=== PATIENT | female | born 1950 | race Hispanic/Latino ===

== ENCOUNTER 2020-01-27 11:12 | Inpatient (IN) | payer MEDICARE ==
[2020-01-27] MEDS ORDERED: MORPHINE 4 MG/1 ML INJ IV ONE ×2 (11:29→15:08)
[2020-01-27] MEDS ORDERED: ONDANSETRON 4 MG/2 ML INJ IV ONE ×2 (11:29→15:09)
[2020-01-27] MEDS ORDERED: FAMOTIDINE 20 MG/2 ML INJ IV ONE (11:30)
--- NOTE | 2020-01-27 11:32 | Emergency Department Report ---
ED N/V/D HPI - General Chief complaint: Abdominal Pain Stated complaint: ABDOMINAL PAIN Time Seen by Provider: 01/27/20 11:24 Source: EMS Mode of arrival: Ambulatory Limitations: No Limitations - History of Present Illness Initial comments: 70-year-old female with past medical history of hypertension and previous partial colectomy possibly secondary to perforated diverticulum (based on what patient describes ) presents to the hospital complaints of nausea, vomiting, abdominal pain for the last 2 days. Unable to tolerate p.o. Patient had a constant hard generalized pain worse in the mid and lower abdomen. Worse with palpation. No alleviating factors. She denies fever. Last bowel movement was approximately 1 week ago. She denies hematemesis but states the vomitus in color. Patient had her abdominal surgery performed by Dr. Powell 2 to 3 years ago at [facility]. Patient states she has been evaluated by Dr. Fuchs GI physician in the past - Related Data Allergies Allergy/AdvReac Type Severity Reaction Status Date / Time No Known Allergies Allergy Unverified 01/27/20 11:26 ED Review of Systems ROS: Stated complaint: ABDOMINAL PAIN Other details as noted in HPI Comment: All other systems reviewed and negative ED Past Medical Hx - Past Medical History Previous Medical History?: Yes Hx Hypertension: Yes - Surgical History Past Surgical History?: Yes Additional Surgical History: colon resection - Social History Smoking Status: Never Smoker Substance Use Type: None ED Physical Exam - General Limitations: No Limitations - Other Other exam information: General: Mild distress secondary to pain and vomiting Head: Atraumatic Eyes: normal appearance ENT: Moist mucous membranes Neck: Normal appearance, no midline tenderness Chest: Clear to auscultation bilaterally CV: Regular rate and rhythm Abdomen: Soft, diminished bowel sounds, previous surgical scars noted. Generalized pain greatest in the mid abdomen. No rebound or guarding. Active vomiting Back: Normal inspection Extremity: Normal inspection, full range of motion Neuro: Alert O x 3, no facial asymmetry, speech clear, no gross motor sensory deficit Psych: Appropriate behavior Skin: No rash ED Course Vital Signs 01/27/20 01/27/20 01/27/20 11:19 11:26 12:21 Temperature 97.9 F Pulse Rate 82 Respiratory 18 18 18 Rate Blood Pressure 145/55 Blood Pressure 145/55 [Right] O2 Sat by Pulse 100 100 Oximetry 01/27/20 15:12 Temperature Pulse Rate Respiratory 18 Rate Blood Pressure Blood Pressure [Right] O2 Sat by Pulse Oximetry - Consultations Consultation #1: 01/27/20 15:39 Case discussed with general surgeon Dr. Francois who is at the bedside evaluating patient. NG tube recommended if patient continues to vomit despite antiemetic. Recommend GI consultation Case also discussed with Dr. Kenny GI physician. Patient received GI consult during admission ED Medical Decision Making - Lab Data Result diagrams: 01/27/20 11:40 01/27/20 11:40 Lab Results 01/27/20 01/27/20 01/27/20 Range/Units 11:40 11:40 11:40 WBC 7.0 (4.5-11.0) K/mm3 RBC 4.88 (3.65-5.03) M/mm3 Hgb 13.2 (10.1-14.3) gm/dl Hct 39.1 (30.3-42.9) % MCV 80 (79-97) fl MCH 27 L (28-32) pg MCHC 34 (30-34) % RDW 18.3 H (13.2-15.2) % Plt Count 410 (140-440) K/mm3 Lymph % (Auto) 10.4 L (13.4-35.0) % [place] % (Auto) 6.9 (0.0-7.3) % Eos % (Auto) 0.0 (0.0-4.3) % Baso % (Auto) 0.1 (0.0-1.8) % Lymph # (Auto) 0.7 L (1.2-5.4) K/mm3 [place] # (Auto) 0.5 (0.0-0.8) K/mm3 Eos # (Auto) 0.0 (0.0-0.4) K/mm3 Baso # (Auto) 0.0 (0.0-0.1) K/mm3 Seg Neutrophils % 82.6 H (40.0-70.0) % Seg Neutrophils # 5.8 (1.8-7.7) K/mm3 Sodium 139 (137-145) mmol/L Potassium 2.9 L* (3.6-5.0) mmol/L Chloride 96.8 L (98-107) mmol/L Carbon Dioxide 31 H (22-30) mmol/L Anion Gap 14 mmol/L BUN 14 (7-17) mg/dL Creatinine 0.5 L (0.6-1.2) mg/dL Estimated GFR > 60 ml/min BUN/Creatinine Ratio 28 % Glucose 133 H (65-100) mg/dL Calcium 8.4 (8.4-10.2) mg/dL Magnesium (1.7-2.3) mg/dL Total Bilirubin 0.40 (0.1-1.2) mg/dL AST 12 (5-40) units/L ALT 7 (7-56) units/L Alkaline Phosphatase 120 (35-129) units/L Total Protein 7.2 (6.3-8.2) g/dL Albumin 3.5 L (3.9-5) g/dL Albumin/Globulin Ratio 0.9 % Lipase 11 L (13-60) units/L 01/27/20 Range/Units 11:40 WBC (4.5-11.0) K/mm3 RBC (3.65-5.03) M/mm3 Hgb (10.1-14.3) gm/dl Hct (30.3-42.9) % MCV (79-97) fl MCH (28-32) pg MCHC (30-34) % RDW (13.2-15.2) % Plt Count (140-440) K/mm3 Lymph % (Auto) (13.4-35.0) % [place] % (Auto) (0.0-7.3) % Eos % (Auto) (0.0-4.3) % Baso % (Auto) (0.0-1.8) % Lymph # (Auto) (1.2-5.4) K/mm3 [place] # (Auto) (0.0-0.8) K/mm3 Eos # (Auto) (0.0-0.4) K/mm3 Baso # (Auto) (0.0-0.1) K/mm3 Seg Neutrophils % (40.0-70.0) % Seg Neutrophils # (1.8-7.7) K/mm3 Sodium (137-145) mmol/L Potassium (3.6-5.0) mmol/L Chloride (98-107) mmol/L Carbon Dioxide (22-30) mmol/L Anion Gap mmol/L BUN (7-17) mg/dL Creatinine (0.6-1.2) mg/dL Estimated GFR ml/min BUN/Creatinine Ratio % Glucose (65-100) mg/dL Calcium (8.4-10.2) mg/dL Magnesium 2.00 (1.7-2.3) mg/dL Total Bilirubin (0.1-1.2) mg/dL AST (5-40) units/L ALT (7-56) units/L Alkaline Phosphatase (35-129) units/L Total Protein (6.3-8.2) g/dL Albumin (3.9-5) g/dL Albumin/Globulin Ratio % Lipase (13-60) units/L - Radiology Data Radiology results: report reviewed CT abdomen pelvis w con INDICATION: n,v hx of obstruction and parital colon resection. TECHNIQUE: All CT scans at this location are performed using CT dose reduction for ALARA by means of automated exposure control. COMPARISON: None available. FINDINGS: Lung bases are clear of acute disease. Slight atelectasis in the left base laterally. Diffuse hepatic steatosis, with no focal liver lesions. Gallbladder, spleen, pancreas, kidneys and adrenals are negative. Abdominal aorta is atherosclerotic but normal in size. No significant adenopathy. Pelvis The right colon and proximal transverse colon are fluid-filled and quite distended. Splenic flexure and more distal colon are normally distended, with postop change near the rectosigmoid junction, probably due to sigmoid resection. There are 3 ventral hernias. The superior midline hernia contains only fat, more inferior midline hernia appears to contain some mesentery but no bowel. However, the left mid abdominal hernia contains a loop of small bowel, but there does not appear to be obstruction at this level. There does appear to be obstruction at the level of the mid transverse colon. A discrete mass is difficult to identify, but there is abrupt transition between markedly distended proximal transverse colon and normal sized distal transverse colon, with dense soft tissue at the level of the transition, quite possibly mass. Urinary bladder is thick walled but unremarkable. Distal ureters are negative. Uterus is absent. Old right-sided pelvic fractures. Extensive bilateral sacral insufficiency fractures. No destructive lesions. IMPRESSION: 1. Obstruction at the level of mid transverse colon, quite possibly due to obstructing mass. 2. Postop change at the rectosigmoid junction, probably due to previous sigmoid resection, but there is no evidence of obstruction or abnormal mass at this level. 3. 3 separate ventral hernias, with the left-sided hernia containing a loop of small bowel. However, there is no evidence of obstruction at this level. 4. Hepatic steatosis. - Medical Decision Making Patient presents to the hospital nausea and vomiting. CT suggestive of large bowel structure secondary to colonic mass. Patient n.p.o. and received IV potassium for hypokalemia Critical Care Time: No Critical care attestation.: If time is entered above; I have spent that time in minutes in the direct care of this critically ill patient, excluding procedure time. ED Disposition Clinical Impression: Large bowel obstruction, History of partial surgical removal of colon, Hypokalemia, Colonic mass Ventral hernia Qualifiers: Obstruction and gangrene presence: without obstruction or gangrene Qualified Code(s): K43.9 - Ventral hernia without obstruction or gangrene Disposition: OP ADMIT IP TO THIS HOSP Is pt being admited?: Yes Condition: Stable Instructions: Abdominal Pain (ED) Referrals: PRIMARY CARE, [Primary Care Provider] - 3-5 Days Time of Disposition: 15:39 (Dr Tello/hosp)
[2020-01-27] MEDS ORDERED: SODIUM CHLORIDE 0.9% 1000 ML 1,000 ML IV ONE (11:40)
[2020-01-27 12:40] LABS: Basophils % (Auto) 0.1 % (0.0-1.8); Hematocrit 39.1 % (30.3-42.9); Hemoglobin 13.2 gm/dl (10.1-14.3); Lymphocytes # (Auto) 0.7 K/mm3 (1.2-5.4); Lymphocytes % (Auto) 10.4 % (13.4-35.0); Mean Corpuscular HGB Conc 34 % (30-34); Mean Corpuscular Volume 80 fl (79-97); Monocytes # (Auto) 0.5 K/mm3 (0.0-0.8); Monocytes % (Auto) 6.9 % (0.0-7.3); Platelet Count 410 K/mm3 (140-440); Red Blood Count 4.88 M/mm3 (3.65-5.03); Red Cell Distribution Width 18.3 % (13.2-15.2)
[2020-01-27 12:49] LABS: Alanine Aminotransferase 7 units/L (7-56); Albumin 3.5 g/dL (3.9-5); Blood Urea Nitrogen 14 mg/dL (7-17); Calcium 8.4 mg/dL (8.4-10.2); Hemolysis Index 18
[2020-01-27 12:52] LABS: BUN/Creatinine Ratio 28
[2020-01-27] MEDS: POTASSIUM CHLORIDE 10 MEQ 10 MEQ/100 ML BAG IV SCH ×4 (14:06→17:47)
--- NOTE | 2020-01-27 14:32 | Cat Scan Report ---
CT abdomen pelvis w con INDICATION: n,v hx of obstruction and parital colon resection. TECHNIQUE: All CT scans at this location are performed using CT dose reduction for ALARA by means of automated e xposure control. COMPARISON: None available. FINDINGS: Lung bases are clear of acute disease. Slight atelectasis in the left base laterally. Diffuse hepatic steatosis, with no focal liver lesions. Gallbladder, spleen, pancreas, kidneys and ad renals are negative. Abdominal aorta is atherosclerotic but normal in size. No significant adenopathy . Pelvis The right colon and proximal transverse colon are fluid-filled and quite distended. Splenic flexure a nd more distal colon are normally distended, with postop change near the rectosigmoid junction, proba james due to sigmoid resection. There are 3 ventral hernias. The superior midline hernia contains only fat, more inferior midline hernia appears to contain some mesentery but no bowel. However, the left m id abdominal hernia contains a loop of small bowel, but there does not appear to be obstruction at th is level. There does appear to be obstruction at the level of the mid transverse colon. A discrete mass is diff icult to identify, but there is abrupt transition between markedly distended proximal transverse colo n and normal sized distal transverse colon, with dense soft tissue at the level of the transition, qu ite possibly mass. Urinary bladder is thick walled but unremarkable. Distal ureters are negative. Uterus is absent. Old right-sided pelvic fractures. Extensive bilateral sacral insufficiency fractures. No destructive lesions. IMPRESSION: 1. Obstruction at the level of mid transverse colon, quite possibly due to obstructing mass. 2. Postop change at the rectosigmoid junction, probably due to previous sigmoid resection, but there is no evidence of obstruction or abnormal mass at this level. 3. 3 separate ventral hernias, with the left-sided hernia containing a loop of small bowel. However, there is no evidence of obstruction at this level. 4. Hepatic steatosis. Signer Name: Sotero Solomon MD Signed: 01/27/2020 2:27 PM Workstation Name: [id number]
[2020-01-27] MEDS ORDERED: SODIUM CHLORIDE 0.9% 1000 ML 1,000 ML ONE ×3 (14:45→17:34)
[2020-01-27] MEDS ORDERED: MORPHINE 4 MG/1 ML INJ ONE (15:01)
[2020-01-27] MEDS ORDERED: ONDANSETRON 4 MG/2 ML INJ ONE (15:01)
--- NOTE | 2020-01-27 15:40 | History and Physical Report ---
History of Present Illness Chief complaint: I cannot hold anything down History of present illness: 70 YO Female with HTN, GERD, Cervical Cancer, Chronic Hypokalemia S/P Bowel Resection, Nicotine Dependence presents to ED for evaluation. Patient states that she has experienced abdominal discomfort over the past several months with acutely worsening symptoms over the past 2 days. Patient acknowledges early satiety, nausea, feeling bloated, burping, hiccups, as well as multiple episodes of vomiting over the past 2 days. EMS was notified and upon arrival the patient was found to be in distress and subsequently transported to [facility] for further care and evaluation of the aforementioned symptoms. Patient seen and evaluated in the emergency department. All lab and imaging studies reviewed. Patient underwent CT scan of the abdomen and pelvis which revealed a large bowel obstruction. Patient admitted to surgical floor due to increased risk of worsening symptoms. Patient initiated on IV fluid resuscitation therapy. NG tube for gastric decompression with offered in the emergency department however the patient declined at the time of my evaluation. Patient denies fever, chills, chest pain, palpitations, productive cough, skin rash, recent ill contacts, or known exposure to COVID-19. All medication listed at time of admission has been reconciled. Advanced care planning conducted in the emergency department. Past History Past Medical History: cancer, GERD, hypertension Past Surgical History: hysterectomy, bowel surgery, Other (ISOs of [id number] metabolic versus) Social history: , smoking. denies: alcohol abuse, prescription drug abuse Family history: hypertension Medications and Allergies Allergies Allergy/AdvReac Type Severity Reaction Status Date / Time No Known Allergies Allergy Unverified 01/27/20 11:26 Active Meds: Active Medications Potassium Chloride (Kcl 10meq/100ml) 10 meq in 100 mls @ 100 mls/hr IV Q1H JAYY Stop: 01/27/20 16:59 Last Admin: 01/27/20 15:07 Dose: 100 mls/hr Documented by: Review of Systems Constitutional: no weight loss, no weight gain, no fever, no chills Ears, nose, mouth and throat: no ear pain, no ear discharge, no tinnitis, no decreased hearing, no nose pain Breasts: no change in shape, no swelling, no mass Cardiovascular: no chest pain, no orthopnea, no palpitations, no rapid/irregular heart beat, no edema Respiratory: no cough, no cough with sputum, no excessive sputum, no hemoptysis, no shortness of breath Gastrointestinal: abdominal pain, nausea, vomiting, constipation, early satiety, no hematemesis, no coffee ground emesis, no BRBPR, no melena, no hematochezia Genitourinary Female: no pelvic pain, no flank pain, no dysuria, no urinary frequency, no urgency Rectal: no pain, no incontinence, no bleeding Musculoskeletal: no neck stiffness, no neck pain, no shooting arm pain, no arm numbness/tingling, no low back pain, no leg numbness/tingling Integumentary: no rash, no pruritis, no redness, no sores, no wounds Neurological: no transient paralysis, no paralysis, no weakness, no parathesias, no numbness, no tingling, no seizures Psychiatric: no anxiety, no memory loss, no change in sleep habits, no sleep disturbances, no insomnia, no hypersomnia, no change in appetite Endocrine: no cold intolerance, no heat intolerance, no polyphagia, no excessive thirst, no polydipsia, no polyuria Hematologic/Lymphatic: no easy bruising, no easy bleeding, no lymphadenopathy, no lymphedema Allergic/Immunologic: no urticaria, no allergic rhinitis, no anaphylaxis, no angioedema Exam - Constitutional Vitals: Temp Pulse Resp BP Pulse Ox 97.9 F 87 18 145/55 100 01/27/20 11:19 01/27/20 11:19 01/27/20 15:12 01/27/20 11:19 01/27/20 11:26 General appearance: Present: no acute distress, mild distress, well-nourished - EENT Eyes: Present: PERRL ENT: hearing intact, clear oral mucosa - Neck Neck: Present: supple, normal ROM - Respiratory Respiratory effort: normal Respiratory: bilateral: CTA - Cardiovascular Heart Sounds: Present: S1 & S2. Absent: rub, click - Extremities Extremities: pulses symmetrical, No edema Peripheral Pulses: within normal limits - Abdominal General gastrointestinal: Present: soft, non-tender, non-distended, normal bowel sounds Localized gastrointestinal: tender: epigastric periumbilical Female genitourinary: Present: normal - Integumentary Integumentary: Present: clear, warm, dry - Musculoskeletal Musculoskeletal: gait normal, strength equal bilaterally - Psychiatric Psychiatric: appropriate mood/affect, intact judgment & insight - Neurologic Neurologic: CNII-XII intact, moves all extremities Results - Labs CBC & Chem 7: 01/27/20 11:40 01/27/20 11:40 Labs: Abnormal lab results 01/27/20 01/27/20 01/27/20 Range/Units 11:40 11:40 11:40 MCH 27 L (28-32) pg RDW 18.3 H (13.2-15.2) % Lymph % (Auto) 10.4 L (13.4-35.0) % Lymph # (Auto) 0.7 L (1.2-5.4) K/mm3 Seg Neutrophils % 82.6 H (40.0-70.0) % Potassium 2.9 L* (3.6-5.0) mmol/L Chloride 96.8 L (98-107) mmol/L Carbon Dioxide 31 H (22-30) mmol/L Creatinine 0.5 L (0.6-1.2) mg/dL Glucose 133 H (65-100) mg/dL Albumin 3.5 L (3.9-5) g/dL Lipase 11 L (13-60) units/L Assessment and Plan - Patient Problems (1) Large bowel obstruction Current Visit: Yes Status: Acute Plan to address problem: CT scan abdomen and pelvis, surgical team consulted, GI team consulted, serial physical exam, n.p.o., further care and evaluation as per surgical team. Nasogastric decompression attempted. Patient declined NG tube at the time of my evaluation. (2) Hypokalemia Current Visit: Yes Status: Acute Plan to address problem: Repleted in ED, repeat BMP in a.m. (3) Hypertension Current Visit: Yes Status: Acute Qualifiers: Hypertension type: essential hypertension Qualified Code(s): I10 - Es sential (primary) hypertension Plan to address problem: Monitor blood pressure every shift, continue medical management (4) GERD (gastroesophageal reflux disease) Current Visit: Yes Status: Acute Qualifiers: Esophagitis presence: without esophagitis Qualified Code(s): K21.9 - Gastro-esophageal reflux disease without esophagitis Plan to address problem: PPI therapy, supportive care. (5) DVT prophylaxis Current Visit: Yes Status: Acute Plan to address problem: SCD to bilateral lower extremities while in bed (6) Advance care planning Current Visit: Yes Status: Acute Plan to address problem: Disease education conducted, patient is full code, care plan discussed, prognosis discussed, patient knowledges understanding and agreement with care plan, +30 minutes. (7) Nicotine dependence unspecified, with withdrawal Current Visit: Yes Status: Acute Qualifiers: Nicotine product type: cigarettes Qualified Code(s): F17.213 - Nicotine dependence, cigarettes, with withdrawal Plan to address problem: Supportive care, behavior change counseling, +15 minutes.
[2020-01-27] MEDS ORDERED: LIDOCAINE VISCOUS 2% 15 ML ORAL LIQD PO ONE (16:01)
--- NOTE | 2020-01-27 16:18 | Consultation ---
History of Present Illness Consult date: 01/27/20 Reason for consult: abdominal pain Chief complaint: abdominal pain - History of present illness History of present illness: 70-year-old female with past medical history of hypertension, perforated diverti culitis status post ex lap Padilla's procedure with subsequent reversal by Dr. Powell at [facility]. The patient states that she has been having intermittent left upper quadrant abdominal pain for the past several months. This is been associated with early satiety, nausea, bloating, burping/hiccups. In the last 2 days this has become more significant and has been associated with nausea and vomiting. The pain is sharp and does not radiate. She feels more bloated than usual. She has a history of chronic constipation and usually will have a bowel movement once every week, sometimes less frequently. This is normal for her. She states that her last bowel movement was 1 week ago and did not contain blood and was not dark. She states that prior to her diverticulitis surgery, she was sometimes only having bowel movements once a month. She is on Amitiza. She states that her last colonoscopy was 2 or so years ago, after her Padilla's procedure but before her reversal. She also had an EGD at this time. She was not informed of any abnormal findings. Her pain has been controlled with morphine given to her in the emergency room. No fevers or chills, chest pain, shortness of breath. Past History Past Medical History: GERD, hypertension, other (Cervical cancer, chronic hypokalemia) Past Surgical History: hysterectomy, bowel surgery (Exploratory laparotomy, Padilla's procedure. Reversal of colostomy.) Social history: smoking (2 packs every 3 days). denies: alcohol abuse, presc ription drug abuse Family history: no significant family history Medications and Allergies Allergies Allergy/AdvReac Type Severity Reaction Status Date / Time No Known Allergies Allergy Unverified 01/27/20 11:26 Active Meds: Active Medications Potassium Chloride (Kcl 10meq/100ml) 10 meq in 100 mls @ 100 mls/hr IV Q1H JAYY Stop: 01/27/20 16:59 Last Admin: 01/27/20 16:03 Dose: 100 mls/hr Documented by: Review of Systems All systems: negative (10 point ROS performed and negative except for that listed in HPI) Exam Vital Signs Temp Pulse Resp BP Pulse Ox 97.7 F 87 18 145/55 100 01/27/20 11:19 01/27/20 11:19 01/27/20 11:19 01/27/20 11:19 01/27/20 11:19 Narrative exam: Gen.: Awake, alert, oriented 3. No apparent distress ENT: Dry mucous membranes. Trachea midline. No lymphadenopathy. No scleral icterus or conjunctival pallor CV: S1, S2 present Respiratory: No audible wheezes Abdomen: Soft, mildly distended, mild discomfort on palpation of the left upper quadrant and right upper quadrant. No rebound, rigidity, guarding Extremities: No clubbing, cyanosis, edema Results - Labs 01/27/20 11:40 01/27/20 11:40 Abnormal lab results 01/27/20 01/27/20 01/27/20 Range/Units 11:40 11:40 11:40 MCH 27 L (28-32) pg RDW 18.3 H (13.2-15.2) % Lymph % (Auto) 10.4 L (13.4-35.0) % Lymph # (Auto) 0.7 L (1.2-5.4) K/mm3 Seg Neutrophils % 82.6 H (40.0-70.0) % Potassium 2.9 L* (3.6-5.0) mmol/L Chloride 96.8 L (98-107) mmol/L Carbon Dioxide 31 H (22-30) mmol/L Creatinine 0.5 L (0.6-1.2) mg/dL Glucose 133 H (65-100) mg/dL Albumin 3.5 L (3.9-5) g/dL Lipase 11 L (13-60) units/L Diabetes panel 01/27/20 Range/Units 11:40 Sodium 139 (137-145) mmol/L Potassium 2.9 L* (3.6-5.0) mmol/L Chloride 96.8 L (98-107) mmol/L Carbon Dioxide 31 H (22-30) mmol/L BUN 14 (7-17) mg/dL Creatinine 0.5 L (0.6-1.2) mg/dL Glucose 133 H (65-100) mg/dL Calcium 8.4 (8.4-10.2) mg/dL AST 12 (5-40) units/L ALT 7 (7-56) units/L Alkaline Phosphatase 120 (35-129) units/L Total Protein 7.2 (6.3-8.2) g/dL Albumin 3.5 L (3.9-5) g/dL Calcium panel 01/27/20 Range/Units 11:40 Calcium 8.4 (8.4-10.2) mg/dL Albumin 3.5 L (3.9-5) g/dL Pituitary panel 01/27/20 Range/Units 11:40 Sodium 139 (137-145) mmol/L Potassium 2.9 L* (3.6-5.0) mmol/L Chloride 96.8 L (98-107) mmol/L Carbon Dioxide 31 H (22-30) mmol/L BUN 14 (7-17) mg/dL Creatinine 0.5 L (0.6-1.2) mg/dL Glucose 133 H (65-100) mg/dL Calcium 8.4 (8.4-10.2) mg/dL Adrenal panel 01/27/20 Range/Units 11:40 Sodium 139 (137-145) mmol/L Potassium 2.9 L* (3.6-5.0) mmol/L Chloride 96.8 L (98-107) mmol/L Carbon Dioxide 31 H (22-30) mmol/L BUN 14 (7-17) mg/dL Creatinine 0.5 L (0.6-1.2) mg/dL Glucose 133 H (65-100) mg/dL Calcium 8.4 (8.4-10.2) mg/dL Total Bilirubin 0.40 (0.1-1.2) mg/dL AST 12 (5-40) units/L ALT 7 (7-56) units/L Alkaline Phosphatase 120 (35-129) units/L Total Protein 7.2 (6.3-8.2) g/dL Albumin 3.5 L (3.9-5) g/dL - Imaging CT scan - abdomen: report reviewed, image reviewed CT scan - pelvis: report reviewed, image reviewed Assessment and Plan 70-year-old female with 1. Near complete obstruction at mid transverse colon 2. Multiple nonobstructing ventral hernias 3. Tobacco dependence CT scan abdomen and pelvis -multiple nonobstructing ventral hernias. There is an obstructing lesion at the mid transverse colon with fluid-filled colon proximal to this. There is also mildly distended fluid-filled loops of distal small bowel. There appears to be some stool in the distal transverse and descending colon. Postsurgical changes consistent with sigmoidectomy. Plan: 1. NPO 2. IVF 3. prn nausea and pain control 4. recommend NGT placement - keep to LIWS 5. DVT ppx 6. obs series in am 7. GI consult - for eval for cscope. D/W Dr. Kenny 8. smoking cessation discussed with patient 9. Will likely need a partial colon resection this admission. She is currently stable and as proximal colon appears to be decompressing into the small bowel, not a surgical emergency. 10. Covid testing ordered 11. replace K and obtain daily BMP Plan discussed with patient. All questions answered. Will follow closely. Thank you for this consultation. Please call with any questions or concerns. Evaluation and treatment of this patient was during the time of the national and state emergency arising from COVID19 coronavirus pandemic. Treatment and procedures performed meet the current and available best practice and guidelines for patient during the COVID pandemic.
[2020-01-27] MEDS ORDERED: ONDANSETRON 4 MG/2 ML INJ IV PRN (16:26)
[2020-01-27] MEDS ORDERED: NACL 0.9%/KCL 40 MEQ 40 MEQ/1,000 ML BAG IV SCH (17:00)
[2020-01-27] MEDS ORDERED: ALBUTEROL 2.5 MG/3 ML NEBU IH PRN (17:00)
[2020-01-27] MEDS ORDERED: POTASSIUM CHLORIDE 10 MEQ 10 MEQ/100 ML BAG IV ONE (17:32)
[2020-01-27] MEDS: SODIUM CHLORIDE 0.9% 1000 ML 1,000 ML IV SCH (22:13)
[2020-01-27] MEDS: ONDANSETRON 4 MG/2 ML INJ IV PRN (22:39)
[2020-01-27] MEDS: MORPHINE 2 MG/1 ML INJ IV PRN (22:40)
[2020-01-28 05:34] LABS: Basophils % (Auto) 0.4 % (0.0-1.8); Eosinophils % (Auto) 0.5 % (0.0-4.3); Hematocrit 34.2 % (30.3-42.9); Hemoglobin 11.2 gm/dl (10.1-14.3); Lymphocytes # (Auto) 0.9 K/mm3 (1.2-5.4); Lymphocytes % (Auto) 18.5 % (13.4-35.0); Mean Corpuscular HGB Conc 33 % (30-34); Mean Corpuscular Volume 81 fl (79-97); Monocytes # (Auto) 0.7 K/mm3 (0.0-0.8); Monocytes % (Auto) 14.1 % (0.0-7.3); Platelet Count 330 K/mm3 (140-440); Red Blood Count 4.22 M/mm3 (3.65-5.03); Red Cell Distribution Width 18.7 % (13.2-15.2)
[2020-01-28 06:05] LABS: Alanine Aminotransferase 6 units/L (7-56); Albumin 3.2 g/dL (3.9-5); Blood Urea Nitrogen 9 mg/dL (7-17); Calcium 7.1 mg/dL (8.4-10.2); Hemolysis Index 3
[2020-01-28 06:08] LABS: BUN/Creatinine Ratio 23
[2020-01-28] MEDS: MORPHINE 2 MG/1 ML INJ IV PRN ×3 (06:54→22:45)
[2020-01-28] MEDS: ONDANSETRON 4 MG/2 ML INJ IV PRN ×3 (06:58→22:45)
--- NOTE | 2020-01-28 09:16 | XRay Report ---
CHEST / ABDOMEN 2 VIEW INDICATION / CLINICAL INFORMATION: n/v. COMPARISON: CT abdomen pelvis 01/27/2020; CT chest 10/25/2011 FINDINGS: SUPPORT DEVICES: None. HEART / MEDIASTINUM: No significant abnormality. LUNGS / PLEURA: Blunting of the left costophrenic angle suggests small pleural effusion. Likely assoc iated passive atelectasis. Right lung base demonstrates some linear scarring versus atelectasis. No p neumothorax. TUBES / LINES: None. BOWEL GAS PATTERN: No significant abnormality. FREE AIR / EXTRALUMINAL GAS: None seen. ADDITIONAL FINDINGS: No significant additional findings. IMPRESSION: 1. Mild left pleural-parenchymal disease. No convincing evidence of bowel obstruction or pneumoperito neum. Signer Name: Paul Garcia MD Signed: 01/28/2020 9:11 AM Workstation Name: [id number]
[2020-01-28 12:06] LABS: Bacteria,Urine 2+ /HPF (Negative); Bilirubin,Urine NEG (Negative); Blood,Urine NEG (Negative); Color,Urine Yellow (Yellow); Mucus,Urine FEW /HPF; Protein,Urine <15 mg/dL mg/dL (Negative); Urobilinogen,Urine < 2.0 mg/dL (<2.0)
--- NOTE | 2020-01-28 12:29 | Gastroenterology Consultation ---
History of Present Illness - Reason for Consult Consult date: 01/28/[address] Colon Requesting physician: PRITESH POLLARD - History of Present Illness The patient is a 70 yo female with a hx of multiple surgeries after perf diverticulitis in 2018 (colostomy, infected wound, parastomal hernia, incarceration, colostomy takedown). She had a negative colonoscopy in 2019 (poor prep) via the ostomy, before re-anastamosis. She was admitted with abdominal pain, and a CT shows a stenotic lesion in the mid-transverse (not near the anastamosis). There is no weight loss, vomiting, or blood in the stools. She is a heavy smoker. She has no family hx of colon cancer. Since admit, her abdominal pain is improved, and she is passing flatus. Past History Past Medical History: cancer, GERD, hypertension Past Surgical History: hysterectomy, bowel surgery (colostomy/re-anastamosis (tics), parastomal hernia repair, wound infection debridement) Social history: , smoking. denies: alcohol abuse, prescription drug abuse Family history: hypertension Medications and Allergies Allergies Allergy/AdvReac Type Severity Reaction Status Date / Time No Known Allergies Allergy Unverified 01/27/20 11:26 Active Meds: Active Medications Acetaminophen (Tylenol) 650 mg PO Q4H PRN PRN Reason: Pain MILD(1-3)/Fever >100.5/CHAPA Albuterol (Proventil) 2.5 mg IH Q4HRT PRN PRN Reason: Shortness Of Breath Sodium Chloride (Nacl 0.9% 1000 Ml) 1,000 mls @ 42 mls/hr IV DIRECT [facility] Last Admin: 01/27/20 22:13 Dose: 42 mls/hr Documented by: Morphine Sulfate (Morphine) 2 mg IV Q4H PRN PRN Reason: Pain , Severe (7-10) Last Admin: 01/28/20 10:55 Dose: 2 mg Documented by: Ondansetron HCl (Zofran) 4 mg IV Q8H PRN PRN Reason: Nausea And Vomiting Last Admin: 01/28/20 06:58 Dose: 4 mg Documented by: Sodium Chloride (Sodium Chloride Flush Syringe 10 Ml) 10 ml IV BID [facility] Last Admin: 01/27/20 22:38 Dose: 10 ml Documented by: Sodium Chloride (Sodium Chloride Flush Syringe 10 Ml) 10 ml IV PRN PRN PRN Reason: LINE FLUSH REVIEWED AND RECONCILED Review of Systems - Review of Systems All systems: negative (as noted in the HPI) Exam - Constitutional Vital Signs: Temp Pulse Resp BP Pulse Ox 98.1 F 88 18 145/57 97 01/28/20 06:47 01/28/20 06:47 01/28/20 06:47 01/28/20 06:47 01/28/20 08:42 General appearance: no acute distress - EENT Eyes: PERRL, EOM intact ENT: hearing intact, poor dentition - Neck Neck: supple, normal ROM - Respiratory Respiratory effort: normal Respiratory: bilateral: wheezing - Cardiovascular Rhythm: regular Heart Sounds: Present: S1 & S2 Extremities: no ischemia, No edema - Gastrointestinal General gastrointestinal: Present: soft, non-tender, non-distended, other (Multiple scars and hernias) - Integumentary Integumentary: Present: clear, warm, dry - Neurologic Neurological: alert and oriented x3 - Labs CBC & Chem 7: 01/28/20 05:20 01/28/20 05:20 Lab Results: Laboratory Results - last 24 hr 01/27/20 01/27/20 01/27/20 11:40 11:40 11:40 WBC 7.0 RBC 4.88 Hgb 13.2 Hct 39.1 MCV 80 MCH 27 L MCHC 34 RDW 18.3 H Plt Count 410 Lymph % (Auto) 10.4 L [place] % (Auto) 6.9 Eos % (Auto) 0.0 Baso % (Auto) 0.1 Lymph # (Auto) 0.7 L [place] # (Auto) 0.5 Eos # (Auto) 0.0 Baso # (Auto) 0.0 Seg Neutrophils % 82.6 H Seg Neutrophils # 5.8 Sodium 139 Potassium 2.9 L* Chloride 96.8 L Carbon Dioxide 31 H Anion Gap 14 BUN 14 Creatinine 0.5 L Estimated GFR > 60 BUN/Creatinine Ratio 28 Glucose 133 H Lactic Acid Calcium 8.4 Magnesium Total Bilirubin 0.40 AST 12 ALT 7 Alkaline Phosphatase 120 Total Protein 7.2 Albumin 3.5 L Albumin/Globulin Ratio 0.9 Lipase 11 L Urine Color Urine Turbidity Urine pH Ur Specific [place] Urine Protein Urine Glucose (UA) Urine Ketones Urine Blood Urine Nitrite Urine Bilirubin Urine Urobilinogen Ur Leukocyte Esterase Urine WBC (Auto) Urine RBC (Auto) U Epithel Cells (Auto) Urine Bacteria (Auto) Urine Mucus 01/27/20 01/28/20 01/28/20 11:40 05:20 05:20 WBC 5.0 RBC 4.22 Hgb 11.2 Hct 34.2 MCV 81 MCH 27 L MCHC 33 RDW 18.7 H Plt Count 330 Lymph % (Auto) 18.5 [place] % (Auto) 14.1 H Eos % (Auto) 0.5 Baso % (Auto) 0.4 Lymph # (Auto) 0.9 L [place] # (Auto) 0.7 Eos # (Auto) 0.0 Baso # (Auto) 0.0 Seg Neutrophils % 66.5 Seg Neutrophils # 3.3 Sodium 138 Potassium 3.3 L Chloride 102.6 Carbon Dioxide 25 Anion Gap 14 BUN 9 Creatinine 0.4 L Estimated GFR > 60 BUN/Creatinine Ratio 23 Glucose 101 H Lactic Acid Calcium 7.1 L D Magnesium 2.00 Total Bilirubin 0.20 AST 11 ALT 6 L Alkaline Phosphatase 96 Total Protein 6.2 L Albumin 3.2 L Albumin/Globulin Ratio 1.1 Lipase Urine Color Urine Turbidity Urine pH Ur Specific [place] Urine Protein Urine Glucose (UA) Urine Ketones Urine Blood Urine Nitrite Urine Bilirubin Urine Urobilinogen Ur Leukocyte Esterase Urine WBC (Auto) Urine RBC (Auto) U Epithel Cells (Auto) Urine Bacteria (Auto) Urine Mucus 01/28/20 01/28/20 06:24 11:35 WBC RBC Hgb Hct MCV MCH MCHC RDW Plt Count Lymph % (Auto) [place] % (Auto) Eos % (Auto) Baso % (Auto) Lymph # (Auto) [place] # (Auto) Eos # (Auto) Baso # (Auto) Seg Neutrophils % Seg Neutrophils # Sodium Potassium Chloride Carbon Dioxide Anion Gap BUN Creatinine Estimated GFR BUN/Creatinine Ratio Glucose Lactic Acid 1.30 Calcium Magnesium Total Bilirubin AST ALT Alkaline Phosphatase Total Protein Albumin Albumin/Globulin Ratio Lipase Urine Color Yellow Urine Turbidity Slightly-cloudy Urine pH 6.0 Ur Specific [place] 1.013 Urine Protein <15 mg/dl Urine Glucose (UA) Neg Urine Ketones 20 Urine Blood Neg Urine Nitrite Pos Urine Bilirubin Neg Urine Urobilinogen < 2.0 Ur Leukocyte Esterase Neg Urine WBC (Auto) 1.0 Urine RBC (Auto) 1.0 U Epithel Cells (Auto) 1.0 Urine Bacteria (Auto) 2+ Urine Mucus Few Assessment and Plan - Patient Problems (1) Large bowel obstruction Current Visit: Yes Status: Acute Plan to address problem: - Unclear if intrinsic (mass or ischemic stenosis) or extrinsic (adhesions, distorted anatomy) - Will attempt gently prep given mild clinical improvement, and attempt colonoscopy to diagnose cause of obstruction prior to surgery.
[2020-01-28] MEDS ORDERED: MAGNESIUM CITRATE 300 ML ORAL LIQD PO NR (15:04)
--- NOTE | 2020-01-28 15:12 | Progress Note ---
Assessment and Plan 70-year-old female with 1. Near complete obstruction at mid transverse colon 2. Multiple nonobstructing ventral hernias 3. Tobacco dependence Obstruction series 01/28/2020 -nonobstructive bowel pattern. There is stool throughout the colon Covid test negative Plan: 1. NPO, may have ice chips 2. IVF 3. prn nausea and pain control -will add Compazine 4. NG tube insertion unsuccessful 5. DVT ppx 6. PPI twice daily 7. GI recs noted and appreciateddiscussed with Dr. Kenny. We will give the patient 1 dose of mag citrate p.o. and 1 Fleet enema today in preparation for colonoscopy later this week. 8. Daily BMP, replace electrolytes as needed Patient with complex abdominal surgical history. Will await results of colonoscopy to determine cause of narrowing at transverse colon. Plan discussed with patient. Plan discussed with the patient's son at bedside, [id number] Marilynn over the telephone at her request. The patient designates Amrilynn as the point of contact as needed. Thank you for this consultation. Please call with any questions or concerns. Evaluation and treatment of this patient was during the time of the national and state emergency arising from COVID19 coronavirus pandemic. Treatment and procedures performed meet the current and available best practice and guidelines for patient during the COVID pandemic. Subjective Date of service: 01/28/20 Narrative: Patient seen and examined. She complains of intermittent nausea which is controlled with antiemetics. She had 2 episodes of emesis this morning which were small in volume. She had 2 bowel movements which were soft and brown without melena or hematochezia. She states she is not passing flatus. Minimal abdominal pain which moves from the left quadrant to the right quadrant. No fevers or chills. No chest pain. Complains of burning in the epigastric region which he states is the reason for nausea. NG tube unable to be inserted. Additional history obtained from Dr. Kenny from patient's [facility] records. The patient had emergency surgery for perforated diverticulitis for which she underwent an exploratory laparotomy with Padilla's procedure. The patient had a complicated postoperative course including wound infection, postoperative seroma. She also developed a parastomal hernia with obstruction which was repaired with another surgery. She also underwent open Padilla's reversal. Objective Vital Signs - 12hr 01/28/20 01/28/20 01/28/20 06:47 08:42 11:17 Temperature 98.1 F 99.2 F Pulse Rate 88 81 Respiratory 18 18 Rate Blood Pressure 145/57 121/44 O2 Sat by Pulse 97 97 93 Oximetry - General physical appearance Narrative Exam: Gen.: Awake, alert, oriented 3. No apparent distress ENT: Trachea midline. No lymphadenopathy. No scleral icterus or conjunctival pallor CV: S1, S2 present Respiratory: No audible wheezes Abdomen: Soft, nondistended, nontender. No rebound, rigidity, guarding Extremities: No clubbing, cyanosis, edema - Labs 01/28/20 05:20 01/28/20 05:20 Diabetes panel 01/28/20 Range/Units 05:20 Sodium 138 (137-145) mmol/L Potassium 3.3 L (3.6-5.0) mmol/L Chloride 102.6 (98-107) mmol/L Carbon Dioxide 25 (22-30) mmol/L BUN 9 (7-17) mg/dL Creatinine 0.4 L (0.6-1.2) mg/dL Glucose 101 H (65-100) mg/dL Calcium 7.1 L D (8.4-10.2) mg/dL AST 11 (5-40) units/L ALT 6 L (7-56) units/L Alkaline Phosphatase 96 (35-129) units/L Total Protein 6.2 L (6.3-8.2) g/dL Albumin 3.2 L (3.9-5) g/dL Calcium panel 01/28/20 Range/Units 05:20 Calcium 7.1 L D (8.4-10.2) mg/dL Albumin 3.2 L (3.9-5) g/dL Pituitary panel 01/28/20 Range/Units 05:20 Sodium 138 (137-145) mmol/L Potassium 3.3 L (3.6-5.0) mmol/L Chloride 102.6 (98-107) mmol/L Carbon Dioxide 25 (22-30) mmol/L BUN 9 (7-17) mg/dL Creatinine 0.4 L (0.6-1.2) mg/dL Glucose 101 H (65-100) mg/dL Calcium 7.1 L D (8.4-10.2) mg/dL Adrenal panel 01/28/20 Range/Units 05:20 Sodium 138 (137-145) mmol/L Potassium 3.3 L (3.6-5.0) mmol/L Chloride 102.6 (98-107) mmol/L Carbon Dioxide 25 (22-30) mmol/L BUN 9 (7-17) mg/dL Creatinine 0.4 L (0.6-1.2) mg/dL Glucose 101 H (65-100) mg/dL Calcium 7.1 L D (8.4-10.2) mg/dL Total Bilirubin 0.20 (0.1-1.2) mg/dL AST 11 (5-40) units/L ALT 6 L (7-56) units/L Alkaline Phosphatase 96 (35-129) units/L Total Protein 6.2 L (6.3-8.2) g/dL Albumin 3.2 L (3.9-5) g/dL
--- NOTE | 2020-01-28 16:44 | Progress Note ---
Assessment and Plan Assessment and plan: --Near complete obstruction of transverse colon . Current Visit: Yes Status: Acute Plan to address problem: N.p.o. status, IV fluids NGT intermittent suction as needed Supportive care Surgery following GI consulted --Hypokalemia Current Visit: Yes Status: Acute Plan to address problem: Replenish per protocol Monitor electrolytes, check magnesium --Hypertension Current Visit: Yes Status: Acute Plan to address problem: Monitor blood pressure Adjust medications as needed -- GERD (gastroesophageal reflux disease) Current Visit: Yes Status: Acute Plan to address problem: PPI therapy, supportive care. -- DVT prophylaxis Current Visit: Yes Status: Acute Plan to address problem: SCD to bilateral lower extremities while in bed --Advance care planning Current Visit: Yes Status: Acute Plan to address problem: Full code es. --Ongoing tobacco use; Current Visit: Yes Status: Acute Plan to address problem: Smoking cessation Advised nicotine patch as needed Glucose monitor the patient and adjust the management as needed Consultants evaluation and recommendations noted and appreciated Plan of care reviewed with the patient and her nurse History Interval history: I have seen and examined the patient at the bedside Patient's chart and medications reviewed Patient is admitted bowel obstruction Surgery evaluated the patient, n.p.o. status Patient complains of some mild discomfort in the abdomen No nausea vomiting Vital signs reviewed Hospitalist Physical - Constitutional Vitals: Temp Pulse Resp BP Pulse Ox 99.2 F 81 18 121/44 93 01/28/20 11:17 01/28/20 11:17 01/28/20 11:17 01/28/20 11:17 01/28/20 11:17 General appearance: Present: no acute distress, mild distress, well-nourished - EENT Eyes: Present: PERRL, EOM intact - Neck Neck: Present: supple, normal ROM - Respiratory Respiratory effort: normal Respiratory: bilateral: diminished, negative: rales, rhonchi, wheezing - Cardiovascular Rhythm: regular Heart Sounds: Present: S1 & S2 - Extremities Extremities: no ischemia, No edema - Abdominal General gastrointestinal: soft, non-tender, non-distended - Integumentary Integumentary: Present: clear, warm - Psychiatric Psychiatric: appropriate mood/affect, cooperative - Neurologic Neurologic: moves all extremities Results - Labs CBC & Chem 7: 01/28/20 05:20 01/29/20 07:31 Labs: Laboratory Last Values WBC 5.0 K/mm3 (4.5-11.0) 01/28/20 05:20 RBC 4.22 M/mm3 (3.65-5.03) 01/28/20 05:20 Hgb 11.2 gm/dl (10.1-14.3) 01/28/20 05:20 Hct 34.2 % (30.3-42.9) 01/28/20 05:20 MCV 81 fl (79-97) 01/28/20 05:20 MCH 27 pg (28-32) L 01/28/20 05:20 MCHC 33 % (30-34) 01/28/20 05:20 RDW 18.7 % (13.2-15.2) H 01/28/20 05:20 Plt Count 330 K/mm3 (140-440) 01/28/20 05:20 Lymph % (Auto) 18.5 % (13.4-35.0) 01/28/20 05:20 [place] % (Auto) 14.1 % (0.0-7.3) H 01/28/20 05:20 Eos % (Auto) 0.5 % (0.0-4.3) 01/28/20 05:20 Baso % (Auto) 0.4 % (0.0-1.8) 01/28/20 05:20 Lymph # (Auto) 0.9 K/mm3 (1.2-5.4) L 01/28/20 05:20 [place] # (Auto) 0.7 K/mm3 (0.0-0.8) 01/28/20 05:20 Eos # (Auto) 0.0 K/mm3 (0.0-0.4) 01/28/20 05:20 Baso # (Auto) 0.0 K/mm3 (0.0-0.1) 01/28/20 05:20 Seg Neutrophils % 66.5 % (40.0-70.0) 01/28/20 05:20 Seg Neutrophils # 3.3 K/mm3 (1.8-7.7) 01/28/20 05:20 Sodium 138 mmol/L (137-145) 01/28/20 05:20 Potassium 3.3 mmol/L (3.6-5.0) L 01/28/20 05:20 Chloride 102.6 mmol/L (98-107) 01/28/20 05:20 Carbon Dioxide 25 mmol/L (22-30) 01/28/20 05:20 Anion Gap 14 mmol/L 01/28/20 05:20 BUN 9 mg/dL (7-17) 01/28/20 05:20 Creatinine 0.4 mg/dL (0.6-1.2) L 01/28/20 05:20 Estimated GFR > 60 ml/min 01/28/20 05:20 BUN/Creatinine Ratio 23 % 01/28/20 05:20 Glucose 101 mg/dL (65-100) H 01/28/20 05:20 Lactic Acid 1.30 mmol/L (0.7-2.0) 01/28/20 06:24 Calcium 7.1 mg/dL (8.4-10.2) L D 01/28/20 05:20 Magnesium 2.00 mg/dL (1.7-2.3) 01/27/20 11:40 Total Bilirubin 0.20 mg/dL (0.1-1.2) 01/28/20 05:20 AST 11 units/L (5-40) 01/28/20 05:20 ALT 6 units/L (7-56) L 01/28/20 05:20 Alkaline Phosphatase 96 units/L (35-129) 01/28/20 05:20 Total Protein 6.2 g/dL (6.3-8.2) L 01/28/20 05:20 Albumin 3.2 g/dL (3.9-5) L 01/28/20 05:20 Albumin/Globulin Ratio 1.1 % 01/28/20 05:20 Lipase 11 units/L (13-60) L 01/27/20 11:40 Urine Color Yellow (Yellow) 01/28/20 11:35 Urine Turbidity Slightly-cloudy (Clear) 01/28/20 11:35 Urine pH 6.0 (5.0-7.0) 01/28/20 11:35 Ur Specific [place] 1.013 (1.003-1.030) 01/28/20 11:35 Urine Protein <15 mg/dl mg/dL (Negative) 01/28/20 11:35 Urine Glucose (UA) Neg mg/dL (Negative) 01/28/20 11:35 Urine Ketones 20 mg/dL (Negative) 01/28/20 11:35 Urine Blood Neg (Negative) 01/28/20 11:35 Urine Nitrite Pos (Negative) 01/28/20 11:35 Urine Bilirubin Neg (Negative) 01/28/20 11:35 Urine Urobilinogen < 2.0 mg/dL (<2.0) 01/28/20 11:35 Ur Leukocyte Esterase Neg (Negative) 01/28/20 11:35 Urine WBC (Auto) 1.0 /HPF (0.0-6.0) 01/28/20 11:35 Urine RBC (Auto) 1.0 /HPF (0.0-6.0) 01/28/20 11:35 U Epithel Cells (Auto) 1.0 /HPF (0-13.0) 01/28/20 11:35 Urine Bacteria (Auto) 2+ /HPF (Negative) 01/28/20 11:35 Urine Mucus Few /HPF 01/28/20 11:35 Coronavirus (PCR) Negative (Negative) 01/28/20 09:51 [place]/IV: Voiding Method Toilet IV Catheter Type [Right INT / Saline Lock Forearm] Active Medications - Current Medications Current Medications: Generic Name Dose Route Start Last Admin Trade Name Freq PRN Reason Stop Dose Admin Acetaminophen 650 mg 01/27/20 17:00 Tylenol PO Q4H PRN Pain MILD(1-3)/Fever >100.5/CHAPA Albuterol 2.5 mg 01/27/20 17:00 Proventil IH Q4HRT PRN Shortness Of Breath Sodium Chloride 1,000 mls @ 42 mls/hr 01/27/20 17:00 01/27/20 22:13 Nacl 0.9% 1000 Ml IV 42 mls/hr DIRECT JAYY Administration Magnesium Citrate 300 ml 01/28/20 15:04 Citrate Of Magnesia PO 01/28/20 18:00 ONCE NR Morphine Sulfate 2 mg 01/27/20 17:00 01/28/20 10:55 Morphine IV 2 mg Q4H PRN Administration Pain , Severe (7-10) Ondansetron HCl 4 mg 01/28/20 16:00 Zofran IV Q6H PRN Nausea And Vomiting Pantoprazole Sodium 40 mg 01/28/20 16:00 Protonix IV BID JAYY Prochlorperazine Edisylate 5 mg 01/28/20 16:00 Compazine IV Q6H PRN Nausea And Vomiting Sodium Chloride 10 ml 01/27/20 22:00 01/28/20 12:51 Sodium Chloride Flush Syringe 10 Ml IV Not Given BID JAYY Sodium Chloride 10 ml 01/27/20 17:00 Sodium Chloride Flush Syringe 10 Ml IV PRN PRN LINE FLUSH
[2020-01-28] MEDS: PANTOPRAZOLE 40 MG INJ IV SCH ×2 (18:00→21:48)
[2020-01-28] MEDS: SODIUM CHLORIDE 0.9% 1000 ML 1,000 ML IV SCH (18:09)
[2020-01-28] MEDS: POTASSIUM CHLORIDE 10 MEQ 10 MEQ/100 ML BAG IV SCH ×2 (21:49→22:19)
[2020-01-29] MEDS: PROCHLORPERAZINE EDISYLATE 10 MG/2 ML VIAL IV PRN ×3 (05:37→23:26)
[2020-01-29 08:24] LABS: Blood Urea Nitrogen 10 mg/dL (7-17); Hemolysis Index 5
[2020-01-29 08:27] LABS: BUN/Creatinine Ratio 20
[2020-01-29] MEDS ORDERED: MAGNESIUM CITRATE 300 ML ORAL LIQD PO SCH (10:00)
[2020-01-29] MEDS: POTASSIUM CHLORIDE 10 MEQ 10 MEQ/100 ML BAG IV SCH ×4 (10:00→18:00)
[2020-01-29] MEDS: PANTOPRAZOLE 40 MG INJ IV SCH ×2 (10:22→22:00)
[2020-01-29] MEDS: ONDANSETRON 4 MG/2 ML INJ IV PRN ×2 (10:23→19:57)
--- NOTE | 2020-01-29 10:31 | Progress Note ---
Assessment and Plan Assessment and plan: --COVID-19 test negative --Severe hypokalemia; K; 2.9 Current Visit: Yes Status: Acute Plan to address problem: Replenished with IV KCl Check magnesium levels, closely monitor electrolytes --Near complete obstruction of transverse colon Current Visit: Yes Status: Acute Plan to address problem: Symptoms slightly improved, IV fluids GI evaluation noted and appreciated, started clear liquids Possible endoscopy tomorrow per GI N.p.o. from midnight -- Hypertension/moderate control Current Visit: Yes Status: Acute Plan to address problem: Monitor blood pressure every shift, continue medical management --GERD (gastroesophageal reflux disease) Current Visit: Yes Status: Acute Plan to address problem: PPI therapy, supportive care. -- DVT prophylaxis Current Visit: Yes Status: Acute Plan to address problem: SCD to bilateral lower extremities while in bed -- Advance care planning Current Visit: Yes Status: Acute Plan to address problem: Full code --Ongoing tobacco use Current Visit: Yes Status: Acute Smoking cessation, nicotine patch as needed To closely and adjust management as needed [employer] recommendations noted and appreciated Possible endoscopy tomorrow Plan of care reviewed with the patient and her nurse History Interval history: I have seen and examined the patient at the bedside Patient feels better tolerating clear liquids Had flatus and bowel movement No new complaints vital signs stable GI evaluated possible endoscopy tomorrow Hospitalist Physical - Constitutional Vitals: Temp Pulse Resp BP Pulse Ox 98.0 F 88 16 112/64 95 01/29/20 07:12 01/29/20 07:12 01/29/20 07:12 01/29/20 07:12 01/29/20 09:10 General appearance: Present: no acute distress, mild distress, well-nourished - EENT Eyes: Present: PERRL, EOM intact - Neck Neck: Present: supple, normal ROM - Respiratory Respiratory effort: normal Respiratory: bilateral: diminished, negative: rales, rhonchi, wheezing - Cardiovascular Rhythm: regular Heart Sounds: Present: S1 & S2 - Extremities Extremities: no ischemia, No edema - Abdominal General gastrointestinal: soft, non-tender, non-distended, normal bowel sounds - Integumentary Integumentary: Present: clear, warm - Psychiatric Psychiatric: appropriate mood/affect, cooperative - Neurologic Neurologic: CNII-XII intact, moves all extremities Results - Labs CBC & Chem 7: 01/28/20 05:20 01/29/20 07:31 Labs: Laboratory Last Values WBC 5.0 K/mm3 (4.5-11.0) 01/28/20 05:20 RBC 4.22 M/mm3 (3.65-5.03) 01/28/20 05:20 Hgb 11.2 gm/dl (10.1-14.3) 01/28/20 05:20 Hct 34.2 % (30.3-42.9) 01/28/20 05:20 MCV 81 fl (79-97) 01/28/20 05:20 MCH 27 pg (28-32) L 01/28/20 05:20 MCHC 33 % (30-34) 01/28/20 05:20 RDW 18.7 % (13.2-15.2) H 01/28/20 05:20 Plt Count 330 K/mm3 (140-440) 01/28/20 05:20 Lymph % (Auto) 18.5 % (13.4-35.0) 01/28/20 05:20 [place] % (Auto) 14.1 % (0.0-7.3) H 01/28/20 05:20 Eos % (Auto) 0.5 % (0.0-4.3) 01/28/20 05:20 Baso % (Auto) 0.4 % (0.0-1.8) 01/28/20 05:20 Lymph # (Auto) 0.9 K/mm3 (1.2-5.4) L 01/28/20 05:20 [place] # (Auto) 0.7 K/mm3 (0.0-0.8) 01/28/20 05:20 Eos # (Auto) 0.0 K/mm3 (0.0-0.4) 01/28/20 05:20 Baso # (Auto) 0.0 K/mm3 (0.0-0.1) 01/28/20 05:20 Seg Neutrophils % 66.5 % (40.0-70.0) 01/28/20 05:20 Seg Neutrophils # 3.3 K/mm3 (1.8-7.7) 01/28/20 05:20 Sodium 143 mmol/L (137-145) 01/29/20 07:31 Potassium 2.9 mmol/L (3.6-5.0) L* 01/29/20 07:31 Chloride 104.0 mmol/L (98-107) 01/29/20 07:31 Carbon Dioxide 27 mmol/L (22-30) 01/29/20 07:31 Anion Gap 15 mmol/L 01/29/20 07:31 BUN 10 mg/dL (7-17) 01/29/20 07:31 Creatinine 0.5 mg/dL (0.6-1.2) L 01/29/20 07:31 Estimated GFR > 60 ml/min 01/29/20 07:31 BUN/Creatinine Ratio 20 % 01/29/20 07:31 Glucose 83 mg/dL (65-100) 01/29/20 07:31 Lactic Acid 1.30 mmol/L (0.7-2.0) 01/28/20 06:24 Calcium 7.0 mg/dL (8.4-10.2) L 01/29/20 07:31 Magnesium 2.00 mg/dL (1.7-2.3) 01/27/20 11:40 Total Bilirubin 0.20 mg/dL (0.1-1.2) 01/28/20 05:20 AST 11 units/L (5-40) 01/28/20 05:20 ALT 6 units/L (7-56) L 01/28/20 05:20 Alkaline Phosphatase 96 units/L (35-129) 01/28/20 05:20 Total Protein 6.2 g/dL (6.3-8.2) L 01/28/20 05:20 Albumin 3.2 g/dL (3.9-5) L 01/28/20 05:20 Albumin/Globulin Ratio 1.1 % 01/28/20 05:20 Lipase 11 units/L (13-60) L 01/27/20 11:40 Urine Color Yellow (Yellow) 01/28/20 11:35 Urine Turbidity Slightly-cloudy (Clear) 01/28/20 11:35 Urine pH 6.0 (5.0-7.0) 01/28/20 11:35 Ur Specific [place] 1.013 (1.003-1.030) 01/28/20 11:35 Urine Protein <15 mg/dl mg/dL (Negative) 01/28/20 11:35 Urine Glucose (UA) Neg mg/dL (Negative) 01/28/20 11:35 Urine Ketones 20 mg/dL (Negative) 01/28/20 11:35 Urine Blood Neg (Negative) 01/28/20 11:35 Urine Nitrite Pos (Negative) 01/28/20 11:35 Urine Bilirubin Neg (Negative) 01/28/20 11:35 Urine Urobilinogen < 2.0 mg/dL (<2.0) 01/28/20 11:35 Ur Leukocyte Esterase Neg (Negative) 01/28/20 11:35 Urine WBC (Auto) 1.0 /HPF (0.0-6.0) 01/28/20 11:35 Urine RBC (Auto) 1.0 /HPF (0.0-6.0) 01/28/20 11:35 U Epithel Cells (Auto) 1.0 /HPF (0-13.0) 01/28/20 11:35 Urine Bacteria (Auto) 2+ /HPF (Negative) 01/28/20 11:35 Urine Mucus Few /HPF 01/28/20 11:35 Coronavirus (PCR) Negative (Negative) 01/28/20 09:51 [place]/IV: Voiding Method Toilet IV Catheter Type [Right INT / Saline Lock Forearm] Active Medications - Current Medications Current Medications: Generic Name Dose Route Start Last Admin Trade Name Freq PRN Reason Stop Dose Admin Acetaminophen 650 mg 01/27/20 17:00 Tylenol PO Q4H PRN Pain MILD(1-3)/Fever >100.5/CHAPA Albuterol 2.5 mg 01/27/20 17:00 Proventil IH Q4HRT PRN Shortness Of Breath Sodium Chloride 1,000 mls @ 42 mls/hr 01/27/20 17:00 01/28/20 18:09 Nacl 0.9% 1000 Ml IV 42 mls/hr DIRECT JAYY Administration Potassium Chloride 10 meq in 100 mls @ 100 mls/hr 01/29/20 09:30 01/29/20 10:00 Kcl 10meq/100ml IV 01/29/20 13:29 100 mls/hr Q1H JAYY Administration Magnesium Citrate 300 ml 01/29/20 10:00 01/29/20 10:29 Citrate Of Magnesia PO 01/29/20 14:00 300 ml ONCE JAYY Administration Morphine Sulfate 2 mg 01/27/20 17:00 01/28/20 22:45 Morphine IV 2 mg Q4H PRN Administration Pain , Severe (7-10) Ondansetron HCl 4 mg 01/28/20 16:00 01/29/20 10:23 Zofran IV 4 mg Q6H PRN Administration Nausea And Vomiting Pantoprazole Sodium 40 mg 01/28/20 16:00 01/29/20 10:22 Protonix IV 40 mg BID JAYY Administration Prochlorperazine Edisylate 5 mg 01/28/20 16:00 01/29/20 05:37 Compazine IV 5 mg Q6H PRN Administration Nausea And Vomiting Sodium Chloride 10 ml 01/27/20 22:00 01/28/20 21:49 Sodium Chloride Flush Syringe 10 Ml IV 10 ml BID JAYY Administration Sodium Chloride 10 ml 01/27/20 17:00 Sodium Chloride Flush Syringe 10 Ml IV PRN PRN LINE FLUSH
--- NOTE | 2020-01-29 10:40 | Gastroenterology Progress Note ---
Assessment and Plan - Patient Problems (1) Large bowel obstruction Current Visit: Yes Status: Acute Plan to address problem: - Unclear if intrinsic (mass or ischemic stenosis) or extrinsic (adhesions, distorted anatomy) - Symptoms of obstruction much improved, and will attempt bowel prep and colonoscopy tomorrow. Subjective Date of service: 01/29/20 Principal diagnosis: Abnormal CT Colon Interval history: The patient had 2 formed BMs overnight, and no N/V for 24 hours (and is tolerating water/ice chips and Mg Citrate). There was no blood in the stool, and her abdominal pain is much better. Objective - Constitutional Vitals: Temp Pulse Resp BP Pulse Ox 98.0 F 88 16 112/64 95 01/29/20 07:12 01/29/20 07:12 01/29/20 07:12 01/29/20 07:12 01/29/20 09:10 General appearance: no acute distress - Respiratory Respiratory effort: normal Respiratory: bilateral: wheezing - Cardiovascular Rhythm: regular Heart Sounds: Present: S1 & S2 - Gastrointestinal General gastrointestinal: Present: soft, non-tender, non-distended - Labs CBC & Chem 7: 01/28/20 05:20 01/29/20 07:31 Labs: Laboratory Results - last 24 hr 01/28/20 01/28/20 01/29/20 09:51 11:35 07:31 Sodium 143 Potassium 2.9 L* Chloride 104.0 Carbon Dioxide 27 Anion Gap 15 BUN 10 Creatinine 0.5 L Estimated GFR > 60 BUN/Creatinine Ratio 20 Glucose 83 Calcium 7.0 L Urine Color Yellow Urine Turbidity Slightly-cloudy Urine pH 6.0 Ur Specific [place] 1.013 Urine Protein <15 mg/dl Urine Glucose (UA) Neg Urine Ketones 20 Urine Blood Neg Urine Nitrite Pos Urine Bilirubin Neg Urine Urobilinogen < 2.0 Ur Leukocyte Esterase Neg Urine WBC (Auto) 1.0 Urine RBC (Auto) 1.0 U Epithel Cells (Auto) 1.0 Urine Bacteria (Auto) 2+ Urine Mucus Few Coronavirus (PCR) Negative
[2020-01-29] MEDS ORDERED: POLYETHYLENE GLYCOL/ELECT SOLN 4000 ML PO SCH (16:00)
[2020-01-29] MEDS ORDERED: SODIUM CHLORIDE 0.9% 1000 ML 1,000 ML with POTASSIUM CHLORIDE 20 MEQ IV SCH (16:35)
--- NOTE | 2020-01-29 17:30 | Progress Note ---
Assessment and Plan 70-year-old female with 1. Near complete obstruction at mid transverse colon 2. Multiple nonobstructing ventral hernias 3. Tobacco dependence Obstruction series 01/28/2020 -nonobstructive bowel pattern. There is stool throughout the colon Covid test negative Plan: 1. clear liquid diet, NPO p MN 2. IVF 3. prn nausea and pain control 4. DVT ppx 5. PPI twice daily 6. GI recs noted and appreciateddiscussed with Dr. Kenny. Pt for cscope tomorrow 8. Daily BMP, replace electrolytes as needed Patient with complex abdominal surgical history. Will await results of colonoscopy to determine cause of narrowing at transverse colon. Thank you for this consultation. Please call with any questions or concerns. Evaluation and treatment of this patient was during the time of the national and state emergency arising from COVID19 coronavirus pandemic. Treatment and procedures performed meet the current and available best practice and guidelines for patient during the COVID pandemic. Subjective Date of service: 01/29/20 Narrative: Pt seen and examined. +Nausea but not vomiting. +BM. +Flatus. Tolerating clears. No abdominal pain. Objective Vital Signs - 12hr 01/29/20 01/29/20 01/29/20 07:12 09:10 11:07 Temperature 98.0 F 98.7 F Pulse Rate 88 89 Respiratory 16 20 Rate Blood Pressure 112/64 141/60 O2 Sat by Pulse 92 95 96 Oximetry - General physical appearance Narrative Exam: Gen.: Awake, alert, oriented 3. No apparent distress ENT: Trachea midline. No lymphadenopathy. No scleral icterus or conjunctival pallor CV: S1, S2 present Respiratory: No audible wheezes Abdomen: Soft, nondistended, nontender. No rebound, rigidity, guarding Extremities: No clubbing, cyanosis, edema - Labs 01/28/20 05:20 01/29/20 07:31 Diabetes panel 01/29/20 Range/Units 07:31 Sodium 143 (137-145) mmol/L Potassium 2.9 L* (3.6-5.0) mmol/L Chloride 104.0 (98-107) mmol/L Carbon Dioxide 27 (22-30) mmol/L BUN 10 (7-17) mg/dL Creatinine 0.5 L (0.6-1.2) mg/dL Glucose 83 (65-100) mg/dL Calcium 7.0 L (8.4-10.2) mg/dL Calcium panel 01/29/20 Range/Units 07:31 Calcium 7.0 L (8.4-10.2) mg/dL Pituitary panel 01/29/20 Range/Units 07:31 Sodium 143 (137-145) mmol/L Potassium 2.9 L* (3.6-5.0) mmol/L Chloride 104.0 (98-107) mmol/L Carbon Dioxide 27 (22-30) mmol/L BUN 10 (7-17) mg/dL Creatinine 0.5 L (0.6-1.2) mg/dL Glucose 83 (65-100) mg/dL Calcium 7.0 L (8.4-10.2) mg/dL Adrenal panel 01/29/20 Range/Units 07:31 Sodium 143 (137-145) mmol/L Potassium 2.9 L* (3.6-5.0) mmol/L Chloride 104.0 (98-107) mmol/L Carbon Dioxide 27 (22-30) mmol/L BUN 10 (7-17) mg/dL Creatinine 0.5 L (0.6-1.2) mg/dL Glucose 83 (65-100) mg/dL Calcium 7.0 L (8.4-10.2) mg/dL
[2020-01-29] MEDS: MORPHINE 2 MG/1 ML INJ IV PRN (19:56)
[2020-01-29] MEDS: NACL 0.9%/KCL 20 MEQ 20 MEQ/1,000 ML BAG IV SCH (23:34)
[2020-01-30] MEDS: MORPHINE 2 MG/1 ML INJ IV PRN ×2 (00:49→06:35)
[2020-01-30] MEDS: ONDANSETRON 4 MG/2 ML INJ IV PRN ×4 (00:49→21:32)
[2020-01-30 06:44] LABS: Blood Urea Nitrogen 7 mg/dL (7-17); Calcium 7.2 mg/dL (8.4-10.2); Hemolysis Index 4
[2020-01-30 06:55] LABS: BUN/Creatinine Ratio 14
[2020-01-30] MEDS ORDERED: SODIUM CHLORIDE 0.9% 1000 ML 1,000 ML IV SCH (08:30)
[2020-01-30] MEDS ORDERED: SODIUM CHLORIDE 0.9% 1000 ML 1,000 ML ONE (09:12)
--- NOTE | 2020-01-30 09:18 | Anesthesia Consultation ---
Anesthesia Consult and Med Hx Date of service: 01/30/20 - Airway Anesthetic Teeth Evaluation: Edentulous ROM Head & Neck: Adequate Mental/Hyoid Distance: Adequate Mallampati Class: Class II - Pre-Operative Health Status ASA Pre-Surgery Classification: ASA3 Proposed Anesthetic Plan: MAC - Pulmonary Hx Smoking: Yes (1/2 PPD) Hx Asthma: No Hx Respiratory Symptoms: No SOB: No COPD: No Home Oxygen Therapy: No Hx Pneumonia: No Hx Sleep Apnea: No - Cardiovascular System Hx Hypertension: Yes Hx Coronary Artery Disease: No Hx Heart Attack/AMI: No Hx Angina: No Hx Percutaneous Transluminal Coronary Angioplasty (PTCA): No Hx Cardia Arrhythmia: No Hx Pacemaker: No Hx Internal Defibrillator: No Hx Valvular Heart Disease: No Hx Heart Murmur: No Hx Peripheral Vascular Disease: Yes - Central Nervous System Hx Neuromuscular Disorder: No (Fx pelvic bone/T11) Hx Seizures: No CVA: No Hx Back Pain: No Hx Psychiatric Problems: No - Gastrointestinal Hx Ulcer: No Hx Gastroesophageal Reflux Disease: Yes - Endocrine Hx Renal Disease: No (incontinence ) Hx End Stage Renal Disease: No Hx Cirrhosis: No Hx Liver Disease: No Hx Insulin Dependent Diabetes: No Hx Non-Insulin Dependent Diabetes: No Hx Thyroid Disease: No Hx Hypothyroidism: No Hx Hyperthyroidism: No - Hematic Hx Anemia: No Hx Sickle Cell Disease: No - Other Systems Hx Alcohol Use: No Hx Substance Use: No Hx Cancer: Yes (cervical cancer) Hx Obesity: No
--- NOTE | 2020-01-30 09:22 | Anesthesia Day of Surgery ---
Anesthesia Day of Surgery - Day of Surgery Patient Examined: Yes Patient H&P Reviewed: Yes Patient is NPO: Yes
[2020-01-30] MEDS ORDERED: LIDOCAINE MPF (2%) 20 MG/1 ML VIAL 5 ML ONE (10:24)
[2020-01-30] MEDS ORDERED: propofoL 200 MG/20 ML VIAL IV ONE ×2 (10:24→10:41)
--- NOTE | 2020-01-30 10:59 | Post Operative Note ---
Pre-op diagnosis: Colon lesion Post-op diagnosis: other (Colon stricture, poor prep, Colon lesion) Findings: 1. Benign colon stricture at approx 15cm from the anus (site of prior colorectal anastamosis) - Adult colonoscope would not pass - Dilated to 13.5mm with a TTS ballon - Upper endoscope advanced through narrowing with ease 2. Poor prep of left colon (solid and liquid stool throughout) 3. Endoscope advance to severe stenotic lesion in transverse colon and could not pass; no significant lumen seen - Concern would be for applecore colon cancer, ischemic colitis (focal), or unknown prior anastamosis - Biopsied lesion - Area marked with 5ml of thalia ink Procedure: Incomplete colonoscopy (due to obstruction/stricture in transverse colon) with cold biopsy, balloon dilation, and thalia ink tattoo Anesthesia: MAC Surgeon: BROCK SINGH Estimated blood loss: minimal Pathology: list (1. Transverse colon stricture) Specimen disposition: to lab Condition: stable Disposition: floor (Recs: 1. Clear liquid diet (since Xrays improved, and patient appears to be passing some liquid). 2. Miralax TID therapy. 3. Repeat dilation of the rectosigmoid stenosis can be performed. 4. I suspect transverse colon stricture (given severity) will need surgical resection. 5. Patient must absolutely d/c all tobacco. 6. KUB in AM. 7. Consider TPN or PPN if needed. 8. Discussed with surgery; given multiple strictures, could consider subtotal colectomy.)
--- NOTE | 2020-01-30 11:29 | Post Anesthesia Evaluation ---
- Post Anesthesia Evaluation Patient Participated: Yes Airway Patent: Yes Stable Respiratory Function: Yes Nausea/Vomiting: No Temp > 96.8F: Yes Pain Manageable: Yes Adequeate Hydration: Yes Anesthesia Complications: No Block Receding Appropriately: Not Applicable Patient on Ventilator: No
--- NOTE | 2020-01-30 11:49 | Operative Report ---
ENDOSCOPY DOCUMENT PROCEDURE PERFORMED: Incomplete colonoscopy to the transverse colon (incomplete due to stenosis). PREOPERATIVE DIAGNOSIS: Abnormal CT scan of the colon with a transverse colon stricture. POSTOPERATIVE DIAGNOSES: Rectosigmoid stricture, transverse colon stricture, poor preparation. ENDOSCOPIST: Alex Kenny MD INSTRUMENT: Olympus video endoscope. MEDICATIONS: MAC anesthesia by [facility]hesia [facility]. COMPLICATIONS: No apparent complications. ESTIMATED BLOOD LOSS: Minimal. SPECIMENS: Transverse colon stricture. IMPLANTS: None. ASSISTANTS: None. CONDITION AT COMPLETION: Stable. TECHNIQUE: The patient was informed of the risks and benefits of the procedure. She signed the informed consent to proceed. She was placed in the left lateral decubitus position. The above sedative medications were given. Her vital signs remained stable throughout the procedure. The adult colonoscope was advanced from the rectum to approximately 15 cm from the anus; at that point, a significant, but benign appearing, surgical anastomotic stricture was encountered. We dilated to 13.5 mm, but the adult colonoscope could still not pass. We exchanged for the upper endoscope and this passed through the anastomotic stricture with ease. The endoscope was then advanced to the stricture in the transverse colon and no lumen for further passage of the scope could be seen; we performed biopsies, tattoo the area with Mehnaz ink and then withdrew the scope. The quality of preparation was poor. FINDINGS: 1. Benign appearing colon stricture at approximately 15 cm from the anus, the site of a prior colorectal anastomosis. A. The adult colonoscope would not pass. B. The stricture was dilated to 13.5 mm with a colonic balloon. C. The upper endoscope advanced easily through the narrowing after dilation. 2. Extremely poor preparation with solid and liquid stool throughout the left colon, presumably due to the rectosigmoid stricture. 3. The upper endoscope was advanced to a severe stenotic lesions seen in the transverse colon and could not pass; there was no obvious lumen seen, but there was air passing through the middle of the stricture and I do not suspect a 100% occlusion. A. The concern would be for an apple core colon cancer, focal ischemic colitis or unknown prior surgical anastomosis. B. The stricture was biopsied around the margin. C. The area was tattooed with 5 mL of submucosal Mehnaz ink. RECOMMENDATIONS: 1. Clear liquid diet, since the patient's x-rays are improved and she is passing some stool and liquid through the bowels. 2. MiraLax 3 times daily therapy. 3. Repeat dilation of the rectosigmoid stenosis can be performed. 4. I suspect the transverse colon stricture, given the severity, will need surgical resection. 5. I discussed this with General Surgery and given the multiple colon stricture, we could also consider a subtotal colectomy by colorectal surgery. 6. The patient must absolutely discontinue all tobacco. 7. Check KUB in the morning. 8. Consider intravenous nutrition if unable to tolerate clear liquids. JOB# [id number] CHARLY/NTS
[2020-01-30] MEDS: ACETAMINOPHEN 325 MG TAB PO PRN (12:23)
[2020-01-30] MEDS: POTASSIUM CHLORIDE 10 MEQ 10 MEQ/100 ML BAG IV SCH (12:23)
--- NOTE | 2020-01-30 13:00 | Progress Note ---
Assessment and Plan Assessment and plan: --COVID-19 test negative --Near complete obstruction of transverse colon Current Visit: Yes Status: Acute Plan to address problem: Symptoms slightly improved, IV fluids GI evaluation noted and appreciated, started clear liquids. Status post colonoscopy 1. Benign colon stricture at approx 15cm from the anus (site of prior colorectal anastamosis) - Adult colonoscope would not pass - Dilated to 13.5mm with a TTS ballon - Upper endoscope advanced through narrowing with ease 2. Poor prep of left colon (solid and liquid stool throughout) 3. Endoscope advance to severe stenotic lesion in transverse colon and could not pass; no significant lumen seen - Concern would be for applecore colon cancer, ischemic colitis (focal), or unknown prior anastamosis - Biopsied lesion - Area marked with 5ml of thalia ink --Severe hypokalemia; K; 2.9-3.0 today Current Visit: Yes Status: Acute Plan to address problem: Replenished with IV KCl Check magnesium levels, closely monitor electrolytes -- Hypertension/moderate control Current Visit: Yes Status: Acute Plan to address problem: Monitor blood pressure every shift, continue medical management --GERD (gastroesophageal reflux disease) Current Visit: Yes Status: Acute Plan to address problem: PPI therapy, supportive care. -- DVT prophylaxis Current Visit: Yes Status: Acute Plan to address problem: SCD to bilateral lower extremities while in bed -- Advance care planning Current Visit: Yes Status: Acute Plan to address problem: Full code --Ongoing tobacco use Current Visit: Yes Status: Acute Smoking cessation, nicotine patch as needed GI and surgery recommendations noted and appreciated We will closely monitor the patient and adjust the management as needed Plan of care reviewed with the patient and her nurse History Interval history: I have seen and examined the patient at the bedside this afternoon Patient underwent colonoscopy, findings reviewed with the GI Dr. Kenny Patient feels slightly better Vital signs noted Hospitalist Physical - Constitutional Vitals: Temp Pulse Resp BP Pulse Ox 98.6 F 89 18 140/60 97 01/30/20 11:58 01/30/20 11:58 01/30/20 11:58 01/30/20 11:58 01/30/20 11:58 General appearance: Present: no acute distress, well-nourished - EENT Eyes: Present: PERRL, EOM intact - Neck Neck: Present: supple, normal ROM - Respiratory Respiratory effort: normal Respiratory: bilateral: diminished, rales, negative: rhonchi, wheezing - Cardiovascular Rhythm: regular Heart Sounds: Present: S1 & S2 - Extremities Extremities: no ischemia, No edema - Abdominal General gastrointestinal: soft, non-tender, non-distended, normal bowel sounds - Integumentary Integumentary: Present: clear, warm - Psychiatric Psychiatric: appropriate mood/affect, cooperative - Neurologic Neurologic: moves all extremities Results - Labs CBC & Chem 7: 01/28/20 05:20 01/30/20 05:56 Labs: Laboratory Last Values WBC 5.0 K/mm3 (4.5-11.0) 01/28/20 05:20 RBC 4.22 M/mm3 (3.65-5.03) 01/28/20 05:20 Hgb 11.2 gm/dl (10.1-14.3) 01/28/20 05:20 Hct 34.2 % (30.3-42.9) 01/28/20 05:20 MCV 81 fl (79-97) 01/28/20 05:20 MCH 27 pg (28-32) L 01/28/20 05:20 MCHC 33 % (30-34) 01/28/20 05:20 RDW 18.7 % (13.2-15.2) H 01/28/20 05:20 Plt Count 330 K/mm3 (140-440) 01/28/20 05:20 Lymph % (Auto) 18.5 % (13.4-35.0) 01/28/20 05:20 Andrew % (Auto) 14.1 % (0.0-7.3) H 01/28/20 05:20 Eos % (Auto) 0.5 % (0.0-4.3) 01/28/20 05:20 Baso % (Auto) 0.4 % (0.0-1.8) 01/28/20 05:20 Lymph # (Auto) 0.9 K/mm3 (1.2-5.4) L 01/28/20 05:20 Andrew # (Auto) 0.7 K/mm3 (0.0-0.8) 01/28/20 05:20 Eos # (Auto) 0.0 K/mm3 (0.0-0.4) 01/28/20 05:20 Baso # (Auto) 0.0 K/mm3 (0.0-0.1) 01/28/20 05:20 Seg Neutrophils % 66.5 % (40.0-70.0) 01/28/20 05:20 Seg Neutrophils # 3.3 K/mm3 (1.8-7.7) 01/28/20 05:20 Sodium 141 mmol/L (137-145) 01/30/20 05:56 Potassium 3.0 mmol/L (3.6-5.0) L 01/30/20 05:56 Chloride 100.0 mmol/L (98-107) 01/30/20 05:56 Carbon Dioxide 30 mmol/L (22-30) 01/30/20 05:56 Anion Gap 14 mmol/L 01/30/20 05:56 BUN 7 mg/dL (7-17) 01/30/20 05:56 Creatinine 0.5 mg/dL (0.6-1.2) L 01/30/20 05:56 Estimated GFR > 60 ml/min 01/30/20 05:56 BUN/Creatinine Ratio 14 % 01/30/20 05:56 Glucose 92 mg/dL (65-100) 01/30/20 05:56 Lactic Acid 1.30 mmol/L (0.7-2.0) 01/28/20 06:24 Calcium 7.2 mg/dL (8.4-10.2) L 01/30/20 05:56 Magnesium 2.00 mg/dL (1.7-2.3) 01/29/20 07:31 Total Bilirubin 0.20 mg/dL (0.1-1.2) 01/28/20 05:20 AST 11 units/L (5-40) 01/28/20 05:20 ALT 6 units/L (7-56) L 01/28/20 05:20 Alkaline Phosphatase 96 units/L (35-129) 01/28/20 05:20 Total Protein 6.2 g/dL (6.3-8.2) L 01/28/20 05:20 Albumin 3.2 g/dL (3.9-5) L 01/28/20 05:20 Albumin/Globulin Ratio 1.1 % 01/28/20 05:20 Lipase 11 units/L (13-60) L 01/27/20 11:40 Urine Color Yellow (Yellow) 01/28/20 11:35 Urine Turbidity Slightly-cloudy (Clear) 01/28/20 11:35 Urine pH 6.0 (5.0-7.0) 01/28/20 11:35 Ur Specific [place] 1.013 (1.003-1.030) 01/28/20 11:35 Urine Protein <15 mg/dl mg/dL (Negative) 01/28/20 11:35 Urine Glucose (UA) Neg mg/dL (Negative) 01/28/20 11:35 Urine Ketones 20 mg/dL (Negative) 01/28/20 11:35 Urine Blood Neg (Negative) 01/28/20 11:35 Urine Nitrite Pos (Negative) 01/28/20 11:35 Urine Bilirubin Neg (Negative) 01/28/20 11:35 Urine Urobilinogen < 2.0 mg/dL (<2.0) 01/28/20 11:35 Ur Leukocyte Esterase Neg (Negative) 01/28/20 11:35 Urine WBC (Auto) 1.0 /HPF (0.0-6.0) 01/28/20 11:35 Urine RBC (Auto) 1.0 /HPF (0.0-6.0) 01/28/20 11:35 U Epithel Cells (Auto) 1.0 /HPF (0-13.0) 01/28/20 11:35 Urine Bacteria (Auto) 2+ /HPF (Negative) 01/28/20 11:35 Urine Mucus Few /HPF 01/28/20 11:35 Coronavirus (PCR) Negative (Negative) 01/28/20 09:51 [place]/IV: Voiding Method Toilet IV Catheter Type [Right INT / Saline Lock Forearm] Active Medications - Current Medications Current Medications: Generic Name Dose Route Start Last Admin Trade Name Freq PRN Reason Stop Dose Admin Acetaminophen 650 mg 01/27/20 17:00 01/30/20 12:23 Tylenol PO 650 mg Q4H PRN Administration Pain MILD(1-3)/Fever >100.5/CHAPA Albuterol 2.5 mg 01/27/20 17:00 Proventil IH Q4HRT PRN Shortness Of Breath Potassium Chloride/Sodium Chloride 20 meq in 1,000 mls @ 100 mls/hr 01/29/20 17:45 01/29/20 23:34 Ns/Kcl 20meq IV 100 mls/hr DIRECT JAYY Administration Sodium Chloride 1,000 mls @ 50 mls/hr 01/30/20 08:30 Nacl 0.9% 1000 Ml IV 01/31/20 08:29 DIRECT JAYY Ondansetron HCl 4 mg 01/28/20 16:00 01/30/20 12:23 Zofran IV 4 mg Q6H PRN Administration Nausea And Vomiting Polyethylene Glycol 17 gm 01/30/20 14:00 Miralax 3350 PO 02/02/20 08:01 TID JAYY Prochlorperazine Edisylate 5 mg 01/28/20 16:00 01/29/20 23:26 Compazine IV 5 mg Q6H PRN Administration Nausea And Vomiting Sodium Chloride 10 ml 01/27/20 22:00 01/30/20 12:30 Sodium Chloride Flush Syringe 10 Ml IV Not Given BID JAYY Sodium Chloride 10 ml 01/27/20 17:00 Sodium Chloride Flush Syringe 10 Ml IV PRN PRN LINE FLUSH
--- NOTE | 2020-01-30 13:59 | Progress Note ---
Assessment and Plan 70-year-old female with 1. Near complete obstruction at mid transverse colon 2. Multiple nonobstructing ventral hernias 3. Tobacco dependence Obstruction series 01/28/2020 -nonobstructive bowel pattern. There is stool throughout the colon Covid test negative Colonoscopy 01/30/2020 -benign stricture at prior colorectal anastomosis, dilated. Poor prep in the left colon. Severe stenotic lesion in transverse colon, biopsied and tattooed. Plan: 1. clear liquid diet 2. IVF 3. prn nausea and pain control 4. DVT ppx 5. PPI twice daily 6. Discussed colonoscopy results with Dr. Kenny. Stenotic lesion in transverse colon, etiology unknown. Will await pathology results. Possible repeat colonoscopy per GI. Miralax TID. 7. Daily BMP, replace electrolytes as needed 8. KUB in am Patient with complex abdominal surgical history along with history of colonic dysmotility. Patient currently stable, having bowel movements, no abdominal pain. Abdominal exam is benign. Will follow with further recommendations pending patient's clinical course over the next 24 hours. Evaluation and treatment of this patient was during the time of the national and state emergency arising from COVID19 coronavirus pandemic. Treatment and procedures performed meet the current and available best practice and guidelines for patient during the COVID pandemic. Subjective Date of service: 01/30/20 Narrative: Pt seen and examined. c/o nausea, no vomiting. Having BMs. No abdominal pain. No f/c Objective Vital Signs - 12hr 01/30/20 01/30/20 01/30/20 04:50 07:37 09:10 Temperature 98.0 F 98.8 F 98.5 F Pulse Rate 83 81 83 Respiratory 18 18 18 Rate Blood Pressure 123/54 143/61 114/61 O2 Sat by Pulse 95 93 98 Oximetry 01/30/20 01/30/20 01/30/20 10:53 11:15 11:30 Temperature 98.5 F Pulse Rate 87 82 78 Respiratory 20 20 15 Rate Blood Pressure 130/58 112/69 135/60 O2 Sat by Pulse 99 100 96 Oximetry 01/30/20 11:58 Temperature 98.6 F Pulse Rate 89 Respiratory 18 Rate Blood Pressure 140/60 O2 Sat by Pulse 97 Oximetry - General physical appearance Narrative Exam: Gen.: Awake, alert, oriented 3. No apparent distress ENT: Trachea midline. No lymphadenopathy. No scleral icterus or conjunctival pallor CV: S1, S2 present Respiratory: No audible wheezes Abdomen: Soft, nondistended, nontender. No rebound, rigidity, guarding Extremities: No clubbing, cyanosis, edema - Labs 01/28/20 05:20 01/30/20 05:56 Diabetes panel 01/29/20 01/30/20 Range/Units 19:47 05:56 Sodium 141 (137-145) mmol/L Potassium 2.8 L* 3.0 L (3.6-5.0) mmol/L Chloride 100.0 (98-107) mmol/L Carbon Dioxide 30 (22-30) mmol/L BUN 7 (7-17) mg/dL Creatinine 0.5 L (0.6-1.2) mg/dL Glucose 92 (65-100) mg/dL Calcium 7.2 L (8.4-10.2) mg/dL Calcium panel 01/30/20 Range/Units 05:56 Calcium 7.2 L (8.4-10.2) mg/dL Pituitary panel 01/29/20 01/30/20 Range/Units 19:47 05:56 Sodium 141 (137-145) mmol/L Potassium 2.8 L* 3.0 L (3.6-5.0) mmol/L Chloride 100.0 (98-107) mmol/L Carbon Dioxide 30 (22-30) mmol/L BUN 7 (7-17) mg/dL Creatinine 0.5 L (0.6-1.2) mg/dL Glucose 92 (65-100) mg/dL Calcium 7.2 L (8.4-10.2) mg/dL Adrenal panel 01/29/20 01/30/20 Range/Units 19:47 05:56 Sodium 141 (137-145) mmol/L Potassium 2.8 L* 3.0 L (3.6-5.0) mmol/L Chloride 100.0 (98-107) mmol/L Carbon Dioxide 30 (22-30) mmol/L BUN 7 (7-17) mg/dL Creatinine 0.5 L (0.6-1.2) mg/dL Glucose 92 (65-100) mg/dL Calcium 7.2 L (8.4-10.2) mg/dL
[2020-01-30] MEDS: POLYETHYLENE GLYCOL 3350 17 GM POWDER PO SCH ×2 (15:20→20:00)
[2020-01-31] MEDS: POTASSIUM CHLORIDE 10 MEQ 10 MEQ/100 ML BAG IV SCH ×6 (04:06→18:17)
[2020-01-31] MEDS: ACETAMINOPHEN 325 MG TAB PO PRN (04:29)
[2020-01-31] MEDS: ONDANSETRON 4 MG/2 ML INJ IV PRN ×3 (04:30→21:19)
[2020-01-31] MEDS: POLYETHYLENE GLYCOL 3350 17 GM POWDER PO SCH ×4 (05:21→21:20)
[2020-01-31 06:06] LABS: Bacteria,Urine 4+ /HPF (Negative); Bilirubin,Urine NEG (Negative); Blood,Urine NEG (Negative); Color,Urine Red (Yellow); Mucus,Urine FEW /HPF; Protein,Urine <15 mg/dL mg/dL (Negative); Urobilinogen,Urine < 2.0 mg/dL (<2.0)
[2020-01-31 06:27] LABS: Hematocrit 32.2 % (30.3-42.9); Hemoglobin 10.6 gm/dl (10.1-14.3)
[2020-01-31 06:52] LABS: BUN/Creatinine Ratio 15; Blood Urea Nitrogen 6 mg/dL (7-17); Hemolysis Index 2
[2020-01-31] MEDS: NACL 0.9%/KCL 20 MEQ 20 MEQ/1,000 ML BAG IV SCH (07:17)
--- NOTE | 2020-01-31 08:24 | XRay Report ---
XR abdomen 1V ap INDICATION / CLINICAL INFORMATION: bowel obstruction. COMPARISON: 01/28/2020 FINDINGS: There are several loops of mildly dilated gas-filled small bowel throughout the abdomen which may ref lect small bowel obstruction or ileus. No free air is identified. Visualized lung bases are clear. No acute osseous findings. IMPRESSION: Mildly dilated gas-filled small bowel, which may reflect small bowel obstruction or ileus. Signer Name: Durga Torres MD Signed: 01/31/2020 8:20 AM Workstation Name: [email or web address]
[2020-01-31 10:02] LABS: Hematocrit 34.6 % (30.3-42.9); Hemoglobin 11.1 gm/dl (10.1-14.3); Mean Corpuscular HGB Conc 32 % (30-34); Mean Corpuscular Volume 80 fl (79-97); Platelet Count 307 K/mm3 (140-440); Red Blood Count 4.31 M/mm3 (3.65-5.03)
--- NOTE | 2020-01-31 10:03 | Progress Note ---
Assessment and Plan Assessment and plan: --COVID-19 test negative --obstructing colon mass/possible cancer Current Visit: Yes Status: Acute Plan to address problem: Patient was evaluated by surgeon Dr. Powell Possible hemicolectomy on 02/03/2020 --Multiple abdominal hernias; Current Visit: Yes Status: Acute Plan to address problem: Possible hernia repairs at the time of hemicolectomy on Monday --Severe hypokalemia; K;2.8 today Current Visit: Yes Status: Acute Plan to address problem: Replenished with IV KCl 40 mEq, Oral KCl 40 mEq Check magnesium levels, closely monitor electrolytes. --Near complete obstruction of transverse colon 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 Current Visit: Yes Status: Acute Plan to address problem: Symptoms slightly improved, IV fluids Management per GI and surgery GI evaluation noted and appreciated, started clear liquids. Status post colonoscopy 01/30/20 1. Benign colon stricture at approx 15cm from the anus (site of prior colorectal anastamosis) - Adult colonoscope would not pass - Dilated to 13.5mm with a TTS ballon - Upper endoscope advanced through narrowing with ease 2. Poor prep of left colon (solid and liquid stool throughout) 3. Endoscope advance to severe stenotic lesion in transverse colon and could not pass; no significant lumen seen - Concern would be for applecore colon cancer, ischemic colitis (focal), or unknown prior anastamosis - Biopsied lesion - Area marked with 5ml of thalia ink -- Hypertension/moderate control Current Visit: Yes Status: Acute Plan to address problem: Monitor blood pressure every shift, continue medical management --GERD (gastroesophageal reflux disease) Current Visit: Yes Status: Acute Plan to address problem: PPI therapy, supportive care. -- DVT prophylaxis Current Visit: Yes Status: Acute Plan to address problem: SCD to bilateral lower extremities while in bed -- Advance care planning Current Visit: Yes Status: Acute Plan to address problem: Full code --Ongoing tobacco use Current Visit: Yes Status: Acute Smoking cessation, nicotine patch as needed Surgeon Dr. Powell evaluation recommendations noted and appreciated. Will closely monitor the patient and adjust management as needed Brief history 70-year-old female patient with complex abdominal surgical history along with history of colonic dysmotility. 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 Pt will need cancer resection, right jeffrey vs total colectomy. Evaluated and managed by surgeon Dr. Francois, GI Dr. Kenny. Patient's private surgeon Dr. Powell has evaluated the patient extensively today And is planning hemicolectomy, and multiple hernia repairs on 02/03/2020. History Interval history: I seen and examined the patient at the bedside today Patient's chart and medications reviewed Patient feels slightly better Colonoscopy findings reviewed. Patient was also evaluated by surgeon Dr. Evans Wen today Planning colectomy and hernia repair on Monday Hospitalist Physical - Constitutional Vitals: Temp Pulse Resp BP Pulse Ox 99.0 F 84 18 121/50 96 01/31/20 07:11 01/31/20 07:11 01/31/20 07:11 01/31/20 07:11 01/31/20 08:08 General appearance: Present: no acute distress, well-nourished - EENT Eyes: Present: PERRL, EOM intact - Neck Neck: Present: supple, normal ROM - Respiratory Respiratory effort: normal Respiratory: bilateral: diminished, negative: rales, rhonchi, wheezing - Cardiovascular Rhythm: regular Heart Sounds: Present: S1 & S2 - Extremities Extremities: no ischemia, No edema - Abdominal General gastrointestinal: soft, non-tender, non-distended, normal bowel sounds - Integumentary Integumentary: Present: clear, warm - Psychiatric Psychiatric: appropriate mood/affect, cooperative - Neurologic Neurologic: CNII-XII intact, moves all extremities Results - Labs CBC & Chem 7: 01/31/20 09:15 01/31/20 04:35 Labs: Laboratory Last Values WBC 5.0 K/mm3 (4.5-11.0) 01/28/20 05:20 RBC 4.22 M/mm3 (3.65-5.03) 01/28/20 05:20 Hgb 10.6 gm/dl (10.1-14.3) 01/31/20 04:35 Hct 32.2 % (30.3-42.9) 01/31/20 04:35 MCV 81 fl (79-97) 01/28/20 05:20 MCH 27 pg (28-32) L 01/28/20 05:20 MCHC 33 % (30-34) 01/28/20 05:20 RDW 18.7 % (13.2-15.2) H 01/28/20 05:20 Plt Count 330 K/mm3 (140-440) 01/28/20 05:20 Lymph % (Auto) 18.5 % (13.4-35.0) 01/28/20 05:20 Price % (Auto) 14.1 % (0.0-7.3) H 01/28/20 05:20 Eos % (Auto) 0.5 % (0.0-4.3) 01/28/20 05:20 Baso % (Auto) 0.4 % (0.0-1.8) 01/28/20 05:20 Lymph # (Auto) 0.9 K/mm3 (1.2-5.4) L 01/28/20 05:20 Price # (Auto) 0.7 K/mm3 (0.0-0.8) 01/28/20 05:20 Eos # (Auto) 0.0 K/mm3 (0.0-0.4) 01/28/20 05:20 Baso # (Auto) 0.0 K/mm3 (0.0-0.1) 01/28/20 05:20 Seg Neutrophils % 66.5 % (40.0-70.0) 01/28/20 05:20 Seg Neutrophils # 3.3 K/mm3 (1.8-7.7) 01/28/20 05:20 Sodium 138 mmol/L (137-145) 01/31/20 04:35 Potassium 2.8 mmol/L (3.6-5.0) L* 01/31/20 04:35 Chloride 99.1 mmol/L (98-107) 01/31/20 04:35 Carbon Dioxide 27 mmol/L (22-30) 01/31/20 04:35 Anion Gap 15 mmol/L 01/31/20 04:35 BUN 6 mg/dL (7-17) L 01/31/20 04:35 Creatinine 0.4 mg/dL (0.6-1.2) L 01/31/20 04:35 Estimated GFR > 60 ml/min 01/31/20 04:35 BUN/Creatinine Ratio 15 % 01/31/20 04:35 Glucose 93 mg/dL (65-100) 01/31/20 04:35 Lactic Acid 1.30 mmol/L (0.7-2.0) 01/28/20 06:24 Calcium 7.0 mg/dL (8.4-10.2) L 01/31/20 04:35 Magnesium 1.90 mg/dL (1.7-2.3) 01/31/20 04:35 Total Bilirubin 0.20 mg/dL (0.1-1.2) 01/28/20 05:20 AST 11 units/L (5-40) 01/28/20 05:20 ALT 6 units/L (7-56) L 01/28/20 05:20 Alkaline Phosphatase 96 units/L (35-129) 01/28/20 05:20 Total Protein 6.2 g/dL (6.3-8.2) L 01/28/20 05:20 Albumin 3.2 g/dL (3.9-5) L 01/28/20 05:20 Albumin/Globulin Ratio 1.1 % 01/28/20 05:20 Lipase 11 units/L (13-60) L 01/27/20 11:40 Urine Color Red (Yellow) 01/30/20 05:36 Urine Turbidity Cloudy (Clear) 01/30/20 05:36 Urine pH 6.0 (5.0-7.0) 01/30/20 05:36 Ur Specific [place] 1.010 (1.003-1.030) 01/30/20 05:36 Urine Protein <15 mg/dl mg/dL (Negative) 01/30/20 05:36 Urine Glucose (UA) Neg mg/dL (Negative) 01/30/20 05:36 Urine Ketones 20 mg/dL (Negative) 01/30/20 05:36 Urine Blood Neg (Negative) 01/30/20 05:36 Urine Nitrite Neg (Negative) 01/30/20 05:36 Urine Bilirubin Neg (Negative) 01/30/20 05:36 Urine Urobilinogen < 2.0 mg/dL (<2.0) 01/30/20 05:36 Ur Leukocyte Esterase Tr (Negative) 01/30/20 05:36 Urine WBC (Auto) 19.0 /HPF (0.0-6.0) H 01/30/20 05:36 Urine RBC (Auto) 6.0 /HPF (0.0-6.0) 01/30/20 05:36 U Epithel Cells (Auto) 1.0 /HPF (0-13.0) 01/30/20 05:36 Urine Bacteria (Auto) 4+ /HPF (Negative) 01/30/20 05:36 Urine Mucus Few /HPF 01/30/20 05:36 Urine Yeast (Budding) Few /HPF 01/30/20 05:36 Coronavirus (PCR) Negative (Negative) 01/28/20 09:51 Microbiology: Microbiology 01/31/20 04:35 Peripheral/Venous Blood Culture - Preliminary Culture in Progress 01/30/20 23:06 Peripheral/Venous Blood Culture - Preliminary Culture in Progress [place]/IV: Voiding Method Toilet IV Catheter Type [Right INT / Saline Lock Forearm] Active Medications - Current Medications Current Medications: Generic Name Dose Route Start Last Admin Trade Name Freq PRN Reason Stop Dose Admin Acetaminophen 650 mg 01/27/20 17:00 01/31/20 04:29 Tylenol PO 650 mg Q4H PRN Administration Pain MILD(1-3)/Fever >100.5/CHAPA Albuterol 2.5 mg 01/27/20 17:00 Proventil IH Q4HRT PRN Shortness Of Breath Potassium Chloride/Sodium Chloride 20 meq in 1,000 mls @ 100 mls/hr 01/29/20 17:45 01/31/20 07:17 Ns/Kcl 20meq IV 100 mls/hr DIRECT JAYY Administration Potassium Chloride 10 meq in 100 mls @ 100 mls/hr 01/31/20 10:00 Kcl 10meq/100ml IV 01/31/20 13:59 Q1H JAYY Ondansetron HCl 4 mg 01/28/20 16:00 01/31/20 04:30 Zofran IV 4 mg Q6H PRN Administration Nausea And Vomiting Polyethylene Glycol 17 gm 01/30/20 14:00 01/31/20 05:21 Miralax 3350 PO 02/02/20 08:01 17 gm TID JAYY Administration Potassium Chloride 40 meq 01/31/20 09:57 K-Dur PO 01/31/20 09:58 ONCE ONE Prochlorperazine Edisylate 5 mg 01/28/20 16:00 01/29/20 23:26 Compazine IV 5 mg Q6H PRN Administration Nausea And Vomiting Sodium Chloride 10 ml 01/27/20 22:00 01/30/20 22:00 Sodium Chloride Flush Syringe 10 Ml IV Not Given BID JAYY Sodium Chloride 10 ml 01/27/20 17:00 Sodium Chloride Flush Syringe 10 Ml IV PRN PRN LINE FLUSH Nutrition/Malnutrition Assess - Dietary Evaluation Nutrition/Malnutrition Findings: Nutrition Notes Start: 01/30/20 13:52 Freq: Status: Active Protocol: Document 01/30/20 13:52 AL (Rec: 01/30/20 14:13 AL [id number]) Co-Sign 01/30/20 13:52 MK Nutrition Notes Need for Assessment generated from: MD Order Initial or Follow up Assessment Current Diagnosis Hypertension Other Pertinent Diagnosis large bowel obstruction, chronic hypokalemia, partial colectomy, GERD Current Diet Clear Liquid Labs/Tests K 3 Pertinent Medications KCl 10 mEq Zofran Height 5 ft 7 in Weight 72.4 kg Usual Body Weight 77.7 kg [place] Body Weight (kg) 61.36 BMI 25.0 Intake Prior to Admission Fair Weight change and time frame 7% wt loss in 1 week. Weight Status Appropriate Subjective/Other Information Consult for ONS needs. Patient reports having a poor appetite. Has been consuming 25% of her meals. Reports some nausea this morning. Percent of energy/protein needs met: 9%/6% Burn Absent Trauma Absent GI Symptoms Nausea Current % PO Poor (25-49%) Minimum of two criteria No Interpretation of Weight Loss (severe) >2% in 1 week #1 Nutrition Diagnosis Inadequate oral intake Etiology large bowel obstruction As Evidenced by Signs and Symptoms decreased appetite, nausea, pt on clear liquid diet Is patient on ventilator? No Is Patient Ambulatory and/or Out of Bed Yes REE-([place]-St. Jeor-ambulatory/OOB) [ 1672.619 [id number]] Calculation [facility]ations [facility] Additional Notes Protein Needs: 72-87 g (1-1.2 g/kg) Fluid Needs: 1 mL/kcal Nutrition Intervention Change Diet Order: Diet advancement when medically feasible Add Supplement/Snack (indicate name/kcal Ensure Clear QID /protein ) Provides kCal: 960 Provides Protein (gm) 32 Goal #1 Diet advancement when medically feasible Goal #2 Meet needs as best as possible through clear liquid diet and ONS. Anticipated Discharge Needs: Unable to determine at this time Follow-Up By: 11/16/20 Additional Comments F/U for diet advancement, intakes, ONS tolerance
[2020-01-31] MEDS ORDERED: POTASSIUM CHLORIDE ER 20 MEQ TAB PO SCH (10:30)
--- NOTE | 2020-01-31 10:58 | Progress Note ---
Assessment and Plan 70-year-old female with 1. Near complete obstruction at mid transverse colon 2. Multiple nonobstructing ventral hernias 3. Tobacco dependence 4. COVID negative 5. stricture at rectosigmoid anastamosis Obstruction series 01/28/2020 -nonobstructive bowel pattern. There is stool throughout the colon Colonoscopy 01/30/2020 -benign stricture at prior colorectal anastomosis, dilated. Poor prep in the left colon. Severe stenotic lesion in transverse colon, biopsied and tattooed. KUB 01/30 - mildly dilated small bowel Path transverse colon bx - tubular adenoma with high suspicion for high grade dysplasia Plan: 1. clear liquid diet, may need TPN 2. IVF 3. prn nausea and pain control 4. DVT ppx 5. PPI twice daily 6. bowel regimen 7. Daily BMP, replace electrolytes as needed Patient with complex abdominal surgical history along with history of colonic dysmotility. 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 Pt will need cancer resection, right jeffrey vs total colectomy. Discussed with [facility] and Dr. Powell who was patient's Surgeon at [place]. Dr. Powell will see patient today and make further recommendations. Plan discussed with patient and she is agreeable to have her surgical care transferred to Dr. Powell. Daughter Marilynn updated. Evaluation and treatment of this patient was during the time of the national and state emergency arising from COVID19 coronavirus pandemic. Treatment and procedures performed meet the current and available best practice and guidelines for patient during the COVID pandemic. Subjective Date of service: 01/31/20 Narrative: Pt seen and examined. c/o abdominal discomfort in LLQ. Moderate nausea but no vomiting. Passing flatus and had a BM. Has not asked for pain or antinausea medication since yesterday. States zofran helps with nausea and she sometimes has to take it at home once a week for similar symptoms. Tolerated clears overnight. Tm 101.3. Objective Vital Signs - 12hr 01/30/20 01/31/20 01/31/20 23:22 06:05 07:11 Temperature 99.7 F H 98.4 F 99.0 F Pulse Rate 92 H 82 84 Respiratory 18 18 18 Rate Blood Pressure 140/65 139/54 121/50 O2 Sat by Pulse 91 93 94 Oximetry 11/13/20 08:08 Temperature Pulse Rate Respiratory Rate Blood Pressure O2 Sat by Pulse 96 Oximetry - General physical appearance Narrative Exam: Gen; AAOx3. NAD CV: S1, S2+ Resp: even and unlabored Abd: soft, mildly distended, mild discomfort on palpation of LLQ/suprapubic region. No r/r/g Ext: no c/c/e - Labs 01/31/20 09:15 01/31/20 04:35 Diabetes panel 01/31/20 Range/Units 04:35 Sodium 138 (137-145) mmol/L Potassium 2.8 L* (3.6-5.0) mmol/L Chloride 99.1 (98-107) mmol/L Carbon Dioxide 27 (22-30) mmol/L BUN 6 L (7-17) mg/dL Creatinine 0.4 L (0.6-1.2) mg/dL Glucose 93 (65-100) mg/dL Calcium 7.0 L (8.4-10.2) mg/dL Calcium panel 01/31/20 Range/Units 04:35 Calcium 7.0 L (8.4-10.2) mg/dL Pituitary panel 01/31/20 Range/Units 04:35 Sodium 138 (137-145) mmol/L Potassium 2.8 L* (3.6-5.0) mmol/L Chloride 99.1 (98-107) mmol/L Carbon Dioxide 27 (22-30) mmol/L BUN 6 L (7-17) mg/dL Creatinine 0.4 L (0.6-1.2) mg/dL Glucose 93 (65-100) mg/dL Calcium 7.0 L (8.4-10.2) mg/dL Adrenal panel 01/31/20 Range/Units 04:35 Sodium 138 (137-145) mmol/L Potassium 2.8 L* (3.6-5.0) mmol/L Chloride 99.1 (98-107) mmol/L Carbon Dioxide 27 (22-30) mmol/L BUN 6 L (7-17) mg/dL Creatinine 0.4 L (0.6-1.2) mg/dL Glucose 93 (65-100) mg/dL Calcium 7.0 L (8.4-10.2) mg/dL
[2020-01-31 11:23] LABS: Band Neutrophils # (Manual) 1.3 K/mm3; Basophils % (Manual) 0 % (0.0-1.8); Eosinophils % (Manual) 0 % (0.0-4.3); Myelocytes # (Manual) 0.1 K/mm3; Total Cells Counted 100
[2020-01-31 11:24] LABS: Hypochromasia 1+; Platelet Estimate Consistent w Auto
[2020-01-31] MEDS ORDERED: SODIUM CHLORIDE 0.9% 1000 ML 1,000 ML IV ONE (14:00)
--- NOTE | 2020-01-31 15:25 | Gastroenterology Progress Note ---
Assessment and Plan - Patient Problems (1) Large bowel obstruction Current Visit: Yes Status: Acute Plan to address problem: - Colon stricture x 2 - 15cm from anus bland stenosis at anastamotic site of colon resection (diverticular disease) - Dilated to 13.5mm with balloon 01/29, and upper endoscope could pass - Likely amenable to further dilation (though colon stent would be preferable) - Transverse colon stricture - Biopsy TVA with high grade dysplasia, highly concerning for underlying malignancy - Would not be possible to stent a lesion this high in the colon, and will need surgical resection - Will defer to surgery whether to perform subtotal colectomy with ileostomy (temporary) versus R hemicolectomy with ileostomy (temporary) - Prior to re-anastamosis, will need resolution of rectosigmoid stricture with either serial dilation versus colon stent - Will start TPN as suspect will be NPO for some period of time based on bowel obstruction Subjective Date of service: 01/31/20 Principal diagnosis: Abnormal CT Colon Interval history: The patient has had nausea today, and a fever yesterday but not today. However, she is now passing flatus (but not stool). She has had no emesis despite clear liquid diet. Objective - Constitutional Vitals: Temp Pulse Resp BP Pulse Ox 99.0 F 84 18 121/50 96 01/31/20 07:11 01/31/20 07:11 01/31/20 07:11 01/31/20 07:11 01/31/20 08:08 General appearance: no acute distress - Respiratory Respiratory effort: normal Respiratory: bilateral: wheezing - Cardiovascular Rhythm: regular Heart Sounds: Present: S1 & S2 - Gastrointestinal General gastrointestinal: Present: soft, tender (Mild and diffuse), distended (Minimal distention, and no change from yesterday) - Labs CBC & Chem 7: 01/31/20 09:15 01/31/20 04:35 Labs: Laboratory Results - last 24 hr 01/30/20 01/31/20 01/31/20 05:36 04:35 04:35 WBC RBC Hgb 10.6 Hct 32.2 MCV MCH MCHC RDW Plt Count Add Manual Diff Total Counted Seg Neuts % (Manual) Band Neutrophils % Lymphocytes % (Manual) Reactive Lymphs % (Man) Monocytes % (Manual) Eosinophils % (Manual) Basophils % (Manual) Metamyelocytes % Myelocytes % Promyelocytes % Blast Cells % Nucleated RBC % Seg Neutrophils # Man Band Neutrophils # Lymphocytes # (Manual) Abs React Lymphs (Man) Monocytes # (Manual) Eosinophils # (Manual) Basophils # (Manual) Metamyelocytes # Myelocytes # Promyelocytes # Blast Cells # WBC Morphology Hypersegmented Neuts Hyposegmented Neuts Hypogranular Neuts Smudge Cells Toxic Granulation Toxic Vacuolation Dohle Bodies Pelger-Huet Anomaly Krystal Rods Platelet Estimate Clumped Platelets Plt Clumps, EDTA Large Platelets Giant Platelets Platelet Satelliting Plt Morphology Comment RBC Morphology Dimorphic RBCs Polychromasia Hypochromasia Poikilocytosis Anisocytosis Microcytosis Macrocytosis Spherocytes Pappenheimer Bodies Sickle Cells Target Cells Tear Drop Cells Ovalocytes Helmet Cells [place] Bodies [place] Rings Liliam Cells Bite Cells Crenated Cell Elliptocytes Acanthocytes (Spur) Rouleaux Hemoglobin C Crystals Schistocytes Malaria parasites [place] Bodies Hem Pathologist Commnt Sodium 138 Potassium 2.8 L* Chloride 99.1 Carbon Dioxide 27 Anion Gap 15 BUN 6 L Creatinine 0.4 L Estimated GFR > 60 BUN/Creatinine Ratio 15 Glucose 93 Calcium 7.0 L Magnesium 1.90 Urine Color Red Urine Turbidity Cloudy Urine pH 6.0 Ur Specific [place] 1.010 Urine Protein <15 mg/dl Urine Glucose (UA) Neg Urine Ketones 20 Urine Blood Neg Urine Nitrite Neg Urine Bilirubin Neg Urine Urobilinogen < 2.0 Ur Leukocyte Esterase Tr Urine WBC (Auto) 19.0 H Urine RBC (Auto) 6.0 U Epithel Cells (Auto) 1.0 Urine Bacteria (Auto) 4+ Urine Mucus Few Urine Yeast (Budding) Few 01/31/20 09:15 WBC 4.7 RBC 4.31 Hgb 11.1 Hct 34.6 MCV 80 MCH 26 L MCHC 32 RDW 19.0 H Plt Count 307 Add Manual Diff Complete Total Counted 100 Seg Neuts % (Manual) 50.0 Band Neutrophils % 27.0 Lymphocytes % (Manual) 13.0 L Reactive Lymphs % (Man) 0 Monocytes % (Manual) 5.0 Eosinophils % (Manual) 0 Basophils % (Manual) 0 Metamyelocytes % 3.0 Myelocytes % 2.0 Promyelocytes % 0 Blast Cells % 0 Nucleated RBC % Not Reportable Seg Neutrophils # Man 2.4 Band Neutrophils # 1.3 Lymphocytes # (Manual) 0.6 L Abs React Lymphs (Man) 0.0 Monocytes # (Manual) 0.2 Eosinophils # (Manual) 0.0 Basophils # (Manual) 0.0 Metamyelocytes # 0.1 Myelocytes # 0.1 Promyelocytes # 0.0 Blast Cells # 0.0 WBC Morphology Not Reportable Hypersegmented Neuts Not Reportable Hyposegmented Neuts Not Reportable Hypogranular Neuts Not Reportable Smudge Cells Not Reportable Toxic Granulation Not Reportable Toxic Vacuolation Not Reportable Dohle Bodies Not Reportable Pelger-Huet Anomaly Not Reportable Krystal Rods Not Reportable Platelet Estimate Consistent w auto Clumped Platelets Not Reportable Plt Clumps, EDTA Not Reportable Large Platelets Not Reportable Giant Platelets Not Reportable Platelet Satelliting Not Reportable Plt Morphology Comment Not Reportable RBC Morphology Not Reportable Dimorphic RBCs Not Reportable Polychromasia Few Hypochromasia 1+ Poikilocytosis Not Reportable Anisocytosis Not Reportable Microcytosis Not Reportable Macrocytosis Not Reportable Spherocytes Not Reportable Pappenheimer Bodies Not Reportable Sickle Cells Not Reportable Target Cells Not Reportable Tear Drop Cells Not Reportable Ovalocytes Not Reportable Helmet Cells Not Reportable [place] Bodies Not Reportable [place] Rings Not Reportable Liliam Cells Not Reportable Bite Cells Not Reportable Crenated Cell Not Reportable Elliptocytes Not Reportable Acanthocytes (Spur) Not Reportable Rouleaux Not Reportable Hemoglobin C Crystals Not Reportable Schistocytes Not Reportable Malaria parasites Not Reportable [place]fa Bodies Not Reportable Hem Pathologist Commnt No Sodium Potassium Chloride Carbon Dioxide Anion Gap BUN Creatinine Estimated GFR BUN/Creatinine Ratio Glucose Calcium Magnesium Urine Color Urine Turbidity Urine pH Ur Specific [place] Urine Protein Urine Glucose (UA) Urine Ketones Urine Blood Urine Nitrite Urine Bilirubin Urine Urobilinogen Ur Leukocyte Esterase Urine WBC (Auto) Urine RBC (Auto) U Epithel Cells (Auto) Urine Bacteria (Auto) Urine Mucus Urine Yeast (Budding)
[2020-01-31] MEDS ORDERED: ONDANSETRON 4 MG/2 ML INJ IV PRN (17:00)
--- NOTE | 2020-01-31 17:10 | Consultation ---
History of Present Illness Consult date: 01/31/20 Reason for consult: abdominal pain - History of present illness History of present illness: Pt well-known to me from multiple surgeries between 2018 and 2019 for perf tics/takedown colostomy/hernia repair/etc. This case d/w Kai Kenny and Priscila in detail. Short version is obstructing transverse colon mass that is likely cancer (path noted) along with rectosigmoid stricture that Dr. Kenny feels that he can manage non-operatively with dilation/etc. Pt also has 4 incisional hernias (left side hernia with SB incarcerated but not causing obstruction) which we will repair at same time as colon operation. Past History Past Medical History: cancer, GERD, hypertension Past Surgical History: hysterectomy, bowel surgery (colostomy/re-anastamosis (tics), parastomal hernia repair, wound infection debridement) Social history: , smoking. denies: alcohol abuse, prescription drug abuse Family history: hypertension Medications and Allergies Allergies Allergy/AdvReac Type Severity Reaction Status Date / Time No Known Allergies Allergy Unverified 01/27/20 11:26 Active Meds: Active Medications Acetaminophen (Tylenol) 650 mg PO Q4H PRN PRN Reason: Pain MILD(1-3)/Fever >100.5/CHAPA Last Admin: 01/31/20 04:29 Dose: 650 mg Documented by: Albuterol (Proventil) 2.5 mg IH Q4HRT PRN PRN Reason: Shortness Of Breath Hydromorphone HCl (Dilaudid) 1 mg IV Q4H PRN PRN Reason: Pain , Severe (7-10) Potassium Chloride/Sodium Chloride (Ns/Kcl 20meq) 20 meq in 1,000 mls @ 100 mls/hr IV DIRECT JAYY Last Admin: 01/31/20 07:17 Dose: 100 mls/hr Documented by: Sodium Chloride (Nacl 0.9% 1000 Ml) 1,000 mls @ 42 mls/hr IV ONCE ONE Stop: 02/01/20 13:48 Last Admin: 01/31/20 14:18 Dose: 42 mls/hr Documented by: Ondansetron HCl (Zofran) 4 mg IV Q8H PRN PRN Reason: Nausea And Vomiting Pantoprazole Sodium (Protonix) 40 mg IV QDAY JAYY Polyethylene Glycol (Miralax 3350) 17 gm PO TID [facility] Stop: 02/02/20 08:01 Last Admin: 01/31/20 14:10 Dose: Not Given Documented by: Prochlorperazine Edisylate (Compazine) 5 mg IV Q6H PRN PRN Reason: Nausea And Vomiting Last Admin: 01/29/20 23:26 Dose: 5 mg Documented by: Sodium Chloride (Sodium Chloride Flush Syringe 10 Ml) 10 ml IV BID [facility] Last Admin: 01/31/20 13:11 Dose: Not Given Documented by: Sodium Chloride (Sodium Chloride Flush Syringe 10 Ml) 10 ml IV PRN PRN PRN Reason: LINE FLUSH Exam Vital Signs Temp Pulse Resp BP Pulse Ox 97.7 F 87 18 145/55 100 01/27/20 11:19 01/27/20 11:19 01/27/20 11:19 01/27/20 11:19 01/27/20 11:19 - General physical appearance Positive: well developed, well nourished, moderate distress - Abdomen Abdomen: Present: soft, tender, bowel sounds hypoactive, distended, other (+at least 3 hernias (red) along midline incision; +left abd hernia (non-red) with bulge approx [id number]). Absent: bowel sounds normal Results - Labs 01/31/20 09:15 01/31/20 04:35 Abnormal lab results 01/30/20 01/31/20 01/31/20 Range/Units 05:36 04:35 09:15 MCH 26 L (28-32) pg RDW 19.0 H (13.2-15.2) % Lymphocytes % (Manual) 13.0 L (13.4-35.0) % Lymphocytes # (Manual) 0.6 L (1.2-5.4) K/mm3 Potassium 2.8 L* (3.6-5.0) mmol/L BUN 6 L (7-17) mg/dL Creatinine 0.4 L (0.6-1.2) mg/dL Calcium 7.0 L (8.4-10.2) mg/dL Urine WBC (Auto) 19.0 H (0.0-6.0) /HPF Diabetes panel 01/31/20 Range/Units 04:35 Sodium 138 (137-145) mmol/L Potassium 2.8 L* (3.6-5.0) mmol/L Chloride 99.1 (98-107) mmol/L Carbon Dioxide 27 (22-30) mmol/L BUN 6 L (7-17) mg/dL Creatinine 0.4 L (0.6-1.2) mg/dL Glucose 93 (65-100) mg/dL Calcium 7.0 L (8.4-10.2) mg/dL Calcium panel 01/31/20 Range/Units 04:35 Calcium 7.0 L (8.4-10.2) mg/dL Pituitary panel 01/31/20 Range/Units 04:35 Sodium 138 (137-145) mmol/L Potassium 2.8 L* (3.6-5.0) mmol/L Chloride 99.1 (98-107) mmol/L Carbon Dioxide 27 (22-30) mmol/L BUN 6 L (7-17) mg/dL Creatinine 0.4 L (0.6-1.2) mg/dL Glucose 93 (65-100) mg/dL Calcium 7.0 L (8.4-10.2) mg/dL Adrenal panel 01/31/20 Range/Units 04:35 Sodium 138 (137-145) mmol/L Potassium 2.8 L* (3.6-5.0) mmol/L Chloride 99.1 (98-107) mmol/L Carbon Dioxide 27 (22-30) mmol/L BUN 6 L (7-17) mg/dL Creatinine 0.4 L (0.6-1.2) mg/dL Glucose 93 (65-100) mg/dL Calcium 7.0 L (8.4-10.2) mg/dL Assessment and Plan 1. Obstructing colon mass (suspect cancer)--- Extended Right Hemicolectomy with protective ileostomy on Monday at 1200hrs 2. 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 Multiple abd wall hernias-- repair at time of colectomy 4. tob abuse--- contributing factor to pt's poor tissue quality/ recurrent hernias/ stricture; pt swears that she will quit now. Does not want nicotine patch now 5. GERD/ restless leg-- start approp meds 6. Hypokalemia--- will need potassium of at least 3.o on Monday AM to proceed with surgery Risks of surgery d/w pt (see consent)
[2020-01-31] MEDS ORDERED: PANTOPRAZOLE 40 MG INJ IV SCH (18:00)
[2020-01-31] MEDS: PANTOPRAZOLE 40 MG INJ IV SCH (18:17)
[2020-01-31] MEDS: HYDROmorphone 1 MG/1 ML INJ IV PRN (21:19)
[2020-02-01] MEDS: rOPINIRole 0.25 MG TAB PO SCH ×2 (01:33→22:45)
[2020-02-01] MEDS: D5W/0.45% NACL/KCL 10 MEQ 10 MEQ/1,000 ML BAG IV SCH ×2 (04:10→16:36)
[2020-02-01] MEDS: METOCLOPRAMIDE 10 MG/2 ML INJ IV PRN (04:37)
[2020-02-01] MEDS: HYDROmorphone 1 MG/1 ML INJ IV PRN ×2 (04:37→15:20)
[2020-02-01 06:39] LABS: Blood Urea Nitrogen 6 mg/dL (7-17); Calcium 6.7 mg/dL (8.4-10.2); Hemolysis Index 0
[2020-02-01 06:40] LABS: BUN/Creatinine Ratio 15
[2020-02-01] MEDS: POLYETHYLENE GLYCOL 3350 17 GM POWDER PO SCH ×2 (08:30→15:27)
[2020-02-01] MEDS: PANTOPRAZOLE 40 MG INJ IV SCH (11:21)
[2020-02-01] MEDS: ONDANSETRON 4 MG/2 ML INJ IV PRN (15:20)
--- NOTE | 2020-02-01 16:42 | Gastroenterology Progress Note ---
Assessment and Plan - Patient Problems (1) Large bowel obstruction Current Visit: Yes Status: Acute Plan to address problem: - Colon stricture x 2 - 15cm from anus bland stenosis at anastamotic site of colon resection (diverticular disease) - Dilated to 13.5mm with balloon 01/29, and upper endoscope could pass - Likely amenable to further dilation (though colon stent would be preferable) - Transverse colon stricture - Biopsy TVA with high grade dysplasia, highly concerning for underlying malignancy - Would not be possible to stent a lesion this high in the colon, and will need surgical resection - patient planned for extended hemicolectomy with protective ileostomy on Monday with Dr. Powell. - will sign off. please call with questions. Subjective Date of service: 02/01/20 Principal diagnosis: Abnormal CT Colon Interval history: Patient reports abdomen less distended, feels comfortable. Passing gas but no stool. No nausea/vomiting. Objective - Constitutional Vitals: Temp Pulse Resp BP Pulse Ox 98.6 F 89 18 126/75 95 02/01/20 16:05 02/01/20 16:05 02/01/20 16:05 02/01/20 16:05 02/01/20 16:05 General appearance: no acute distress - EENT ENT: hearing intact - Neck Neck: supple - Respiratory Respiratory effort: normal - Cardiovascular Rhythm: regular Heart Sounds: Present: S1 & S2 - Gastrointestinal General gastrointestinal: Present: soft, non-tender, distended - Neurologic Neurological: alert and oriented x3 - Labs CBC & Chem 7: 01/31/20 09:15 02/01/20 05:43 Labs: Laboratory Results - last 24 hr 02/01/20 02/01/20 05:43 05:43 Sodium 135 L Potassium 2.8 L* Chloride 99.4 Carbon Dioxide 26 Anion Gap 12 BUN 6 L Creatinine 0.4 L Estimated GFR > 60 BUN/Creatinine Ratio 15 Glucose 120 H Calcium 6.7 L Phosphorus 0.80 L* Magnesium 1.70
--- NOTE | 2020-02-01 17:04 | Progress Note ---
Assessment and Plan Assessment and Plan --COVID-19 test negative --obstructing colon mass/possible cancer Current Visit: Yes Status: Acute Plan to address problem: Patient was evaluated by surgeon Dr. Powell Possible hemicolectomy on 02/03/2020 --Multiple abdominal hernias; Current Visit: Yes Status: Acute Plan to address problem: Possible hernia repairs at the time of hemicolectomy on Monday --Severe hypokalemia; K;2.8 today Current Visit: Yes Status: Acute Plan to address problem: Supplemented --Near complete obstruction of transverse colon 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 Current Visit: Yes Status: Acute Plan to address problem: Symptoms slightly improved, IV fluids Management per GI and surgery GI evaluation noted and appreciated, started clear liquids. Status post colonoscopy 01/30/20 1. Benign colon stricture at approx 15cm from the anus (site of prior colorectal anastamosis) - Adult colonoscope would not pass - Dilated to 13.5mm with a TTS ballon - Upper endoscope advanced through narrowing with ease 2. Poor prep of left colon (solid and liquid stool throughout) 3. Endoscope advance to severe stenotic lesion in transverse colon and could not pass; no significant lumen seen - Concern would be for applecore colon cancer, ischemic colitis (focal), or unknown prior anastamosis - Biopsied lesion - Area marked with 5ml of thalia ink -- Hypertension/moderate control Current Visit: Yes Status: Acute Plan to address problem: Monitor blood pressure every shift, continue medical management --GERD (gastroesophageal reflux disease) Current Visit: Yes Status: Acute Plan to address problem: PPI therapy, supportive care.\ --Hypokalemia, supplemented --Hypophosphatemia supplemented --Hypomagnesemia, supplemented -- DVT prophylaxis Current Visit: Yes Status: Acute Plan to address problem: SCD to bilateral lower extremities while in bed -- Advance care planning Current Visit: Yes Status: Acute Plan to address problem: Full code --Ongoing tobacco use Current Visit: Yes Status: Acute Smoking cessation, nicotine patch as needed Surgeon Dr. Powell evaluation recommendations noted and appreciated. Will closely monitor the patient and adjust management as needed Subjective Date of service: 02/01/20 Principal diagnosis: Abnormal CT Colon Interval history: Brief history 70-year-old female patient with complex abdominal surgical history along with history of colonic dysmotility. 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 Pt will need cancer resection, right jeffrey vs total colectomy. Evaluated and managed by surgeon Dr. Francois, GI Dr. Kenny. Patient's private surgeon Dr. Powell has evaluated the patient extensively today And is planning hemicolectomy, and multiple hernia repairs on 02/03/2020. I seen and examined the patient at the bedside today Patient's chart and medications reviewed Patient feels slightly better Colonoscopy findings reviewed. Patient was also evaluated by surgeon Dr. Evans Wen Planning colectomy and hernia repair on Monday Abdominal pain better Objective - Constitutional Vitals: Vital Signs - 12hr 02/01/20 02/01/20 02/01/20 07:32 11:04 16:05 Temperature 98.6 F 98.5 F 98.6 F Pulse Rate 83 81 89 Respiratory 18 18 18 Rate Blood Pressure 127/54 114/51 126/75 O2 Sat by Pulse 96 98 95 Oximetry General appearance: Present: no acute distress, well-nourished - EENT Eyes: PERRL, EOM intact ENT: hearing intact, clear oral mucosa Ears: bilateral: normal - Neck Neck: supple, normal ROM - Respiratory Respiratory effort: normal Respiratory: bilateral: CTA - Breasts Breasts: normal - Cardiovascular Heart rate: 78 Rhythm: regular Heart Sounds: Present: S1 & S2. Absent: gallop, rub Extremities: pulses intact, No edema, normal color, Full ROM - Gastrointestinal General gastrointestinal: Present: soft, non-tender, non-distended, normal bowel sounds - Genitourinary Female genitourinary: normal - Integumentary Integumentary: clear, warm, dry - Musculoskeletal Musculoskeletal: 1, strength equal bilaterally - Neurologic Neurologic: moves all extremities - Psychiatric Psychiatric: memory intact, appropriate mood/affect, intact judgment & insight - Labs CBC & Chem 7: 01/31/20 09:15 02/02/20 07:06 Labs: Abnormal lab results 02/01/20 02/01/20 Range/Units 05:43 05:43 Sodium 135 L (137-145) mmol/L Potassium 2.8 L* (3.6-5.0) mmol/L BUN 6 L (7-17) mg/dL Creatinine 0.4 L (0.6-1.2) mg/dL Glucose 120 H (65-100) mg/dL Calcium 6.7 L (8.4-10.2) mg/dL Phosphorus 0.80 L* (2.5-4.5) mg/dL
[2020-02-02] MEDS: POLYETHYLENE GLYCOL 3350 17 GM POWDER PO SCH ×2 (03:34→09:25)
[2020-02-02] MEDS: ONDANSETRON 4 MG/2 ML INJ IV PRN (07:21)
[2020-02-02 07:40] LABS: Blood Urea Nitrogen 4 mg/dL (7-17); Calcium 6.6 mg/dL (8.4-10.2); Hemolysis Index 12
[2020-02-02 07:43] LABS: BUN/Creatinine Ratio 10
[2020-02-02] MEDS: D5W/0.45% NACL/KCL 10 MEQ 10 MEQ/1,000 ML BAG IV SCH (09:25)
[2020-02-02] MEDS: PANTOPRAZOLE 40 MG INJ IV SCH (09:39)
[2020-02-02] MEDS ORDERED: MAGNESIUM SULFATE 2 GM/50 ML BAG IV ONE (13:30)
[2020-02-02] MEDS ORDERED: POTASSIUM PHOSPHATE 40 MMOL in SODIUM CHLORIDE 0.9% 500 ML 500 ML IV ONE (14:00)
[2020-02-02] MEDS: HYDROmorphone 1 MG/1 ML INJ IV PRN (14:01)
--- NOTE | 2020-02-02 15:55 | Progress Note ---
Assessment and Plan Assessment and Plan --COVID-19 test negative --obstructing colon mass/possible cancer Current Visit: Yes Status: Acute Plan to address problem: Patient was evaluated by surgeon Dr. Powell Possible hemicolectomy on 02/03/2020 --Multiple abdominal hernias; Current Visit: Yes Status: Acute Plan to address problem: Possible hernia repairs at the time of hemicolectomy on Monday --Severe hypokalemia; K;2.8 today Current Visit: Yes Status: Acute Plan to address problem: Supplemented --Near complete obstruction of transverse colon 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 Current Visit: Yes Status: Acute Plan to address problem: Symptoms slightly improved, IV fluids Management per GI and surgery GI evaluation noted and appreciated, started clear liquids. Status post colonoscopy 01/30/20 1. Benign colon stricture at approx 15cm from the anus (site of prior colorectal anastamosis) - Adult colonoscope would not pass - Dilated to 13.5mm with a TTS ballon - Upper endoscope advanced through narrowing with ease 2. Poor prep of left colon (solid and liquid stool throughout) 3. Endoscope advance to severe stenotic lesion in transverse colon and could not pass; no significant lumen seen - Concern would be for applecore colon cancer, ischemic colitis (focal), or unknown prior anastamosis - Biopsied lesion - Area marked with 5ml of thalia ink -- Hypertension/moderate control Current Visit: Yes Status: Acute Plan to address problem: Monitor blood pressure every shift, continue medical management --GERD (gastroesophageal reflux disease) Current Visit: Yes Status: Acute Plan to address problem: PPI therapy, supportive care.\ --Hypokalemia, supplemented --Hypophosphatemia supplemented --Hypomagnesemia, supplemented -- DVT prophylaxis Current Visit: Yes Status: Acute Plan to address problem: SCD to bilateral lower extremities while in bed -- Advance care planning Current Visit: Yes Status: Acute Plan to address problem: Full code --Ongoing tobacco use Current Visit: Yes Status: Acute Smoking cessation, nicotine patch as needed Surgeon Dr. Powell evaluation recommendations noted and appreciated. Will closely monitor the patient and adjust management as needed Subjective Date of service: 02/02/20 Principal diagnosis: Abnormal CT Colon Interval history: Brief history 70-year-old female patient with complex abdominal surgical history along with history of colonic dysmotility. 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 Pt will need cancer resection, right jeffrey vs total colectomy. Evaluated and managed by surgeon Dr. Francois, GI Dr. Kenny. Patient's private surgeon Dr. Powell has evaluated the patient extensively today And is planning hemicolectomy, and multiple hernia repairs on 02/03/2020. I seen and examined the patient at the bedside today Patient's chart and medications reviewed Patient feels slightly better Colonoscopy findings reviewed. Patient was also evaluated by surgeon Dr. Evans Wen Planning colectomy and hernia repair on Monday Abdominal pain better 02/02/2020 Patient has low potassium and low phosphorus levels and low magnesium levels Supplemented Objective - Constitutional Vitals: Vital Signs - 12hr 02/02/20 02/02/20 04:52 07:36 Temperature 98.4 F 99.1 F Pulse Rate 88 81 Respiratory 20 18 Rate Blood Pressure 120/56 123/51 O2 Sat by Pulse 91 94 Oximetry General appearance: Present: no acute distress, well-nourished - EENT Eyes: PERRL, EOM intact ENT: hearing intact, clear oral mucosa Ears: bilateral: normal - Neck Neck: supple, normal ROM - Respiratory Respiratory effort: normal Respiratory: bilateral: CTA - Breasts Breasts: normal - Cardiovascular Heart rate: 78 Rhythm: regular Heart Sounds: Present: S1 & S2. Absent: gallop, rub Extremities: no ischemia, pulses intact, No edema, normal color, Full ROM - Gastrointestinal General gastrointestinal: Present: soft, non-tender, non-distended, normal bowel sounds - Genitourinary Female genitourinary: normal - Integumentary Integumentary: clear, warm, dry - Musculoskeletal Musculoskeletal: 1, strength equal bilaterally - Neurologic Neurologic: moves all extremities - Psychiatric Psychiatric: memory intact, appropriate mood/affect, intact judgment & insight - Labs CBC & Chem 7: 01/31/20 09:15 02/02/20 07:06 Labs: Abnormal lab results 02/02/20 Range/Units 07:06 Sodium 135 L (137-145) mmol/L Potassium 3.0 L (3.6-5.0) mmol/L BUN 4 L (7-17) mg/dL Creatinine 0.4 L (0.6-1.2) mg/dL Calcium 6.6 L (8.4-10.2) mg/dL Phosphorus 1.00 L D (2.5-4.5) mg/dL Magnesium 1.60 L (1.7-2.3) mg/dL
[2020-02-02] MEDS ORDERED: TOTAL PARENTERAL NUTRITION 2,000 ML IV SCH (20:00)
[2020-02-02] MEDS: rOPINIRole 0.25 MG TAB PO SCH (22:01)
[2020-02-03] MEDS: HYDROmorphone 1 MG/1 ML INJ IV PRN ×7 (01:25→21:43)
[2020-02-03] MEDS: ONDANSETRON 4 MG/2 ML INJ IV PRN ×2 (01:25→17:56)
[2020-02-03 07:32] LABS: Alanine Aminotransferase 5 units/L (7-56); Albumin 2.9 g/dL (3.9-5); Blood Urea Nitrogen 5 mg/dL (7-17); Calcium 6.4 mg/dL (8.4-10.2); Hemolysis Index 3
[2020-02-03 07:45] LABS: BUN/Creatinine Ratio 13
--- NOTE | 2020-02-03 08:23 | Anesthesia Consultation ---
Anesthesia Consult and Med Hx Date of service: 02/03/20 - Airway Anesthetic Teeth Evaluation: Poor ROM Head & Neck: Adequate Mental/Hyoid Distance: Adequate Mallampati Class: Class II Intubation Access Assessment: Probably Good - Pulmonary Exam CTA: Yes - Pre-Operative Health Status ASA Pre-Surgery Classification: ASA3 Proposed Anesthetic Plan: General - Pulmonary Hx Smoking: Yes (1/2 PPD) Hx Asthma: No Hx Respiratory Symptoms: No SOB: No COPD: No Home Oxygen Therapy: No Hx Pneumonia: No Hx Sleep Apnea: No - Cardiovascular System Hx Hypertension: Yes Hx Coronary Artery Disease: No Hx Heart Attack/AMI: No Hx Angina: No Hx Percutaneous Transluminal Coronary Angioplasty (PTCA): No Hx Cardia Arrhythmia: No Hx Pacemaker: No Hx Internal Defibrillator: No Hx Valvular Heart Disease: No Hx Heart Murmur: No Hx Peripheral Vascular Disease: Yes - Central Nervous System Hx Neuromuscular Disorder: No (Fx pelvic bone/T11) Hx Seizures: No CVA: No Hx Back Pain: No Hx Psychiatric Problems: Yes (Restless leg syndrome) - Gastrointestinal Hx Ulcer: No Hx Gastroesophageal Reflux Disease: Yes - Endocrine Hx Renal Disease: No (incontinence ) Hx End Stage Renal Disease: No Hx Cirrhosis: No Hx Liver Disease: No Hx Insulin Dependent Diabetes: No Hx Non-Insulin Dependent Diabetes: No Hx Thyroid Disease: No Hx Hypothyroidism: No Hx Hyperthyroidism: No - Hematic Hx Anemia: No Hx Sickle Cell Disease: No - Other Systems Hx Alcohol Use: No Hx Substance Use: No Hx Cancer: Yes (Colon and cervical cancer) Hx Obesity: No - Additional Comments Anesthesia Medical History Comments: Patient denied previous anesthesia complications.
--- NOTE | 2020-02-03 08:25 | Anesthesia Day of Surgery ---
Anesthesia Day of Surgery - Day of Surgery Patient Examined: Yes Patient H&P Reviewed: Yes Patient is NPO: Yes Beta Blockers: No Cardiac Clearance: No Pulmonary Clearance: No
[2020-02-03] MEDS ORDERED: MIDAZOLAM 2 MG/2 ML INJ IV ONE (11:36)
[2020-02-03] MEDS ORDERED: ONDANSETRON 4 MG/2 ML INJ IV PRN ×2 (11:38→15:20)
[2020-02-03] MEDS ORDERED: HYDROmorphone 1 MG/1 ML INJ IV PRN (11:38)
[2020-02-03] MEDS ORDERED: HEPARIN 5,000 UNIT/1 ML VIAL SUB-Q NR (11:45)
[2020-02-03] MEDS ORDERED: ROCURONIUM 50 MG/5 ML INJ IV ONE ×2 (11:46→13:49)
[2020-02-03] MEDS ORDERED: propofoL 200 MG/20 ML VIAL IV ONE (11:46)
[2020-02-03] MEDS ORDERED: LIDOCAINE MPF (2%) 20 MG/1 ML VIAL 5 ML ONE (11:46)
[2020-02-03] MEDS: LACTATED RINGERS 1,000 ML IV SCH ×2 (11:50→21:38)
--- NOTE | 2020-02-03 11:51 | Progress Note ---
Assessment and Plan Potassium corrected over weekend. CBC noted Pt passing flatus but no stool over weekend. Minimal pain. Situation d/w pt's daughter Marilynn in depth by phone. To OR for Right Hemicolectomy/Multiple hernia repairs Risks rev'd with pt also. Subjective Date of service: 02/03/20 Objective Vital Signs - 12hr 02/03/20 02/03/20 04:30 08:17 Temperature 98.1 F 98.2 F Pulse Rate 82 81 Respiratory 18 16 Rate Blood Pressure 140/62 142/63 O2 Sat by Pulse 99 96 Oximetry - Labs 01/31/20 09:15 02/03/20 06:53 Diabetes panel 02/03/20 Range/Units 06:53 Sodium 133 L (137-145) mmol/L Potassium 3.2 L (3.6-5.0) mmol/L Chloride 96.4 L (98-107) mmol/L Carbon Dioxide 28 (22-30) mmol/L BUN 5 L (7-17) mg/dL Creatinine 0.4 L (0.6-1.2) mg/dL Glucose 95 (65-100) mg/dL Calcium 6.4 L (8.4-10.2) mg/dL AST 9 (5-40) units/L ALT 5 L (7-56) units/L Alkaline Phosphatase 77 (35-129) units/L Total Protein 5.7 L (6.3-8.2) g/dL Albumin 2.9 L (3.9-5) g/dL Calcium panel 02/03/20 Range/Units 06:53 Calcium 6.4 L (8.4-10.2) mg/dL Phosphorus 2.00 L D (2.5-4.5) mg/dL Albumin 2.9 L (3.9-5) g/dL Pituitary panel 02/03/20 Range/Units 06:53 Sodium 133 L (137-145) mmol/L Potassium 3.2 L (3.6-5.0) mmol/L Chloride 96.4 L (98-107) mmol/L Carbon Dioxide 28 (22-30) mmol/L BUN 5 L (7-17) mg/dL Creatinine 0.4 L (0.6-1.2) mg/dL Glucose 95 (65-100) mg/dL Calcium 6.4 L (8.4-10.2) mg/dL Adrenal panel 02/03/20 Range/Units 06:53 Sodium 133 L (137-145) mmol/L Potassium 3.2 L (3.6-5.0) mmol/L Chloride 96.4 L (98-107) mmol/L Carbon Dioxide 28 (22-30) mmol/L BUN 5 L (7-17) mg/dL Creatinine 0.4 L (0.6-1.2) mg/dL Glucose 95 (65-100) mg/dL Calcium 6.4 L (8.4-10.2) mg/dL Total Bilirubin 0.40 (0.1-1.2) mg/dL AST 9 (5-40) units/L ALT 5 L (7-56) units/L Alkaline Phosphatase 77 (35-129) units/L Total Protein 5.7 L (6.3-8.2) g/dL Albumin 2.9 L (3.9-5) g/dL
[2020-02-03] MEDS ORDERED: metroNIDAZOLE/NS 500 MG/100 ML 500 MG/100 ML BAG IV NR (12:00)
[2020-02-03] MEDS ORDERED: ceFAZolin/STERILE WATER 2 GM/20 ML SYRINGE IV NR (12:00)
[2020-02-03] MEDS ORDERED: SODIUM CHLORIDE 0.9% IRR 1,500 ML BOTTLE IR ONE ×3 (13:08→14:09)
[2020-02-03] MEDS ORDERED: dexAMETHasone 20 MG/5 ML VIAL ONE (13:47)
[2020-02-03] MEDS ORDERED: ONDANSETRON 4 MG/2 ML INJ ONE (13:47)
[2020-02-03] MEDS ORDERED: LACTATED RINGERS 1,000 ML ONE (14:03)
[2020-02-03] MEDS ORDERED: GLYCOPYRROLATE 0.4 MG/2 ML INJ ONE (14:26)
[2020-02-03] MEDS ORDERED: NEOSTIGMINE 10MG/10 ML INJ MDV ONE (14:26)
--- NOTE | 2020-02-03 14:38 | Post Operative Note ---
Pre-op diagnosis: 1. Colonic obstrcution 2. Colonic mass 3. mutliple abd wall hernias Post-op diagnosis: same Findings: transverse colon mass directly above middle colic artery causing obstruction of colon No evid liver mets or carcinomatosis clinically 3 separate midline hernias; one incarc hernia left abd (previous colostomy site) Procedure: ex lap/ open incisional hernia repair x3 (midline); open incarcerated incisional hernia left abdomen; extended right hemicolectomy; diverting ileostomy Anesthesia: SCOTT Surgeon: LEW HURST Machine Setter Supervisor: DIAZ PETER
[2020-02-03] MEDS: KETOROLAC 30 MG/1 ML INJ IV PRN (15:30)
[2020-02-03] MEDS: METOCLOPRAMIDE 10 MG/2 ML INJ IV PRN ×2 (15:50→21:42)
[2020-02-03] MEDS: PANTOPRAZOLE 40 MG INJ IV SCH (17:56)
[2020-02-03] MEDS ORDERED: TOTAL PARENTERAL NUTRITION 2,000 ML IV SCH (20:00)
[2020-02-03] MEDS: rOPINIRole 0.25 MG TAB PO SCH (21:41)
[2020-02-04] MEDS: HYDROmorphone 1 MG/1 ML INJ IV PRN ×4 (02:43→22:16)
[2020-02-04 06:22] LABS: Blood Urea Nitrogen 9 mg/dL (7-17); Calcium 6.5 mg/dL (8.4-10.2); Hemolysis Index 4
[2020-02-04 06:23] LABS: BUN/Creatinine Ratio 18
--- NOTE | 2020-02-04 06:49 | Progress Note ---
Assessment and Plan Assessment and Plan --COVID-19 test negative --obstructing colon mass/possible cancer Current Visit: Yes Status: Acute Plan to address problem: ex lap/ open incisional hernia repair x3 (midline); open incarcerated incisional hernia left abdomen; extended right hemicolectomy; diverting ileostomy --Multiple abdominal hernias; Current Visit: Yes Status: Acute Plan to address problem: ex lap/ open incisional hernia repair x3 (midline); open incarcerated incisional hernia left abdomen; extended right hemicolectomy; diverting ileosto my --Severe hypokalemia; K;2.8 today Current Visit: Yes Status: Acute Plan to address problem: Supplemented --Near complete obstruction of transverse colon 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 Current Visit: Yes Status: Acute Plan to address problem: S/p hemicolectomy No evidence of liver metastasis or lymph node metastasis -- Hypertension/moderate control Current Visit: Yes Status: Acute Plan to address problem: Monitor blood pressure every shift, continue medical management --GERD (gastroesophageal reflux disease) Current Visit: Yes Status: Acute Plan to address problem: PPI therapy, supportive care.\ --Hypokalemia, supplemented --Hypophosphatemia supplemented --Hypomagnesemia, supplemented -- DVT prophylaxis Current Visit: Yes Status: Acute Plan to address problem: SCD to bilateral lower extremities while in bed -- Advance care planning Current Visit: Yes Status: Acute Plan to address problem: Full code --Ongoing tobacco use Current Visit: Yes Status: Acute Smoking cessation, nicotine patch as needed Surgeon Dr. Powell evaluation recommendations noted and appreciated. Will closely monitor the patient and adjust management as needed Subjective Date of service: 02/03/20 Principal diagnosis: Abnormal CT Colon Interval history: Brief history 70-year-old female patient with complex abdominal surgical history along with history of colonic dysmotility. 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 Pt will need cancer resection, right jeffrey vs total colectomy. Evaluated and managed by surgeon Dr. Francois, GI Dr. Kenny. Patient's private surgeon Dr. Powell has evaluated the patient extensively today And is planning hemicolectomy, and multiple hernia repairs on 02/03/2020. I seen and examined the patient at the bedside today Patient's chart and medications reviewed Patient feels slightly better Colonoscopy findings reviewed. Patient was also evaluated by surgeon Dr. Evans Wen Planning colectomy and hernia repair on Monday Abdominal pain better 02/02/2020 Patient has low potassium and low phosphorus levels and low magnesium levels Supplemented 02/03/2020 ex lap/ open incisional hernia repair x3 (midline); open incarcerated incisional hernia left abdomen; extended right hemicolectomy; diverting ileostomy Objective - Constitutional Vitals: Vital Signs - 12hr 02/03/20 02/03/20 02/04/20 19:27 23:11 05:30 Temperature 98.0 F 98.0 F 98.1 F Pulse Rate 89 90 90 Respiratory 18 18 18 Rate Blood Pressure 113/57 83/48 117/51 O2 Sat by Pulse 97 98 97 Oximetry General appearance: Present: no acute distress, well-nourished - EENT Eyes: PERRL, EOM intact ENT: hearing intact, clear oral mucosa Ears: bilateral: normal - Neck Neck: supple, normal ROM - Respiratory Respiratory effort: normal Respiratory: bilateral: CTA - Breasts Breasts: normal - Cardiovascular Heart rate: 78 Rhythm: regular Heart Sounds: Present: S1 & S2. Absent: gallop, rub Extremities: pulses intact, No edema, normal color, Full ROM - Gastrointestinal General gastrointestinal: Present: soft, non-tender, non-distended, normal bowel sounds - Genitourinary Female genitourinary: normal - Integumentary Integumentary: clear, warm, dry - Musculoskeletal Musculoskeletal: 1, strength equal bilaterally - Neurologic Neurologic: moves all extremities - Psychiatric Psychiatric: memory intact, appropriate mood/affect, intact judgment & insight - Labs CBC & Chem 7: 01/31/20 09:15 02/04/20 05:51 Labs: Abnormal lab results 02/03/20 02/04/20 Range/Units 06:53 05:51 Sodium 133 L 135 L (137-145) mmol/L Potassium 3.2 L (3.6-5.0) mmol/L Chloride 96.4 L (98-107) mmol/L BUN 5 L (7-17) mg/dL Creatinine 0.4 L 0.5 L (0.6-1.2) mg/dL Glucose 123 H (65-100) mg/dL Calcium 6.4 L 6.5 L (8.4-10.2) mg/dL Phosphorus 2.00 L D 2.40 L (2.5-4.5) mg/dL ALT 5 L (7-56) units/L Total Protein 5.7 L (6.3-8.2) g/dL Albumin 2.9 L (3.9-5) g/dL
[2020-02-04] MEDS: PANTOPRAZOLE 40 MG INJ IV SCH (09:07)
[2020-02-04] MEDS: LACTATED RINGERS 1,000 ML IV SCH (09:09)
[2020-02-04 09:49] LABS: Basophils % (Auto) 0.2 % (0.0-1.8); Hematocrit 31.2 % (30.3-42.9); Hemoglobin 10.2 gm/dl (10.1-14.3); Lymphocytes # (Auto) 0.7 K/mm3 (1.2-5.4); Mean Corpuscular HGB Conc 33 % (30-34); Mean Corpuscular Volume 81 fl (79-97); Monocytes % (Auto) 7.7 % (0.0-7.3); Platelet Count 199 K/mm3 (140-440); Red Blood Count 3.84 M/mm3 (3.65-5.03); Red Cell Distribution Width 18.9 % (13.2-15.2)
--- NOTE | 2020-02-04 17:12 | Progress Note ---
Assessment and Plan POD#1 Extended Right Hemicolectomy/ Multiple Hernia Repair Doing well overall. Inc act/ IS usage NGT with minimal output-- remove; slowly adv to CLD Will start Zosyn empirically due to contamination of wound with ostomy output. plan d/w pt in detail Poss home in 2-3 days if cont to improve at this pace. Subjective Date of service: 02/04/20 Patient Reports: Positive: still having pain, flatus, bowel movement (+ileostomy output; midline wound contaminated by ostomy output; Not OOB; pain controlled) Objective Vital Signs - 12hr 02/04/20 02/04/20 02/04/20 05:30 07:33 08:36 Temperature 98.1 F 98.3 F Pulse Rate 90 85 Respiratory 18 18 Rate Blood Pressure 117/51 104/35 O2 Sat by Pulse 97 96 95 Oximetry 02/04/20 02/04/20 11:25 16:10 Temperature 98.7 F 98.9 F Pulse Rate 88 102 H Respiratory 18 18 Rate Blood Pressure 129/53 107/53 O2 Sat by Pulse 96 96 Oximetry - Abdomen soft, tender, bowel sounds hypoactive (approp TTP; ostomy pink with output; drsg (new) ok; [place]-serosang) - Labs 02/04/20 09:17 02/04/20 05:51 Diabetes panel 02/04/20 Range/Units 05:51 Sodium 135 L (137-145) mmol/L Potassium 4.4 D (3.6-5.0) mmol/L Chloride 101.1 (98-107) mmol/L Carbon Dioxide 24 (22-30) mmol/L BUN 9 (7-17) mg/dL Creatinine 0.5 L (0.6-1.2) mg/dL Glucose 123 H (65-100) mg/dL Calcium 6.5 L (8.4-10.2) mg/dL Calcium panel 02/04/20 Range/Units 05:51 Calcium 6.5 L (8.4-10.2) mg/dL Phosphorus 2.40 L (2.5-4.5) mg/dL Pituitary panel 02/04/20 Range/Units 05:51 Sodium 135 L (137-145) mmol/L Potassium 4.4 D (3.6-5.0) mmol/L Chloride 101.1 (98-107) mmol/L Carbon Dioxide 24 (22-30) mmol/L BUN 9 (7-17) mg/dL Creatinine 0.5 L (0.6-1.2) mg/dL Glucose 123 H (65-100) mg/dL Calcium 6.5 L (8.4-10.2) mg/dL Adrenal panel 02/04/20 Range/Units 05:51 Sodium 135 L (137-145) mmol/L Potassium 4.4 D (3.6-5.0) mmol/L Chloride 101.1 (98-107) mmol/L Carbon Dioxide 24 (22-30) mmol/L BUN 9 (7-17) mg/dL Creatinine 0.5 L (0.6-1.2) mg/dL Glucose 123 H (65-100) mg/dL Calcium 6.5 L (8.4-10.2) mg/dL
[2020-02-04] MEDS ORDERED: D5W/0.45% NACL/KCL 10 MEQ 10 MEQ/1,000 ML BAG IV SCH (18:00)
[2020-02-04 18:22] LABS: Blood Urea Nitrogen 8 mg/dL (7-17); Calcium 6.8 mg/dL (8.4-10.2); Hemolysis Index 1
[2020-02-04 18:26] LABS: BUN/Creatinine Ratio 20
[2020-02-04] MEDS ORDERED: TOTAL PARENTERAL NUTRITION IV SCH (20:00)
[2020-02-04] MEDS: rOPINIRole 0.25 MG TAB PO SCH (22:16)
[2020-02-04] MEDS: PIPERACIL/TAZOBACTA 4.5/NS 100 4.5 GM/100 ML VIAL IV SCH (22:17)
--- NOTE | 2020-02-04 23:12 | Progress Note ---
Assessment and Plan Assessment and Plan --COVID-19 test negative --obstructing colon mass/possible cancer Current Visit: Yes Status: Acute Plan to address problem: ex lap/ open incisional hernia repair x3 (midline); open incarcerated incisional hernia left abdomen; extended right hemicolectomy; diverting ileostomy On clears --Multiple abdominal hernias; Current Visit: Yes Status: Acute Plan to address problem: ex lap/ open incisional hernia repair x3 (midline); open incarcerated incisional hernia left abdomen; extended right hemicolectomy; diverting ileostomy --Severe hypokalemia; K;2.8 today Current Visit: Yes Status: Acute Plan to address problem: Supplemented --Near complete obstruction of transverse colon 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 Current Visit: Yes Status: Acute Plan to address problem: S/p hemicolectomy No evidence of liver metastasis or lymph node metastasis -- Hypertension/moderate control Current Visit: Yes Status: Acute Plan to address problem: Monitor blood pressure every shift, continue medical management --GERD (gastroesophageal reflux disease) Current Visit: Yes Status: Acute Plan to address problem: PPI therapy, supportive care.\ --Hypokalemia, supplemented --Hypophosphatemia supplemented --Hypomagnesemia, supplemented -- DVT prophylaxis Current Visit: Yes Status: Acute Plan to address problem: SCD to bilateral lower extremities while in bed -- Advance care planning Current Visit: Yes Status: Acute Plan to address problem: Full code --Ongoing tobacco use Current Visit: Yes Status: Acute Smoking cessation, nicotine patch as needed Surgeon Dr. Powell evaluation recommendations noted and appreciated. Will closely monitor the patient and adjust management as needed Subjective Date of service: 02/04/20 Principal diagnosis: Abnormal CT Colon Interval history: Brief history 70-year-old female patient with complex abdominal surgical history along with history of colonic dysmotility. 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 Pt will need cancer resection, right jeffrey vs total colectomy. Evaluated and managed by surgeon Dr. Francois, GI Dr. Kenny. Patient's private surgeon Dr. Powell has evaluated the patient extensively today And is planning hemicolectomy, and multiple hernia repairs on 02/03/2020. I seen and examined the patient at the bedside today Patient's chart and medications reviewed Patient feels slightly better Colonoscopy findings reviewed. Patient was also evaluated by surgeon Dr. Evans Wen Planning colectomy and hernia repair on Monday Abdominal pain better 02/02/2020 Patient has low potassium and low phosphorus levels and low magnesium levels Supplemented 02/03/2020 ex lap/ open incisional hernia repair x3 (midline); open incarcerated incisional hernia left abdomen; extended right hemicolectomy; diverting ileostomy 02/04/2020 Able to tolerate clears Objective - Constitutional Vitals: Vital Signs - 12hr 02/04/20 02/04/20 02/04/20 11:25 16:10 19:29 Temperature 98.7 F 98.9 F 98.5 F Pulse Rate 88 102 H 91 H Respiratory 18 18 18 Rate Blood Pressure 129/53 107/53 140/49 O2 Sat by Pulse 96 96 97 Oximetry 02/04/20 19:32 Temperature 98.9 F Pulse Rate 107 H Respiratory 18 Rate Blood Pressure 131/53 O2 Sat by Pulse 100 Oximetry General appearance: Present: no acute distress, well-nourished - EENT Eyes: PERRL, EOM intact ENT: hearing intact, clear oral mucosa Ears: bilateral: normal - Neck Neck: supple, normal ROM - Respiratory Respiratory effort: normal Respiratory: bilateral: CTA - Breasts Breasts: normal - Cardiovascular Heart rate: 78 Rhythm: regular Heart Sounds: Present: S1 & S2. Absent: gallop, rub Extremities: pulses intact, No edema, normal color, Full ROM - Gastrointestinal General gastrointestinal: Present: soft, non-tender, non-distended, normal bowel sounds - Genitourinary Female genitourinary: normal - Integumentary Integumentary: clear, warm, dry - Musculoskeletal Musculoskeletal: 1, strength equal bilaterally - Neurologic Neurologic: moves all extremities - Psychiatric Psychiatric: memory intact, appropriate mood/affect, intact judgment & insight - Labs CBC & Chem 7: 02/05/20 06:05 02/05/20 18:00 Labs: Abnormal lab results 02/04/20 02/04/20 02/04/20 Range/Units 05:51 09:17 14:45 WBC 12.4 H (4.5-11.0) K/mm3 MCH 27 L (28-32) pg RDW 18.9 H (13.2-15.2) % Lymph % (Auto) 6.0 L (13.4-35.0) % [place] % (Auto) 7.7 H (0.0-7.3) % Lymph # (Auto) 0.7 L (1.2-5.4) K/mm3 [place] # (Auto) 1.0 H (0.0-0.8) K/mm3 Seg Neutrophils % 86.1 H (40.0-70.0) % Seg Neutrophils # 10.7 H (1.8-7.7) K/mm3 Sodium 135 L 134 L (137-145) mmol/L Creatinine 0.5 L 0.4 L (0.6-1.2) mg/dL Glucose 123 H (65-100) mg/dL Calcium 6.5 L 6.8 L (8.4-10.2) mg/dL Phosphorus 2.40 L (2.5-4.5) mg/dL
[2020-02-05] MEDS: PIPERACIL/TAZOBACTA 4.5/NS 100 4.5 GM/100 ML VIAL IV SCH ×3 (05:59→23:16)
[2020-02-05 06:23] LABS: Hematocrit 30.4 % (30.3-42.9); Hemoglobin 9.8 gm/dl (10.1-14.3); Mean Corpuscular HGB Conc 32 % (30-34); Mean Corpuscular Volume 82 fl (79-97); Platelet Count 218 K/mm3 (140-440); Red Blood Count 3.72 M/mm3 (3.65-5.03); Red Cell Distribution Width 19.5 % (13.2-15.2)
[2020-02-05 06:48] LABS: Blood Urea Nitrogen 9 mg/dL (7-17); Calcium 7.4 mg/dL (8.4-10.2); Hemolysis Index 4
[2020-02-05 06:49] LABS: BUN/Creatinine Ratio 23
[2020-02-05 07:20] LABS: Anisocytosis 1+; Basophils % (Manual) 0 % (0.0-1.8); Eosinophils % (Manual) 0 % (0.0-4.3); Schistocytes Few; Total Cells Counted 100
[2020-02-05 07:21] LABS: Platelet Estimate Consistent w Auto; Target Cells Few
[2020-02-05] MEDS: PANTOPRAZOLE 40 MG INJ IV SCH ×2 (08:51→10:00)
[2020-02-05] MEDS: HYDROmorphone 1 MG/1 ML INJ IV PRN (08:51)
[2020-02-05 18:44] LABS: Blood Urea Nitrogen 10 mg/dL (7-17); Calcium 7.3 mg/dL (8.4-10.2); Hemolysis Index 0
[2020-02-05 18:49] LABS: BUN/Creatinine Ratio 20
--- NOTE | 2020-02-05 18:58 | Progress Note ---
Assessment and Plan Assessment and Plan --COVID-19 test negative --obstructing colon mass/possible cancer Current Visit: Yes Status: Acute Plan to address problem: ex lap/ open incisional hernia repair x3 (midline); open incarcerated incisional hernia left abdomen; extended right hemicolectomy; diverting ileostomy On clears And IV antibiotics Discharge planning for next 24 to 48 hours --Multiple abdominal hernias; Current Visit: Yes Status: Acute Plan to address problem: ex lap/ open incisional hernia repair x3 (midline); open incarcerated incision al hernia left abdomen; extended right hemicolectomy; diverting ileostomy --Severe hypokalemia; K;2.8 today Current Visit: Yes Status: Acute Plan to address problem: Supplemented --Near complete obstruction of transverse colon 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 Current Visit: Yes Status: Acute Plan to address problem: S/p hemicolectomy No evidence of liver metastasis or lymph node metastasis -- Hypertension/moderate control Current Visit: Yes Status: Acute Plan to address problem: Monitor blood pressure every shift, continue medical management --GERD (gastroesophageal reflux disease) Current Visit: Yes Status: Acute Plan to address problem: PPI therapy, supportive care.\ --Hypokalemia, supplemented --Hypophosphatemia supplemented --Hypomagnesemia, supplemented -- DVT prophylaxis Current Visit: Yes Status: Acute Plan to address problem: SCD to bilateral lower extremities while in bed -- Advance care planning Current Visit: Yes Status: Acute Plan to address problem: Full code --Ongoing tobacco use Current Visit: Yes Status: Acute Smoking cessation, nicotine patch as needed Surgeon Dr. Powell evaluation recommendations noted and appreciated. Will closely monitor the patient and adjust management as needed Subjective Date of service: 02/05/20 Principal diagnosis: Colon mass, status post colectomy and ileostomy Interval history: Brief history 70-year-old female patient with complex abdominal surgical history along with history of colonic dysmotility. 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 Pt will need cancer resection, right jeffrey vs total colectomy. Evaluated and managed by surgeon Dr. Francois, GI Dr. Kenny. Patient's private surgeon Dr. Powell has evaluated the patient extensively today And is planning hemicolectomy, and multiple hernia repairs on 02/03/2020. I seen and examined the patient at the bedside today Patient's chart and medications reviewed Patient feels slightly better Colonoscopy findings reviewed. Patient was also evaluated by surgeon Dr. Evans Wen Planning colectomy and hernia repair on Monday Abdominal pain better 02/02/2020 Patient has low potassium and low phosphorus levels and low magnesium levels Supplemented 02/03/2020 ex lap/ open incisional hernia repair x3 (midline); open incarcerated incisional hernia left abdomen; extended right hemicolectomy; diverting ileostomy 02/04/2020 Able to tolerate clears 02/05/2020 Able to tolerate clears Patient started on IV Zosyn for wound contamination (colostomy site )by surgery Objective - Constitutional Vitals: Vital Signs - 12hr 02/05/20 02/05/20 02/05/20 07:14 11:24 12:51 Temperature 98.9 F 98.3 F Pulse Rate 102 H 100 H Respiratory 18 18 Rate Blood Pressure 126/44 113/70 O2 Sat by Pulse 96 96 97 Oximetry 02/05/20 16:19 Temperature 98.8 F Pulse Rate 96 H Respiratory 18 Rate Blood Pressure 135/32 O2 Sat by Pulse 94 Oximetry General appearance: Present: no acute distress, well-nourished - EENT Eyes: PERRL, EOM intact ENT: hearing intact, clear oral mucosa Ears: bilateral: normal - Neck Neck: supple, normal ROM - Respiratory Respiratory effort: normal Respiratory: bilateral: CTA - Breasts Breasts: normal - Cardiovascular Heart rate: 78 Rhythm: regular Heart Sounds: Present: S1 & S2. Absent: gallop, rub Extremities: pulses intact, No edema, normal color, Full ROM - Gastrointestinal General gastrointestinal: Present: soft, tender, non-distended, normal bowel sounds, other (Ileostomy in place) Localized gastrointestinal: tender: diffuse - Genitourinary Female genitourinary: normal - Integumentary Integumentary: clear, warm, dry - Musculoskeletal Musculoskeletal: 1, strength equal bilaterally - Neurologic Neurologic: moves all extremities - Psychiatric Psychiatric: memory intact, appropriate mood/affect, intact judgment & insight - Labs CBC & Chem 7: 02/05/20 06:05 02/05/20 18:00 Labs: Abnormal lab results 11/18/20 11/18/20 11/18/20 Range/Units 06:05 06:05 18:00 WBC 15.1 H (4.5-11.0) K/mm3 Hgb 9.8 L (10.1-14.3) gm/dl MCH 26 L (28-32) pg RDW 19.5 H (13.2-15.2) % Seg Neuts % (Manual) 81.0 H (40.0-70.0) % Lymphocytes % (Manual) 9.0 L (13.4-35.0) % Monocytes % (Manual) 10.0 H (0.0-7.3) % Seg Neutrophils # Man 12.2 H (1.8-7.7) K/mm3 Monocytes # (Manual) 1.5 H (0.0-0.8) K/mm3 Sodium 134 L 132 L (137-145) mmol/L Creatinine 0.4 L 0.5 L (0.6-1.2) mg/dL Glucose 105 H 113 H (65-100) mg/dL Calcium 7.4 L 7.3 L (8.4-10.2) mg/dL Phosphorus 2.20 L (2.5-4.5) mg/dL
[2020-02-05] MEDS ORDERED: FAT EMULSIONS 20% 250 ML IV SCH (20:00)
[2020-02-05] MEDS ORDERED: TOTAL PARENTERAL NUTRITION 1,800 ML IV SCH (20:00)
[2020-02-05] MEDS: rOPINIRole 0.25 MG TAB PO SCH (23:15)
[2020-02-05] MEDS: LACTATED RINGERS 1,000 ML IV SCH (23:28)
[2020-02-06] MEDS: HYDROmorphone 1 MG/1 ML INJ IV PRN ×2 (04:23→21:10)
[2020-02-06] MEDS: PIPERACIL/TAZOBACTA 4.5/NS 100 4.5 GM/100 ML VIAL IV SCH ×3 (05:39→22:14)
[2020-02-06 08:38] LABS: Hematocrit 26.4 % (30.3-42.9); Hemoglobin 8.6 gm/dl (10.1-14.3); Mean Corpuscular HGB Conc 33 % (30-34); Mean Corpuscular Volume 81 fl (79-97); Platelet Count 203 K/mm3 (140-440); Red Blood Count 3.27 M/mm3 (3.65-5.03); Red Cell Distribution Width 19.1 % (13.2-15.2)
[2020-02-06 09:01] LABS: Blood Urea Nitrogen 8 mg/dL (7-17); Calcium 7.7 mg/dL (8.4-10.2); Hemolysis Index 1
[2020-02-06 09:03] LABS: BUN/Creatinine Ratio 20
--- NOTE | 2020-02-06 09:50 | Progress Note ---
Assessment and Plan POD#3 Will open wound (mill hand plate mill to do based on my instructions) as drainage onto/into wound causing erythema of wound and likely responsible for leukocytosis. Check CT scan A/P with oral and IV contrast tomorrow if WBC cont to rise (hospitalist- please order if you see pt before me- thanks). Adv diet to FLD today, reg tomorrow if tolerating. Possibly home this weekend with ostomy/open wound care (likely vac). Subjective Date of service: 02/06/20 Patient Reports: Positive: no new complaints, feels better (further issues with leakage from ostomy onto wound x2 last 24hrs; WBC inc), flatus Objective Vital Signs - 12hr 02/05/20 02/06/20 02/06/20 23:36 04:24 07:47 Temperature 98.9 F 97.8 F 98.7 F Pulse Rate 90 93 H 94 H Respiratory 18 18 22 Rate Blood Pressure 116/48 132/66 112/64 O2 Sat by Pulse 93 94 94 Oximetry - Abdomen soft, tender, bowel sounds normal (approp TTP; PRISCILLA-serosang; ostomy viable/skin level; +drainage onto wound), other (slighty erythema over lower 1/2 of wound where contamination has occurred) - Labs 02/06/20 08:16 02/06/20 08:16 Diabetes panel 02/05/20 02/06/20 Range/Units 18:00 08:16 Sodium 132 L 133 L (137-145) mmol/L Potassium 4.6 4.2 (3.6-5.0) mmol/L Chloride 100.0 101.4 (98-107) mmol/L Carbon Dioxide 24 24 (22-30) mmol/L BUN 10 8 (7-17) mg/dL Creatinine 0.5 L 0.4 L (0.6-1.2) mg/dL Glucose 113 H 119 H (65-100) mg/dL Calcium 7.3 L 7.7 L (8.4-10.2) mg/dL Calcium panel 02/05/20 02/06/20 Range/Units 18:00 08:16 Calcium 7.3 L 7.7 L (8.4-10.2) mg/dL Phosphorus 2.40 L (2.5-4.5) mg/dL Pituitary panel 02/05/20 02/06/20 Range/Units 18:00 08:16 Sodium 132 L 133 L (137-145) mmol/L Potassium 4.6 4.2 (3.6-5.0) mmol/L Chloride 100.0 101.4 (98-107) mmol/L Carbon Dioxide 24 24 (22-30) mmol/L BUN 10 8 (7-17) mg/dL Creatinine 0.5 L 0.4 L (0.6-1.2) mg/dL Glucose 113 H 119 H (65-100) mg/dL Calcium 7.3 L 7.7 L (8.4-10.2) mg/dL Adrenal panel 02/05/20 02/06/20 Range/Units 18:00 08:16 Sodium 132 L 133 L (137-145) mmol/L Potassium 4.6 4.2 (3.6-5.0) mmol/L Chloride 100.0 101.4 (98-107) mmol/L Carbon Dioxide 24 24 (22-30) mmol/L BUN 10 8 (7-17) mg/dL Creatinine 0.5 L 0.4 L (0.6-1.2) mg/dL Glucose 113 H 119 H (65-100) mg/dL Calcium 7.3 L 7.7 L (8.4-10.2) mg/dL
[2020-02-06 10:20] LABS: Eosinophils % (Manual) 0 % (0.0-4.3); Monocytes % (Manual) 0 % (0.0-7.3); Myelocytes # (Manual) 0.7 K/mm3; Total Cells Counted 100
[2020-02-06 10:21] LABS: Schistocytes Few
[2020-02-06 10:22] LABS: Burr Cells Few; Spherocytes Few
[2020-02-06 10:23] LABS: Platelet Estimate Consistent w Auto; Tear Drop Cells Few
[2020-02-06] MEDS: PANTOPRAZOLE 40 MG INJ IV SCH (10:57)
[2020-02-06] MEDS: LACTATED RINGERS 1,000 ML IV SCH (11:18)
--- NOTE | 2020-02-06 19:41 | Progress Note ---
Assessment and Plan Assessment and Plan --COVID-19 test negative --obstructing colon mass/possible cancer Current Visit: Yes Status: Acute Plan to address problem: ex lap/ open incisional hernia repair x3 (midline); open incarcerated incisional hernia left abdomen; extended right hemicolectomy; diverting ileostomy On clears And IV antibiotics Colostomy wound to be opened and cleaned --Multiple abdominal hernias; Current Visit: Yes Status: Acute Plan to address problem: ex lap/ open incisional hernia repair x3 (midline); open incarcerated incisional hernia left abdomen; extended right hemicolectomy; diverting ileostomy --Severe hypokalemia; K;2.8 today Current Visit: Yes Status: Acute Plan to address problem: Supplemented --Near complete obstruction of transverse colon 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 Current Visit: Yes Status: Acute Plan to address problem: S/p hemicolectomy No evidence of liver metastasis or lymph node metastasis -- Hypertension/moderate control Current Visit: Yes Status: Acute Plan to address problem: Monitor blood pressure every shift, continue medical management --GERD (gastroesophageal reflux disease) Current Visit: Yes Status: Acute Plan to address problem: PPI therapy, supportive care.\ --Hypokalemia, supplemented --Hypophosphatemia supplemented --Hypomagnesemia, supplemented -- DVT prophylaxis Current Visit: Yes Status: Acute Plan to address problem: SCD to bilateral lower extremities while in bed -- Advance care planning Current Visit: Yes Status: Acute Plan to address problem: Full code --Ongoing tobacco use Current Visit: Yes Status: Acute Smoking cessation, nicotine patch as needed Surgeon Dr. Powell evaluation recommendations noted and appreciated. Will closely monitor the patient and adjust management as needed Subjective Date of service: 02/06/20 Principal diagnosis: Colon mass, status post colectomy and ileostomy Interval history: Brief history 70-year-old female patient with complex abdominal surgical history along with history of colonic dysmotility. 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 Pt will need cancer resection, right jeffrey vs total colectomy. Evaluated and managed by surgeon Dr. Francois, GI Dr. Kenny. Patient's private surgeon Dr. Powell has evaluated the patient extensively today And is planning hemicolectomy, and multiple hernia repairs on 02/03/2020. I seen and examined the patient at the bedside today Patient's chart and medications reviewed Patient feels slightly better Colonoscopy findings reviewed. Patient was also evaluated by surgeon Dr. Evans Wen Planning colectomy and hernia repair on Monday Abdominal pain better 02/02/2020 Patient has low potassium and low phosphorus levels and low magnesium levels Supplemented 02/03/2020 ex lap/ open incisional hernia repair x3 (midline); open incarcerated incisional hernia left abdomen; extended right hemicolectomy; diverting ileostomy 02/04/2020 Able to tolerate clears 02/05/2020 Able to tolerate clears Patient started on IV Zosyn for wound contamination (colostomy site )by surgery 02/06/2020 Patient on IV antibiotics Wound care requested Objective - Constitutional Vitals: Vital Signs - 12hr 02/06/20 02/06/20 02/06/20 07:47 10:00 12:43 Temperature 98.7 F 99.0 F Pulse Rate 94 H 88 Respiratory 22 22 Rate Blood Pressure 112/64 129/56 O2 Sat by Pulse 94 96 96 Oximetry 02/06/20 02/06/20 14:35 16:04 Temperature 98.9 F Pulse Rate 86 Respiratory 18 Rate Blood Pressure 130/53 O2 Sat by Pulse 95 94 Oximetry General appearance: Present: no acute distress, well-nourished - EENT Eyes: PERRL, EOM intact ENT: hearing intact, clear oral mucosa Ears: bilateral: normal - Neck Neck: supple, normal ROM - Respiratory Respiratory effort: normal Respiratory: bilateral: CTA - Breasts Breasts: normal - Cardiovascular Rhythm: regular Heart Sounds: Present: S1 & S2. Absent: gallop, rub Extremities: pulses intact, No edema, normal color, Full ROM - Gastrointestinal General gastrointestinal: Present: soft, non-tender, non-distended, normal bowel sounds - Genitourinary Female genitourinary: normal - Integumentary Integumentary: clear, warm, dry - Musculoskeletal Musculoskeletal: 1, strength equal bilaterally - Neurologic Neurologic: moves all extremities - Psychiatric Psychiatric: memory intact, appropriate mood/affect, intact judgment & insight - Labs CBC & Chem 7: 02/06/20 08:16 02/06/20 08:16 Labs: Abnormal lab results 02/06/20 02/06/20 Range/Units 08:16 08:16 WBC 16.8 H (4.5-11.0) K/mm3 RBC 3.27 L (3.65-5.03) M/mm3 Hgb 8.6 L (10.1-14.3) gm/dl Hct 26.4 L (30.3-42.9) % MCH 26 L (28-32) pg RDW 19.1 H (13.2-15.2) % Seg Neuts % (Manual) 84.0 H (40.0-70.0) % Lymphocytes % (Manual) 7.0 L (13.4-35.0) % Seg Neutrophils # Man 14.1 H (1.8-7.7) K/mm3 Basophils # (Manual) 0.2 H (0.0-0.1) K/mm3 Sodium 133 L (137-145) mmol/L Creatinine 0.4 L (0.6-1.2) mg/dL Glucose 119 H (65-100) mg/dL Calcium 7.7 L (8.4-10.2) mg/dL Phosphorus 2.40 L (2.5-4.5) mg/dL
[2020-02-06] MEDS ORDERED: TOTAL PARENTERAL NUTRITION 1,800 ML IV SCH (20:00)
[2020-02-06] MEDS: rOPINIRole 0.25 MG TAB PO SCH (21:29)
[2020-02-07] MEDS: KETOROLAC 30 MG/1 ML INJ IV PRN ×2 (02:32→23:49)
[2020-02-07] MEDS: LORazepam 2 MG/ML VIAL IV PRN ×2 (02:32→23:49)
[2020-02-07] MEDS: PIPERACIL/TAZOBACTA 4.5/NS 100 4.5 GM/100 ML VIAL IV SCH ×3 (05:27→21:32)
[2020-02-07] MEDS: PANTOPRAZOLE 40 MG INJ IV SCH (09:09)
--- NOTE | 2020-02-07 11:47 | Progress Note ---
Assessment and Plan POD#4 Doing very well overall. labs not available yet today (RN couldn't draw from PICC)-- will await results. Will obtain CT A/P with oral/IV contrast if leukocytosis is worsening. If leukocytosis improving over today/tomorrow, pt may be d/c'd tomorrow. I believe the leukocytosis was from with wound contamination from ostoym leakage since pt is otherwise progressing normally. Cont Zosyn for now and home on oral abx if necessary. Stop TPN as pt adv diet well. CM to arrange [facility] for ostomy and wound care (plan per wound care physician). Subjective Date of service: 02/07/20 Patient Reports: Positive: no new complaints, feels better (good ostomy output; minimal pain; ambulating; haider FLD) Objective Vital Signs - 12hr 02/07/20 02/07/20 02/07/20 04:00 04:16 08:24 Temperature 98.6 F 97.9 F Pulse Rate 83 96 H Respiratory 18 18 Rate Blood Pressure 127/64 Blood Pressure 137/79 [Right] O2 Sat by Pulse 94 99 Oximetry - Abdomen soft, not tender, bowel sounds normal, not distended, wound (wound drsg covering lower wound; ostomy ok; Nt/ND; +bs) - Labs 02/06/20 08:16 02/06/20 08:16
[2020-02-07 12:19] LABS: Hematocrit 23.4 % (30.3-42.9); Mean Corpuscular HGB Conc 34 % (30-34); Mean Corpuscular Volume 80 fl (79-97); Platelet Count 239 K/mm3 (140-440); Red Blood Count 2.93 M/mm3 (3.65-5.03)
[2020-02-07 12:49] LABS: Blood Urea Nitrogen 10 mg/dL (7-17); Calcium 8.7 mg/dL (8.4-10.2); Hemolysis Index 14
[2020-02-07 12:51] LABS: BUN/Creatinine Ratio 25
[2020-02-07 13:43] LABS: Basophils % (Manual) 0 % (0.0-1.8); Eosinophils % (Manual) 0 % (0.0-4.3); Monocytes % (Manual) 0 % (0.0-7.3); Myelocytes # (Manual) 0.2 K/mm3; Total Cells Counted 100
[2020-02-07 13:44] LABS: Anisocytosis 1+; Target Cells Few; Tear Drop Cells Few
[2020-02-07 13:46] LABS: Platelet Estimate Consistent w Auto
--- NOTE | 2020-02-07 17:48 | Progress Note ---
Assessment and Plan Assessment and Plan --COVID-19 test negative --obstructing colon mass/possible cancer Current Visit: Yes Status: Acute Plan to address problem: ex lap/ open incisional hernia repair x3 (midline); open incarcerated incisional hernia left abdomen; extended right hemicolectomy; diverting ileostomy On clears And IV antibiotics Colostomy wound to be opened and cleaned --Multiple abdominal hernias; Current Visit: Yes Status: Acute Plan to address problem: ex lap/ open incisional hernia repair x3 (midline); open incarcerated incisional hernia left abdomen; extended right hemicolectomy; diverting ileostomy --Severe hypokalemia; K;2.8 today Current Visit: Yes Status: Acute Plan to address problem: Supplemented --Near complete obstruction of transverse colon 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 Current Visit: Yes Status: Acute Plan to address problem: S/p hemicolectomy No evidence of liver metastasis or lymph node metastasis -- Hypertension/moderate control Current Visit: Yes Status: Acute Plan to address problem: Monitor blood pressure every shift, continue medical management --GERD (gastroesophageal reflux disease) Current Visit: Yes Status: Acute Plan to address problem: PPI therapy, supportive care.\ --Hypokalemia, supplemented --Hypophosphatemia supplemented --Hypomagnesemia, supplemented -- DVT prophylaxis Current Visit: Yes Status: Acute Plan to address problem: SCD to bilateral lower extremities while in bed -- Advance care planning Current Visit: Yes Status: Acute Plan to address problem: Full code --Ongoing tobacco use Current Visit: Yes Status: Acute Smoking cessation, nicotine patch as needed Surgeon Dr. Powell evaluation recommendations noted and appreciated. Will closely monitor the patient and adjust management as needed Subjective Date of service: 02/07/20 Principal diagnosis: Colon mass, status post colectomy and ileostomy Interval history: Brief history 70-year-old female patient with complex abdominal surgical history along with history of colonic dysmotility. 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 Pt will need cancer resection, right jeffrey vs total colectomy. Evaluated and managed by surgeon Dr. Francois, GI Dr. Kenny. Patient's private surgeon Dr. Powell has evaluated the patient extensively today And is planning hemicolectomy, and multiple hernia repairs on 02/03/2020. I seen and examined the patient at the bedside today Patient's chart and medications reviewed Patient feels slightly better Colonoscopy findings reviewed. Patient was also evaluated by surgeon Dr. Evans Wen Planning colectomy and hernia repair on Monday Abdominal pain better 02/02/2020 Patient has low potassium and low phosphorus levels and low magnesium levels Supplemented 02/03/2020 ex lap/ open incisional hernia repair x3 (midline); open incarcerated incisional hernia left abdomen; extended right hemicolectomy; diverting ileostomy 02/04/2020 Able to tolerate clears 02/05/2020 Able to tolerate clears Patient started on IV Zosyn for wound contamination (colostomy site )by surgery 02/06/2020 Patient on IV antibiotics Wound care requested 02/15/2020 Patient feels much better --afebrile able to tolerate clears AA Objective - Constitutional Vitals: Vital Signs - 12hr 02/07/20 02/07/20 02/07/20 08:24 10:00 11:19 Temperature 97.9 F 98.0 F Pulse Rate 96 H 81 Respiratory 18 18 Rate Blood Pressure 127/64 143/60 O2 Sat by Pulse 99 96 97 Oximetry 02/07/20 15:57 Temperature 98.0 F Pulse Rate 86 Respiratory 18 Rate Blood Pressure 150/61 O2 Sat by Pulse 98 Oximetry General appearance: Present: no acute distress, well-nourished - EENT Eyes: PERRL, EOM intact ENT: hearing intact, clear oral mucosa Ears: bilateral: normal - Neck Neck: supple, normal ROM - Respiratory Respiratory effort: normal Respiratory: bilateral: CTA - Breasts Breasts: normal - Cardiovascular Heart rate: 78 Rhythm: regular Heart Sounds: Present: S1 & S2. Absent: gallop, rub Extremities: pulses intact, No edema, normal color, Full ROM - Gastrointestinal General gastrointestinal: Present: soft, non-tender, non-distended, normal bowel sounds - Genitourinary Female genitourinary: normal - Integumentary Integumentary: clear, warm, dry - Musculoskeletal Musculoskeletal: 1, strength equal bilaterally - Neurologic Neurologic: moves all extremities - Psychiatric Psychiatric: memory intact, appropriate mood/affect, intact judgment & insight - Labs CBC & Chem 7: 02/07/20 11:50 02/07/20 23:31 Labs: Abnormal lab results 02/07/20 02/07/20 Range/Units 04:00 11:50 RBC 2.93 L (3.65-5.03) M/mm3 Hgb 8.0 L (10.1-14.3) gm/dl Hct 23.4 L (30.3-42.9) % RDW 19.0 H (13.2-15.2) % Seg Neuts % (Manual) 89.0 H (40.0-70.0) % Lymphocytes % (Manual) 5.0 L (13.4-35.0) % Seg Neutrophils # Man 9.5 H (1.8-7.7) K/mm3 Lymphocytes # (Manual) 0.5 L (1.2-5.4) K/mm3 Sodium 134 L (137-145) mmol/L Creatinine 0.4 L (0.6-1.2) mg/dL Glucose 119 H (65-100) mg/dL
[2020-02-07] MEDS: rOPINIRole 0.25 MG TAB PO SCH (21:33)
[2020-02-07] MEDS: oxyCODONE /ACETAMINOPHEN 5-325MG TAB PO PRN (22:08)
[2020-02-08 00:30] LABS: Blood Urea Nitrogen 9 mg/dL (7-17); Calcium 8.4 mg/dL (8.4-10.2); Hemolysis Index 5
[2020-02-08 00:31] LABS: BUN/Creatinine Ratio 23
[2020-02-08] MEDS: PIPERACIL/TAZOBACTA 4.5/NS 100 4.5 GM/100 ML VIAL IV SCH ×2 (05:01→14:21)
[2020-02-08] MEDS ORDERED: PANTOPRAZOLE 40 MG TAB PO SCH (10:00)
[2020-02-08] MEDS: oxyCODONE /ACETAMINOPHEN 5-325MG TAB PO PRN (10:21)
[2020-02-08] MEDS: KETOROLAC 30 MG/1 ML INJ IV PRN (13:14)
--- NOTE | 2020-02-08 13:51 | Progress Note ---
Assessment and Plan POD#5 Pt doing well. Ok to d/c today. f/u wound clinic as already scheduled. f/u with me next week for staple removal. Reg diet No lifting >20 pounds or exercise for a month. Ok to shower. No bath until wound closed Antibiotic ointment/band-aid to drain site until closed fully. PATH d/w pt in detail-- she understands that she will likely need further therapy (chemo/etc) Pt has a previous Oncologist and I will give her the name of another to choose from or obtain second opinion. Subjective Date of service: 02/08/20 Patient Reports: Positive: no new complaints, feels better, pain is less, tolerating a regular diet (ambulating; minimal to no pain; no new c/o) Objective Vital Signs - 12hr 02/08/20 02/08/20 07:12 10:52 Temperature 97.0 F L 98.0 F Pulse Rate 86 83 Respiratory 18 18 Rate Blood Pressure 123/54 136/54 O2 Sat by Pulse 95 98 Oximetry - Abdomen soft, not tender, bowel sounds normal, not distended (upper wound c/d/i; lower wound with drsg covering; ostomy viable with output) - Labs 02/07/20 11:50 02/07/20 23:31 Diabetes panel 02/07/20 Range/Units 23:31 Sodium 135 L (137-145) mmol/L Potassium 3.9 (3.6-5.0) mmol/L Chloride 102.0 (98-107) mmol/L Carbon Dioxide 22 (22-30) mmol/L BUN 9 (7-17) mg/dL Creatinine 0.4 L (0.6-1.2) mg/dL Glucose 90 (65-100) mg/dL Calcium 8.4 (8.4-10.2) mg/dL Calcium panel 02/07/20 Range/Units 23:31 Calcium 8.4 (8.4-10.2) mg/dL Pituitary panel 02/07/20 Range/Units 23:31 Sodium 135 L (137-145) mmol/L Potassium 3.9 (3.6-5.0) mmol/L Chloride 102.0 (98-107) mmol/L Carbon Dioxide 22 (22-30) mmol/L BUN 9 (7-17) mg/dL Creatinine 0.4 L (0.6-1.2) mg/dL Glucose 90 (65-100) mg/dL Calcium 8.4 (8.4-10.2) mg/dL Adrenal panel 02/07/20 Range/Units 23:31 Sodium 135 L (137-145) mmol/L Potassium 3.9 (3.6-5.0) mmol/L Chloride 102.0 (98-107) mmol/L Carbon Dioxide 22 (22-30) mmol/L BUN 9 (7-17) mg/dL Creatinine 0.4 L (0.6-1.2) mg/dL Glucose 90 (65-100) mg/dL Calcium 8.4 (8.4-10.2) mg/dL
[2020-02-08 15:24] VITALS: BP 143/54
--- NOTE | 2020-02-08 16:30 | Discharge Summary ---
Providers - Providers Date of Admission: 01/27/20 16:26 Date of discharge: 02/08/20 Attending physician: REJI SEARS 01/27/20 15:14 Consult to Physician [CONS] Urgent Comment: Consulting Provider: PRITESH POLLARD Physician Instructions: Reason For Exam: Obstruction at transverse colon 01/27/20 16:05 Consult to Physician [CONS] Urgent Comment: Consulting Provider: BROCK JACOB Physician Instructions: Reason For Exam: Transverse colon obstruction possible mass 01/31/20 16:47 Consult to Dietitian/Nutrition [CONS] Routine Physician Instructions: Reason For Exam: Reason for Consult: Write/Manage TPN/PPN Consult to Physician [CONS] Routine Comment: For TPN Consulting Provider: MAVERICK BARRETT Physician Instructions: Reason For Exam: PICC line Consult to Physician [CONS] Urgent Comment: No need to call; MD aware Consulting Provider: LEW HURST Physician Instructions: Reason For Exam: bowel obstruction 01/31/20 22:33 PICC Line Insertion [Consult to PICC Line RN] [CONS] Routine Reason For Exam: picc line for dr. jacob Type Line:: PICC 02/04/20 10:23 Consult to Wound/ET Nurse [CONS] Urgent Reason For Exam: wound eval, midline wound, and ileostomy 02/04/20 17:07 Consult to Wound/ET Nurse [CONS] Routine Reason For Exam: ileostomy teaching please Primary care physician: FOOD SERVICE HELPER Hospitalization Condition: Stable Hospital course: Subjective Date of service: 02/08/20 Principal diagnosis: Colon mass, status post colectomy and ileostomy Interval history: Brief history 70-year-old female patient with complex abdominal surgical history along with history of colonic dysmotility. 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 Pt will need cancer resection, right jeffrey vs total colectomy. Evaluated and managed by surgeon Dr. Pollard, GI Dr. Jacob. Patient's private surgeon Dr. Hurst has evaluated the patient extensively today And is planning hemicolectomy, and multiple hernia repairs on 02/03/2020 . I seen and examined the patient at the bedside today Patient's chart and medications reviewed Patient feels slightly better Colonoscopy findings reviewed. Patient was also evaluated by surgeon Dr. Evans Wen Planning colectomy and hernia repair on Monday Abdominal pain better 02/02/2020 Patient has low potassium and low phosphorus levels and low magnesium levels Supplemented 02/03/2020 ex lap/ open incisional hernia repair x3 (midline); open incarcerated incisional hernia left abdomen; extended right hemicolectomy; diverting ileostomy 02/04/2020 Able to tolerate clears 02/05/2020 Able to tolerate clears Patient started on IV Zosyn for wound contamination (colostomy site )by surgery 02/06/2020 Patient on IV antibiotics Wound care requested 02/07/2020 Patient feels much better --afebrile able to tolerate clears 02/08/20 Patient being discharged today Assessment and Plan --COVID-19 test negative --obstructing colon mass/possible cancer Current Visit: Yes Status: Acute Plan to address problem: ex lap/ open incisional hernia repair x3 (midline); open incarcerated incisional hernia left abdomen; extended right hemicolectomy; diverting ileostomy On clears And IV antibiotics Colostomy wound to be opened and cleaned --Multiple abdominal hernias; Current Visit: Yes Status: Acute Plan to address problem: ex lap/ open incisional hernia repair x3 (midline); open incarcerated incisional hernia left abdomen; extended right hemicolectomy; diverting ileostomy --Severe hypokalemia; K;2.8 Current Visit: Yes Status: Acute Plan to address problem: Supplemented --Near complete obstruction of transverse colon 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 Current Visit: Yes Status: Acute Plan to address problem: S/p hemicolectomy No evidence of liver metastasis or lymph node metastasis -- Hypertension/moderate control Current Visit: Yes Status: Acute Plan to address problem: Monitor blood pressure every shift, continue medical management --GERD (gastroesophageal reflux disease) Current Visit: Yes Status: Acute Plan to address problem: PPI therapy, supportive care.\ --Hypokalemia, supplemented --Hypophosphatemia supplemented --Hypomagnesemia, supplemented Disposition: DC-01 TO HOME OR SELFCARE Core Measure Documentation - Palliative Care Palliative Care/ Comfort Measures: Not Applicable - Core Measures Any of the following diagnoses?: none Exam - Constitutional Vitals: Temp Pulse Resp BP Pulse Ox 97.7 F 76 16 143/54 95 02/08/20 15:05 02/08/20 15:05 02/08/20 15:05 02/08/20 15:05 02/08/20 15:05 General appearance: Present: no acute distress, well-nourished - EENT Eyes: Present: PERRL ENT: hearing intact, clear oral mucosa - Neck Neck: Present: supple, normal ROM - Respiratory Respiratory effort: normal Respiratory: bilateral: CTA - Cardiovascular Heart rate: 78 Rhythm: regular Heart Sounds: Present: S1 & S2. Absent: rub, click - Extremities Extremities: pulses symmetrical, No edema Peripheral Pulses: within normal limits - Abdominal General gastrointestinal: Present: soft, non-tender, non-distended, normal bowel sounds Female genitourinary: Present: normal - Rectal Rectal Exam: deferred - Integumentary Integumentary: Present: clear, warm, dry - Musculoskeletal Musculoskeletal: gait normal, strength equal bilaterally - Psychiatric Psychiatric: appropriate mood/affect, intact judgment & insight - Neurologic Neurologic: CNII-XII intact, moves all extremities Plan Activity: no restrictions Diet: regular Follow up with: YANA NI MD [Primary Care Provider] - 3-5 Days LEW HURST MD [Staff Physician] - 7 Days
[2020-02-08] MEDS: ACETAMINOPHEN 325 MG TAB PO PRN (21:20)
--- NOTE | 2020-02-08 22:47 | Operative Report ---
STAFF PHYSICIAN: Kiko Powell MD SOLAR MAINTENANCE TECHNICIAN: Jose Olsen MD PREOPERATIVE DIAGNOSES: 1. Midline incisional hernias x 3. 2. Left abdominal wall incarcerated incisional hernia. 3. Transverse colonic mass. 4. Colonic obstruction due to #3. POSTOPERATIVE DIAGNOSES: 1. Midline incisional hernias x 3. 2. Left abdominal wall incarcerated incisional hernia. 3. Transverse colonic mass. 4. Colonic obstruction due to #3. OPERATIONS PERFORMED: 1. Incisional hernia repair x 3 (midline-separate hernias). 2. Incisional hernia repair x 3 (midline-separate hernias). 3. Incisional hernia repair x 3 (midline-separate hernias). 4. Left abdominal wall incarcerated incisional hernia repair. 5. Extended right hemicolectomy. 6. Diverting ileostomy. INDICATIONS FOR PROCEDURE: The patient is a 70-year-old female who presented with abdominal pain, is found on CAT scan to have multiple hernias from her previous surgeries and a transverse colonic mass causing colonic obstruction. This has been biopsied, it is highly suspicious for cancer and the patient was brought to the operating room on an urgent basis. ANESTHESIA: General endotracheal anesthesia. SPECIMEN SENT: Extended right hemicolectomy specimen. FINDINGS: 1. Large transverse colon mass directly above middle colic vessels with some hard palpable adenopathy in the middle colic distribution of approximately 3-4 nodes. No evidence of liver involvement clinically by palpation or visualization. No evidence of carcinomatosis. 2. Poor tissue quality overall. 3. Small bowel incarcerated and left abdominal incarcerated incisional hernia was viable. 4. There were 3 separate midline hernias, all requiring separate dissection, which mandates reimbursement for each. 5. Bowel quality poor overall. BLOOD LOSS: 50 mL. COMPLICATIONS: None. DRAINS: A 15-N[place]ien Juan. DESCRIPTION OF OPERATION: After informed consent was obtained, the patient was taken to the operating room, placed under general endotracheal anesthesia. The patient was prepped and draped in standard surgical fashion. Surgical timeout was performed. Routine antibiotic prophylaxis had been given appropriately. We began incision high right below the xiphoid process as we knew this was clean in the abdomen on the CAT scan and entered in the abdominal cavity. We then worked our way down to the first hernia, which is in the epigastric region. There was no involvement of bowel. There is a small amount of omentum within it. We dissected out this hernia sac and we excised it using electrocautery and threw it away. There was no evidence of involvement of bowel. Then, we moved on to the second incisional hernia that was slightly larger more near the umbilical region and this again was dissected out, sac was discarded. There was no evidence of bowel involvement. Then, we moved on to the suprapubic area where there was a third separate hernia. All these had fascial bridges between them. We dissected out that hernia sac in the same manner. We were then able to enter in the abdominal cavity. There were some adhesions to the midline incision, which were taken down with blunt and sharp dissection, also using the Harmonic Focus device. We then dissected out the bowel that was involved in the left-sided incarcerated incisional hernia and this bowel was fully viable and the hernia defect was approximately 4 x 3 cm. Of note, the midline hernias, epigastric one was approximately 2 x 3 cm. The near umbilical one was approximately 6 x 5 cm and the suprapubic one was approximately 3 x 2 cm. We then closed the left incarcerated incisional hernia primarily with a #1 PDS running looped and 5 mm bites as we could not use mesh due to the colon operation. We then evaluated and found a very distended colon and distended ileum going up to the transverse colon mass. This was right above the middle colic vessels and had some palpable lymphadenopathy there. We then chose to go approximately 5-6 cm beyond this and divided the transverse colon and took down the mesentery to the root, making sure to maintain the arcade for the transverse colon anastomosis. We then dissected out the gastrocolic ligament and freed up the colon using blunt dissection of the hepatic flexure and taking down the white line of Toldt, mobilized the entire right colon and divided the terminal ileum with a MANDO stapler and took the mesentery near its base using a Harmonic Focus like device. We then sent the specimen for pathology. As we were evaluating to do our ileocolic anastomosis, the terminal ileum had taken some of the blood supply and it was slightly under vascularized, so therefore, we took another small piece of terminal ileum approximately 5-6 inches, so we could have a well vascularized bowel for anastomosis. This was also sent to pathology with the distal portion marked with ink. We then performed a side by side ileocolic anastomosis and oversewed the TIA staple line with a 2-0 running Vicryl suture, took a 3-0 silk suture to take pressure off the toe of the anastomosis and closed the mesenteric defect with interrupted 3-0 silk sutures also. There was a widely patent, well vascularized and well oriented anastomosis; however, the bowel was not of great quality in this patient who had a history of having poor tissue quality and was a smoker and was malnourished with a new diagnosis of cancer, so both Dr. Olsen and I do not feel that the anastomosis could be trusted; therefore, we decided on performing a double barrel diverting ileostomy. We made a hole in the skin in a circular fashion and dissected out a cylinder of skin down to the anterior rectus fascia on the right side above the umbilicus, dissected through the anterior fascia, retracted the muscle laterally and medially and divided the posterior fascia and passed 2 fingers enough to bring up this piece of bowel without compromising its blood supply and this stayed approximately 3-4 cm above the skin with no problem. We then irrigated out the abdomen thoroughly. We placed a drain in the abdomen near the anastomosis and brought out through a separate stab incision and sewed in with a silk suture. We then closed the abdomen, midline fascia with #1 PDS running looped sutures and 5 mm bites. Again, the patient had poor tissue quality, but we could not use mesh for closure due to the colon operation and closed this under only mild tension, but again very poor tissue quality. We then irrigated the wound out thoroughly and closed the wound with casey. We then matured the ileostomy in standard Terra fashion using interrupted 3-0 silk sutures. Sterile dressings were applied. The patient was extubated and taken to recovery room in stable fashion. JOB# [id number] TF/SALLY
== END 2020-02-08 21:23 | disposition home health service (06) | DRG 330 ==
LOC: ED 11:12 → 3A 16:26 → 3B-SURG 18:27
PROVIDERS: ADMIT Internal Medicine; ATTEND Internal Medicine
PROC: 0D7N8ZZ Dilation of Sigmoid Colon, Via Natural or Artificial Opening Endoscopic (ICD-10-PCS; principal; 2020-01-30)
PROC: 0DBL8ZX Excision of Transverse Colon, Via Natural or Artificial Opening Endoscopic, Diagnostic (ICD-10-PCS; 2020-01-30)
PROC: 02HV33Z Insertion of Infusion Device into Superior Vena Cava, Percutaneous Approach (ICD-10-PCS; 2020-02-01)
PROC: 0DTF0ZZ Resection of Right Large Intestine, Open Approach (ICD-10-PCS; 2020-02-03)
PROC: 0WQF0ZZ Repair Abdominal Wall, Open Approach (ICD-10-PCS; 2020-02-03)
PROC: 0WQF0ZZ Repair Abdominal Wall, Open Approach (ICD-10-PCS; 2020-02-03)
PROC: 0D1B0Z4 Bypass Ileum to Cutaneous, Open Approach (ICD-10-PCS; 2020-02-03)
DX: C18.4 Malignant neoplasm of transverse colon (principal); F17.213 Nicotine dependence, cigarettes, with withdrawal; K43.0 Incisional hernia with obstruction, without gangrene; I10 Essential (primary) hypertension; E87.6 Hypokalemia; K21.9 Gastro-esophageal reflux disease without esophagitis; K43.9 Ventral hernia without obstruction or gangrene; Z20.828 Contact with and (suspected) exposure to other viral communicable diseases; E83.39 Other disorders of phosphorus metabolism; E83.42 Hypomagnesemia; Z90.710 Acquired absence of both cervix and uterus; Z85.41 Personal history of malignant neoplasm of cervix uteri; Z82.49 Family history of ischemic heart disease and other diseases of the circulatory system
CPT/HCPCS: 36415; 74018; 74022; 74177; 80048; 80053; 81001; 82140; 83690; 83735; 84100; 84132; 84478; 85007; 85014; 85018; 85025; 87040; 87086; 88305; 88309; 88341; 88342; 94760; 96365; 96375; G0378; C1726; C1765; C9113; J0780; J1100; J1170; J1644; J1885; J2060; J2270; J2405; J2543; J2704; J2710; J2765; J3475; J3480; J7030; J7040; J7120; Q9967; U0003

== ENCOUNTER 2020-02-10 10:16 | Outpatient (CLI) | payer MEDICARE ==
[2020-02-10] MEDS ORDERED: LIDOCAINE (4%) 40 MG/ML TOPICAL SOLN 50 ML BOTTLE TP ONE (11:10)
== END 2020-02-10 10:17 | disposition home or self-care (01) ==
LOC: WOUND 10:16
PROVIDERS: ATTEND Surgery
DX: K94.13 Enterostomy malfunction (principal); S31.109S Unspecified open wound of abdominal wall, unspecified quadrant without penetration into peritoneal cavity, sequela; E87.6 Hypokalemia; K21.9 Gastro-esophageal reflux disease without esophagitis; I10 Essential (primary) hypertension; C18.9 Malignant neoplasm of colon, unspecified; F17.290 Nicotine dependence, other tobacco product, uncomplicated; F32.9 Major depressive disorder, single episode, unspecified; F40.240 Claustrophobia; F41.9 Anxiety disorder, unspecified; Z90.710 Acquired absence of both cervix and uterus; Z85.41 Personal history of malignant neoplasm of cervix uteri; Y73.3 Surgical instruments, materials and gastroenterology and urology devices (including sutures) associated with adverse incidents; Y83.8 Other surgical procedures as the cause of abnormal reaction of the patient, or of later complication, without mention of misadventure at the time of the procedure; Y92.234 Operating room of hospital as the place of occurrence of the external cause; X58.XXXS Exposure to other specified factors, sequela
CPT/HCPCS: 11042; 11045; G0463; 99205; 99214

== ENCOUNTER 2020-02-15 15:30 | Inpatient (IN) | payer MEDICARE ==
--- NOTE | 2020-02-15 16:40 | Emergency Department Report ---
ED General Adult HPI - General Stated complaint: INFECTION OF SURGERY SITE Time Seen by Provider: 02/15/20 16:37 - History of Present Illness Initial comments: This is a 70-year-old female who apparently is a poor historian. She states that she is unaware that she has another surgical procedure scheduled. It does appear that she was planned for a hemicolectomy. She is suffering from a post op infection. She was recently discharged. She does have home wound care. She states that her abdomen became red "today". She states that she is unable to g et the colostomy bag to stick. She is not reporting a recent measured temperature, fever or chills. Possibly she is somewhat confused. Hospitalization Condition: Stable Hospital course: Subjective Date of service: 02/08/20 Principal diagnosis: Colon mass, status post colectomy and ileostomy Interval history: Brief history 70-year-old female patient with complex abdominal surgical history along with history of colonic dysmotility. Pt with rectosigmoid stricture along with tra nsverse colon mass (likely ca based on path) causing near total obstruction. Pt will need cancer resection, right jeffrey vs total colectomy. Evaluated and managed by surgeon Dr. Francois, GI Dr. Kenny. Patient's private surgeon Dr. Powell has evaluated the patient extensively today And is planning hemicolectomy, and multiple hernia repairs on 02/03/2020. I seen and examined the patient at the bedside today Patient's chart and medications reviewed Patient feels slightly better Colonoscopy findings reviewed. Patient was also evaluated by surgeon Dr. Evans Wen Planning colectomy and hernia repair on Monday Abdominal pain better 02/02/2020 Patient has low potassium and low phosphorus levels and low magnesium levels Supplemented 02/03/2020 ex lap/ open incisional hernia repair x3 (midline); open incarcerated incisional hernia left abdomen; extended right hemicolectomy; diverting ileostomy 02/04/2020 Able to tolerate clears 02/05/2020 Able to tolerate clears Patient started on IV Zosyn for wound contamination (colostomy site )by surgery - Related Data Previous Rx's Medication Instructions Recorded Last Taken Type Pantoprazole [Protonix TAB] 40 mg PO QDAC #30 tablet 02/08/20 Unknown Rx traMADoL [Ultram 50 MG tab] 50 mg PO BID PRN #30 tablet 02/08/20 Unknown Rx Allergies Allergy/AdvReac Type Severity Reaction Status Date / Time No Known Allergies Allergy Unverified 01/27/20 11:26 ED Review of Systems ROS: Stated complaint: INFECTION OF SURGERY SITE Other details as noted in HPI Constitutional: weakness Eyes: denies: eye discharge, vision change ENT: denies: throat pain, epistaxis Respiratory: denies: cough, shortness of breath Cardiovascular: denies: chest pain, edema Gastrointestinal: as per HPI, abdominal pain, other (Drainage from surgical site) Musculoskeletal: denies: joint swelling, arthralgia Skin: as per HPI Neurological: denies: headache, weakness Psychiatric: denies: anxiety, depression Hematological/Lymphatic: denies: easy bleeding, easy bruising ED Past Medical Hx - Past Medical History Hx Hypertension: Yes Hx Heart Attack/AMI: No Hx Deep Vein Thrombosis: No Hx Liver Disease: No Hx Renal Disease: No (incontinence ) Hx Sickle Cell Disease: No Hx Seizures: No Hx Asthma: No Hx COPD: No - Surgical History Hx Pacemaker: No Hx Internal Defibrillator: No Additional Surgical History: colon resection - Social History Smoking Status: Current Every Day Smoker - Medications Home Medications: Home Medications Medication Instructions Recorded Confirmed Last Taken Type Pantoprazole [Protonix TAB] 40 mg PO QDAC #30 tablet 02/08/20 Unknown Rx traMADoL [Ultram 50 MG tab] 50 mg PO BID PRN #30 tablet 02/08/20 Unknown Rx ED Physical Exam - General General appearance: other (Tell) - Head Head exam: Present: atraumatic, normocephalic - Eye Eye exam: Present: normal appearance. Absent: scleral icterus - ENT ENT exam: Present: mucous membranes dry - Neck Neck exam: Present: normal inspection. Absent: meningismus - Respiratory Respiratory exam: Present: normal lung sounds bilaterally. Absent: respiratory distress - Cardiovascular Cardiovascular Exam: Present: regular rate, normal rhythm. Absent: systolic murmur, diastolic murmur, rubs, gallop - GI/Abdominal GI/Abdominal exam: Present: soft, distended, other (Ciliotomy scar is dehisced with pooling of purulent material. Colostomy bag is removed.). Absent: tenderness (Not grossly), guarding, rebound - Extremities Exam Extremities exam: Present: normal inspection - Back Exam Back exam: Present: other (Unable) - Neurological Exam Neurological exam: Present: other (No acute focal deficit) - Psychiatric Psychiatric exam: Present: normal affect, normal mood - Skin Skin exam: Present: other (There is erythema of the abdomen somewhat globally from above the umbilicus down ) ED Course Vital Signs 02/15/20 02/15/20 15:45 18:50 Temperature 98.3 F Pulse Rate 88 100 H Respiratory 18 16 Rate Blood Pressure 125/68 Blood Pressure 132/80 [Left] O2 Sat by Pulse 97 97 Oximetry - Reevaluation(s) Reevaluation #1: Discussed with Dr. Powell. Requested to admit to hospitalist. Diagnosis thus far, abdominal wall cellulitis. CT yet pending. Lactic acid was normal. White count was fine chemistries okay except for hypomagnesemia. Discussed with hospitalist. Admit to hospitalist service. 02/15/20 19:20 Reevaluation #2: Reviewed CT report with Dr. Powell. Patient will be admitted to the hospitalist service. 02/15/20 19:30 ED Medical Decision Making - Lab Data Result diagrams: 02/15/20 16:55 02/15/20 16:55 Laboratory Results - last 24 hr 02/15/20 02/15/20 02/15/20 16:55 16:55 16:55 WBC 10.8 RBC 3.70 Hgb 9.9 L Hct 29.8 L MCV 81 MCH 27 L MCHC 33 RDW 19.5 H Plt Count 730 H Lymph % (Auto) 11.8 L Coal % (Auto) 3.7 Eos % (Auto) 1.5 Baso % (Auto) 1.4 Lymph # (Auto) 1.3 Coal # (Auto) 0.4 Eos # (Auto) 0.2 Baso # (Auto) 0.1 Seg Neutrophils % 81.6 H Seg Neutrophils # 8.8 H PT 14.5 INR 1.15 H VBG pH Lactic Acid 1.00 Magnesium NT-Pro-B Natriuret Pep 02/15/20 02/15/20 16:55 16:55 WBC RBC Hgb Hct MCV MCH MCHC RDW Plt Count Lymph % (Auto) Coal % (Auto) Eos % (Auto) Baso % (Auto) Lymph # (Auto) Coal # (Auto) Eos # (Auto) Baso # (Auto) Seg Neutrophils % Seg Neutrophils # PT INR VBG pH 7.569 H Lactic Acid Magnesium 1.10 L NT-Pro-B Natriuret Pep 253.2 Laboratory Results - last 24 hr 02/15/20 02/15/20 02/15/20 16:55 16:55 16:55 WBC 10.8 RBC 3.70 Hgb 9.9 L Hct 29.8 L MCV 81 MCH 27 L MCHC 33 RDW 19.5 H Plt Count 730 H Lymph % (Auto) 11.8 L Coal % (Auto) 3.7 Eos % (Auto) 1.5 Baso % (Auto) 1.4 Lymph # (Auto) 1.3 Coal # (Auto) 0.4 Eos # (Auto) 0.2 Baso # (Auto) 0.1 Seg Neutrophils % 81.6 H Seg Neutrophils # 8.8 H PT 14.5 INR 1.15 H VBG pH Sodium Potassium Chloride Carbon Dioxide Anion Gap BUN Creatinine Estimated GFR BUN/Creatinine Ratio Glucose Lactic Acid 1.00 Calcium Magnesium Total Bilirubin Direct Bilirubin Indirect Bilirubin AST ALT Alkaline Phosphatase Total Creatine Kinase CK-MB (CK-2) CK-MB (CK-2) Rel Index NT-Pro-B Natriuret Pep Total Protein Albumin Albumin/Globulin Ratio Lipase Blood Type Antibody Screen 02/15/20 02/15/20 02/15/20 16:55 16:55 16:55 WBC RBC Hgb Hct MCV MCH MCHC RDW Plt Count Lymph % (Auto) Coal % (Auto) Eos % (Auto) Baso % (Auto) Lymph # (Auto) Coal # (Auto) Eos # (Auto) Baso # (Auto) Seg Neutrophils % Seg Neutrophils # PT INR VBG pH 7.569 H Sodium 137 Potassium 3.5 L Chloride 102.6 Carbon Dioxide 24 Anion Gap 14 BUN 9 Creatinine 0.5 L Estimated GFR > 60 BUN/Creatinine Ratio 18 Glucose 101 H Lactic Acid Calcium 8.3 L Magnesium 1.10 L Total Bilirubin 0.30 Direct Bilirubin < 0.2 Indirect Bilirubin 0.1 AST 14 ALT 13 Alkaline Phosphatase 136 H Total Creatine Kinase 20 L CK-MB (CK-2) 1.1 CK-MB (CK-2) Rel Index 5.5 H NT-Pro-B Natriuret Pep 253.2 Total Protein 6.3 Albumin 2.3 L Albumin/Globulin Ratio 0.6 Lipase 47 Blood Type Antibody Screen 02/15/20 16:55 WBC RBC Hgb Hct MCV MCH MCHC RDW Plt Count Lymph % (Auto) Coal % (Auto) Eos % (Auto) Baso % (Auto) Lymph # (Auto) Coal # (Auto) Eos # (Auto) Baso # (Auto) Seg Neutrophils % Seg Neutrophils # PT INR VBG pH Sodium Potassium Chloride Carbon Dioxide Anion Gap BUN Creatinine Estimated GFR BUN/Creatinine Ratio Glucose Lactic Acid Calcium Magnesium Total Bilirubin Direct Bilirubin Indirect Bilirubin AST ALT Alkaline Phosphatase Total Creatine Kinase CK-MB (CK-2) CK-MB (CK-2) Rel Index NT-Pro-B Natriuret Pep Total Protein Albumin Albumin/Globulin Ratio Lipase Blood Type O POSITIVE Antibody Screen Negative Critical care attestation.: If time is entered above; I have spent that time in minutes in the direct care of this critically ill patient, excluding procedure time. ED Disposition Clinical Impression: Abdominal wall cellulitis Disposition: OP ADMIT IP TO THIS HOSP Is pt being admited?: Yes Does the pt Need Aspirin: No Condition: Stable Referrals: [facility] [Other] - 3-5 Days Time of Disposition: 19:21
[2020-02-15] MEDS ORDERED: SODIUM CHLORIDE 0.9% 500 ML 500 ML IV ONE (16:46)
[2020-02-15] MEDS ORDERED: MEROPENEM/NS 1 GRAM/100 ML 1 GRAM/100 ML BAG IV ONE ×4 (16:50→22:00)
[2020-02-15] MEDS ORDERED: MORPHINE 2 MG/1 ML INJ IV ONE (16:51)
[2020-02-15] MEDS ORDERED: ONDANSETRON 4 MG/2 ML INJ IV ONE (16:51)
[2020-02-15] MEDS ORDERED: VANCOMYCIN PHARMACY TO DOSE IV SCH (17:00)
[2020-02-15 17:12] LABS: Basophils # (Auto) 0.1 K/mm3 (0.0-0.1); Basophils % (Auto) 1.4 % (0.0-1.8); Eosinophils # (Auto) 0.2 K/mm3 (0.0-0.4); Eosinophils % (Auto) 1.5 % (0.0-4.3); Hematocrit 29.8 % (30.3-42.9); Hemoglobin 9.9 gm/dl (10.1-14.3); Lymphocytes # (Auto) 1.3 K/mm3 (1.2-5.4); Lymphocytes % (Auto) 11.8 % (13.4-35.0); Mean Corpuscular HGB Conc 33 % (30-34); Mean Corpuscular Volume 81 fl (79-97); Monocytes # (Auto) 0.4 K/mm3 (0.0-0.8); Monocytes % (Auto) 3.7 % (0.0-7.3); Platelet Count 730 K/mm3 (140-440); Red Cell Distribution Width 19.5 % (13.2-15.2)
[2020-02-15 17:21] LABS: INR 1.15 (0.87-1.13)
--- NOTE | 2020-02-15 17:27 | XRay Report ---
CHEST 1 VIEW INDICATION: possible Sepsis. COMPARISON: 01/28/2020 FINDINGS: SUPPORT DEVICES: None. HEART: Within normal limits. LUNGS/PLEURA: No acute air space or interstitial disease. ADDITIONAL FINDINGS: None. IMPRESSION: 1. No acute findings. Signer Name: Abel Busby MD Signed: 02/15/2020 5:22 PM Workstation Name: [id number]
[2020-02-15] MEDS ORDERED: WATER FOR IRRIG STERILE 250 ML BOTTLE IR ONE (17:51)
[2020-02-15 18:01] LABS: Creatine Kinase MB 1.1 ng/mL (0.0-4.0)
[2020-02-15 18:03] LABS: Alanine Aminotransferase 13 units/L (7-56); Albumin 2.3 g/dL (3.9-5); Blood Urea Nitrogen 9 mg/dL (7-17); Calcium 8.3 mg/dL (8.4-10.2); Hemolysis Index 7
[2020-02-15 18:04] LABS: BUN/Creatinine Ratio 18; Bilirubin,Direct < 0.2 mg/dL (0-0.2)
[2020-02-15] MEDS ORDERED: VANCOMYCIN 1,250 MG in SODIUM CHLORIDE 0.9% 250ML 250 ML IV ONE (18:30)
[2020-02-15] MEDS ORDERED: SODIUM CHLORIDE 0.9% 1000 ML 1,000 ML IV ONE (18:59)
[2020-02-15] MEDS ORDERED: MAGNESIUM SULFATE 2 GM/50 ML BAG IV ONE (19:00)
--- NOTE | 2020-02-15 19:22 | Cat Scan Report ---
CT ABDOMEN AND PELVIS WITH CONTRAST INDICATION / CLINICAL INFORMATION: post op infection. TECHNIQUE: Axial CT images were obtained through the abdomen and pelvis after IV contrast. All CT sc ans at this location are performed using CT dose reduction for ALARA by means of automated exposure c ontrol. COMPARISON: CT dated 01/27/2020. FINDINGS: LOWER CHEST: Unremarkable LIVER: Hepatic steatosis. GALLBLADDER/BILIARY TREE: Cholelithiasis. PANCREAS: Unremarkable SPLEEN: Unremarkable ADRENALS: Unremarkable KIDNEYS / URETER: Unremarkable URINARY BLADDER: Unremarkable REPRODUCTIVE ORGANS: Stable in appearance. BOWEL: Interval right lower quadrant ostomy. There are also postsurgical changes of right hemicolecto my with similar suture material at the rectosigmoid junction. No evidence of bowel obstruction or inf lammation. LYMPH NODES: No significant adenopathy. VASCULATURE: Moderate atherosclerotic calcification without acute abnormality. OTHER: There is scattered trace free fluid throughout the abdomen and pelvis. No organized fluid janett ection. No intraperitoneal free air. There are postsurgical changes of the left ventral abdominal wal l, without evidence of recurrent hernia. There are inflammatory changes of the subcutaneous tissues o f the left ventral abdominal wall, without organized fluid collection. Midline ventral abdominal wall defect noted. SKELETAL SYSTEM: Remote right pubic fractures are present. There are similar-appearing extensive sacr al insufficiency fractures. No acute fracture. IMPRESSION: 1. Extensive interval postsurgical changes as above. There is expected trace free fluid throughout th e abdomen, without evidence of organized fluid collection. 2. Inflammatory stranding involving the left ventral abdominal wall. No evidence of recurrent hernia or organized fluid collection within the subcutaneous tissues. 3. Other stable chronic and incidental findings as above. Signer Name: Durga Torres MD Signed: 02/15/2020 7:17 PM Workstation Name: [id number]
--- NOTE | 2020-02-15 19:23 | History and Physical Report ---
History of Present Illness Chief complaint: I am having problems History of present illness: 70 YO Female with HTN, GERD, Cervical Cancer, Chronic Hypokalemia S/P Bowel Resection, Nicotine Dependence presents to ED for evaluation. Patient states that she has experienced abdominal wall discomfort over the past 1 week with worsening symptoms over the past 4 days. Patient acknowledges redness, pain, profuse drainage from her abdominal wall incision. Patient states that pain is 10/10, constant, worsened with movement, relieved somewhat with nonmovement. EMS was notified and upon arrival the patient was found to be in distress and subsequently transported to [facility] for further care and evaluation of the aforement ioned symptoms. Patient seen and evaluated in the emergency department. All lab and imaging studies reviewed. Patient underwent CT scan of the abdomen and pelvis which revealed abdominal wall cellulitis. Patient admitted to surgical floor due to increased risk of worsening symptoms. Patient initiated on IV fluid resuscitation therapy, as well as IV antibiotic therapy. Surgical team consulted in ED. Patient denies fever, chills, chest pain, palpitations, productive cough, recent ill contacts, or known exposure to COVID-19. Prior admission on 01/27/2020 reviewed. All medication listed at time of admission has been reconciled. Advanced care planning conducted in the emergency department. Past History Past Medical History: cancer, GERD, hyperthyroidism, other (See HPI) Past Surgical History: hysterectomy (Colostomy placement), bowel surgery Social history: , smoking Family history: hypertension Medications and Allergies Allergies Allergy/AdvReac Type Severity Reaction Status Date / Time No Known Allergies Allergy Unverified 01/27/20 11:26 Home Medications Medication Instructions Recorded Confirmed Last Taken Type Pantoprazole [Protonix TAB] 40 mg PO QDAC #30 tablet 02/08/20 Unknown Rx traMADoL [Ultram 50 MG tab] 50 mg PO BID PRN #30 tablet 02/08/20 Unknown Rx Active Meds: Active Medications Metronidazole (Flagyl 500 Mg/100 Ml) 500 mg in 100 mls @ 100 mls/hr IV Q8HR [facility]; Protocol Vancomycin HCl 1,250 mg/ (Sodium Chloride) 275 mls @ 137.5 mls/hr IV ONCE ONE Stop: 02/15/20 20:29 Sodium Chloride (Nacl 0.9% 1000 Ml) 1,000 mls @ 125 mls/hr IV ONCE ONE Stop: 02/16/20 02:58 Magnesium Sulfate (Magnesium Sulfate 2gm/50ml) 2 gm in 50 mls @ 100 mls/hr IV ONCE ONE Stop: 02/15/20 19:29 Review of Systems Constitutional: no weight loss, no weight gain, no fever, no chills Ears, nose, mouth and throat: no ear pain, no ear discharge, no tinnitis, no decreased hearing, no nose pain Cardiovascular: no chest pain, no orthopnea, no rapid/irregular heart beat, no edema, no syncope Respiratory: no cough, no cough with sputum Gastrointestinal: abdominal pain, no nausea, no vomiting, no diarrhea, no constipation Genitourinary Female: no pelvic pain, no flank pain, no menorrhagia, no dysuria, no urinary frequency, no stress incontinence Rectal: no pain, no incontinence, no bleeding Musculoskeletal: no neck stiffness, no low back pain Integumentary: no rash, no pruritis, no redness, no sores, no wounds Neurological: no head injury, no transient paralysis, no paralysis, no weakness, no parathesias, no numbness, no tingling Psychiatric: no anxiety, no change in sleep habits, no sleep disturbances Endocrine: no cold intolerance, no heat intolerance, no polyphagia, no polydipsia Hematologic/Lymphatic: no easy bruising, no easy bleeding, no lymphedema Allergic/Immunologic: no allergic rhinitis, no wheezing, no angioedema Exam - Constitutional Vitals: Temp Pulse Resp BP Pulse Ox 98.3 F 100 H 16 132/80 97 02/15/20 15:45 02/15/20 18:50 02/15/20 18:50 02/15/20 18:50 02/15/20 18:50 General appearance: Present: mild distress - EENT Eyes: Present: PERRL ENT: hearing intact, clear oral mucosa - Neck Neck: Present: supple, normal ROM - Respiratory Respiratory effort: normal Respiratory: bilateral: CTA - Cardiovascular Heart Sounds: Present: S1 & S2. Absent: rub, click - Extremities Extremities: pulses symmetrical, No edema Peripheral Pulses: within normal limits - Abdominal General gastrointestinal: Present: soft, non-tender, non-distended, normal bowel sounds Female genitourinary: Present: normal - Integumentary Integumentary: Present: clear, warm, dry - Musculoskeletal Musculoskeletal: gait normal, strength equal bilaterally - Psychiatric Psychiatric: appropriate mood/affect, intact judgment & insight - Neurologic Neurologic: CNII-XII intact, moves all extremities Results - Labs CBC & Chem 7: 02/15/20 16:55 02/15/20 16:55 Labs: Abnormal lab results 02/15/20 02/15/20 02/15/20 Range/Units 16:55 16:55 16:55 Hgb 9.9 L (10.1-14.3) gm/dl Hct 29.8 L (30.3-42.9) % MCH 27 L (28-32) pg RDW 19.5 H (13.2-15.2) % Plt Count 730 H (140-440) K/mm3 Lymph % (Auto) 11.8 L (13.4-35.0) % Seg Neutrophils % 81.6 H (40.0-70.0) % Seg Neutrophils # 8.8 H (1.8-7.7) K/mm3 INR 1.15 H (0.87-1.13) VBG pH 7.569 H (7.320-7.420) Potassium (3.6-5.0) mmol/L Creatinine (0.6-1.2) mg/dL Glucose (65-100) mg/dL Calcium (8.4-10.2) mg/dL Magnesium (1.7-2.3) mg/dL Alkaline Phosphatase (35-129) units/L Total Creatine Kinase (30-135) units/L CK-MB (CK-2) Rel Index (0-4) Albumin (3.9-5) g/dL 02/15/20 02/15/20 Range/Units 16:55 16:55 Hgb (10.1-14.3) gm/dl Hct (30.3-42.9) % MCH (28-32) pg RDW (13.2-15.2) % Plt Count (140-440) K/mm3 Lymph % (Auto) (13.4-35.0) % Seg Neutrophils % (40.0-70.0) % Seg Neutrophils # (1.8-7.7) K/mm3 INR (0.87-1.13) VBG pH (7.320-7.420) Potassium 3.5 L (3.6-5.0) mmol/L Creatinine 0.5 L (0.6-1.2) mg/dL Glucose 101 H (65-100) mg/dL Calcium 8.3 L (8.4-10.2) mg/dL Magnesium 1.10 L (1.7-2.3) mg/dL Alkaline Phosphatase 136 H (35-129) units/L Total Creatine Kinase 20 L (30-135) units/L CK-MB (CK-2) Rel Index 5.5 H (0-4) Albumin 2.3 L (3.9-5) g/dL Assessment and Plan - Patient Problems (1) Abdominal wall cellulitis Current Visit: Yes Status: Acute Plan to address problem: CBC, CMP, CT scan abdomen and pelvis, surgical team consulted, serial abdominal exam, IV antibiotic therapy. Wound care consulted. (2) GERD (gastroesophageal reflux disease) Current Visit: No Status: Acute Qualifiers: Esophagitis presence: without esophagitis Qualified Code(s): K21.9 - Gastro-esophageal reflux disease without esophagitis Plan to address problem: PPI therapy, supportive care. (3) Hypertension Current Visit: No Status: Acute Qualifiers: Hypertension type: essential hypertension Qualified Code(s): I10 - Essential (primary) hypertension Plan to address problem: Monitor blood pressure every shift, continue medical management. (4) DVT prophylaxis Current Visit: No Status: Acute Plan to address problem: SCD to bilateral lower extremities while in bed, patient is ambulatory. (5) Advance care planning Current Visit: No Status: Acute Plan to address problem: Disease education conducted, patient is full code, prognosis discussed, care pl an discussed, patient knowledges understanding and agreement with care plan. +30 minutes.
[2020-02-15] MEDS ORDERED: ALBUTEROL 2.5 MG/3 ML NEBU IH PRN (19:31)
--- NOTE | 2020-02-15 19:31 | Consultation ---
History of Present Illness Consult date: 02/15/20 Medications and Allergies Allergies Allergy/AdvReac Type Severity Reaction Status Date / Time No Known Allergies Allergy Unverified 01/27/20 11:26 Home Medications Medication Instructions Recorded Confirmed Last Taken Type Pantoprazole [Protonix TAB] 40 mg PO QDAC #30 tablet 02/08/20 Unknown Rx traMADoL [Ultram 50 MG tab] 50 mg PO BID PRN #30 tablet 02/08/20 Unknown Rx Active Meds: Active Medications Metronidazole (Flagyl 500 Mg/100 Ml) 500 mg in 100 mls @ 100 mls/hr IV Q8HR [facility]; Protocol Vancomycin HCl 1,250 mg/ (Sodium Chloride) 275 mls @ 137.5 mls/hr IV ONCE ONE Stop: 02/15/20 20:29 Sodium Chloride (Nacl 0.9% 1000 Ml) 1,000 mls @ 125 mls/hr IV ONCE ONE Stop: 02/16/20 02:58 Magnesium Sulfate (Magnesium Sulfate 2gm/50ml) 2 gm in 50 mls @ 100 mls/hr IV ONCE ONE Stop: 02/15/20 19:29 Vancomycin HCl 1,250 mg/ (Sodium Chloride) 275 mls @ 137.5 mls/hr IV Q12H [facility] Exam Vital Signs Temp Pulse Resp BP Pulse Ox 98.3 F 88 18 125/68 97 02/15/20 15:45 02/15/20 15:45 02/15/20 15:45 02/15/20 15:45 02/15/20 15:45 Results - Labs 02/15/20 16:55 02/15/20 16:55 Abnormal lab results 02/15/20 02/15/20 02/15/20 Range/Units 16:55 16:55 16:55 Hgb 9.9 L (10.1-14.3) gm/dl Hct 29.8 L (30.3-42.9) % MCH 27 L (28-32) pg RDW 19.5 H (13.2-15.2) % Plt Count 730 H (140-440) K/mm3 Lymph % (Auto) 11.8 L (13.4-35.0) % Seg Neutrophils % 81.6 H (40.0-70.0) % Seg Neutrophils # 8.8 H (1.8-7.7) K/mm3 INR 1.15 H (0.87-1.13) VBG pH 7.569 H (7.320-7.420) Potassium (3.6-5.0) mmol/L Creatinine (0.6-1.2) mg/dL Glucose (65-100) mg/dL Calcium (8.4-10.2) mg/dL Magnesium (1.7-2.3) mg/dL Alkaline Phosphatase (35-129) units/L Total Creatine Kinase (30-135) units/L CK-MB (CK-2) Rel Index (0-4) Albumin (3.9-5) g/dL 02/15/20 02/15/20 Range/Units 16:55 16:55 Hgb (10.1-14.3) gm/dl Hct (30.3-42.9) % MCH (28-32) pg RDW (13.2-15.2) % Plt Count (140-440) K/mm3 Lymph % (Auto) (13.4-35.0) % Seg Neutrophils % (40.0-70.0) % Seg Neutrophils # (1.8-7.7) K/mm3 INR (0.87-1.13) VBG pH (7.320-7.420) Potassium 3.5 L (3.6-5.0) mmol/L Creatinine 0.5 L (0.6-1.2) mg/dL Glucose 101 H (65-100) mg/dL Calcium 8.3 L (8.4-10.2) mg/dL Magnesium 1.10 L (1.7-2.3) mg/dL Alkaline Phosphatase 136 H (35-129) units/L Total Creatine Kinase 20 L (30-135) units/L CK-MB (CK-2) Rel Index 5.5 H (0-4) Albumin 2.3 L (3.9-5) g/dL Diabetes panel 02/15/20 Range/Units 16:55 Sodium 137 (137-145) mmol/L Potassium 3.5 L (3.6-5.0) mmol/L Chloride 102.6 (98-107) mmol/L Carbon Dioxide 24 (22-30) mmol/L BUN 9 (7-17) mg/dL Creatinine 0.5 L (0.6-1.2) mg/dL Glucose 101 H (65-100) mg/dL Calcium 8.3 L (8.4-10.2) mg/dL AST 14 (5-40) units/L ALT 13 (7-56) units/L Alkaline Phosphatase 136 H (35-129) units/L Total Protein 6.3 (6.3-8.2) g/dL Albumin 2.3 L (3.9-5) g/dL Calcium panel 02/15/20 Range/Units 16:55 Calcium 8.3 L (8.4-10.2) mg/dL Albumin 2.3 L (3.9-5) g/dL Pituitary panel 02/15/20 Range/Units 16:55 Sodium 137 (137-145) mmol/L Potassium 3.5 L (3.6-5.0) mmol/L Chloride 102.6 (98-107) mmol/L Carbon Dioxide 24 (22-30) mmol/L BUN 9 (7-17) mg/dL Creatinine 0.5 L (0.6-1.2) mg/dL Glucose 101 H (65-100) mg/dL Calcium 8.3 L (8.4-10.2) mg/dL Adrenal panel 02/15/20 Range/Units 16:55 Sodium 137 (137-145) mmol/L Potassium 3.5 L (3.6-5.0) mmol/L Chloride 102.6 (98-107) mmol/L Carbon Dioxide 24 (22-30) mmol/L BUN 9 (7-17) mg/dL Creatinine 0.5 L (0.6-1.2) mg/dL Glucose 101 H (65-100) mg/dL Calcium 8.3 L (8.4-10.2) mg/dL Total Bilirubin 0.30 (0.1-1.2) mg/dL AST 14 (5-40) units/L ALT 13 (7-56) units/L Alkaline Phosphatase 136 H (35-129) units/L Total Protein 6.3 (6.3-8.2) g/dL Albumin 2.3 L (3.9-5) g/dL Assessment and Plan d/w ER He is concerned about purulent drainage from open lower abd wound. CT with no evid intra-abd complication after surgery. Will admit pt to medicine with recommendation for commissioning manager to see pt for ostomy/wound. I will see pt tomorrow and view rads images to see if abx needed or not. Rec empiric abx until then. Reg diet
[2020-02-15] MEDS ORDERED: MORPHINE 2 MG/1 ML INJ ONE (19:53)
[2020-02-15] MEDS ORDERED: SODIUM CHLORIDE 0.9% 500 ML 500 ML ONE (19:54)
[2020-02-15] MEDS: metroNIDAZOLE/NS 500 MG/100 ML 500 MG/100 ML BAG IV SCH (19:58)
[2020-02-15] MEDS: SODIUM CHLORIDE 0.9% 1000 ML 1,000 ML IV SCH (20:17)
[2020-02-15] MEDS ORDERED: HYDROmorphone 1 MG/1 ML INJ ONE (20:49)
[2020-02-15] MEDS ORDERED: HYDROmorphone 1 MG/1 ML INJ IV ONE (20:50)
[2020-02-15 21:51] LABS: Bacteria,Urine 1+ /HPF (Negative); Bilirubin,Urine NEG (Negative); Blood,Urine NEG (Negative); Color,Urine Yellow (Yellow); Mucus,Urine FEW /HPF; Protein,Urine <15 mg/dL mg/dL (Negative); Urobilinogen,Urine < 2.0 mg/dL (<2.0)
[2020-02-16] MEDS: ACETAMINOPHEN 325 MG TAB PO PRN ×2 (00:30→08:45)
[2020-02-16 04:49] LABS: Basophils # (Auto) 0.1 K/mm3 (0.0-0.1); Eosinophils # (Auto) 0.2 K/mm3 (0.0-0.4); Eosinophils % (Auto) 2.8 % (0.0-4.3); Hematocrit 25.9 % (30.3-42.9); Hemoglobin 8.5 gm/dl (10.1-14.3); Lymphocytes # (Auto) 1.4 K/mm3 (1.2-5.4); Lymphocytes % (Auto) 17.2 % (13.4-35.0); Mean Corpuscular HGB Conc 33 % (30-34); Mean Corpuscular Volume 81 fl (79-97); Monocytes # (Auto) 0.5 K/mm3 (0.0-0.8); Monocytes % (Auto) 5.7 % (0.0-7.3); Platelet Count 662 K/mm3 (140-440); Red Cell Distribution Width 19.4 % (13.2-15.2)
[2020-02-16 05:14] LABS: Blood Urea Nitrogen 7 mg/dL (7-17); Calcium 7.5 mg/dL (8.4-10.2); Hemolysis Index 1
[2020-02-16 05:16] LABS: BUN/Creatinine Ratio 14
[2020-02-16] MEDS: metroNIDAZOLE/NS 500 MG/100 ML 500 MG/100 ML BAG IV SCH ×4 (06:00→23:34)
[2020-02-16] MEDS: VANCOMYCIN 1,250 MG in SODIUM CHLORIDE 0.9% 250ML 250 ML IV SCH ×2 (08:46→20:53)
--- NOTE | 2020-02-16 09:41 | Progress Note ---
Assessment and Plan Assessment and plan: 70 YO Female with HTN, GERD, Cervical Cancer, Chronic Hypokalemia S/P Bowel Resection, Nicotine Dependence presents to ED for evaluation. Patient states that she has experienced abdominal wall discomfort over the past 1 week with worsening symptoms over the past 4 days. Patient acknowledges redness, pain, profuse drainage from her abdominal wall incision. Patient states that pain is 10/10, constant, worsened with movement, relieved somewhat with nonmovement. EMS was notified and upon arrival the patient was found to be in distress and subsequently transported to [facility] for further care and evaluation of the aforementioned symptoms. Patient seen and evaluated in the emergency department. All lab and imaging studies reviewed. Patient underwent CT scan of the abdomen and pelvis which revealed abdominal wall cellulitis. Patient admitted to surgical floor due to increased risk of worsening symptoms. Patient initiated on IV fluid resuscitation therapy, as well as IV antibiotic therapy. Surgical team consulted in ED. Patient denies fever, chills, chest pain, palpitations, productive cough, recent ill contacts, or known exposure to COVID- 19. Prior admission on 01/27/2020 reviewed. All medication listed at time of admission has been reconciled. Advanced care planning conducted in the emergency department. 02/15: Pain control. Wound care to evaluate colostomy bag and leak. Start patient on nystatin powder. Continue antibiotics until reevaluation by surgeon. Restart home medications. Hypokalemia has improved. Change Mensah catheter to purewick. (1) Abdominal wall cellulitis Current Visit: Yes Status: Acute Plan to address problem: CBC, CMP, CT scan abdomen and pelvis, surgical team consulted, serial abdominal exam, IV antibiotic therapy. Wound care consulted. (2) GERD (gastroesophageal reflux disease) Current Visit: No Status: Acute Qualifiers: Esophagitis presence: without esophagitis Qualified Code(s): K21.9 - Gastro -esophageal reflux disease without esophagitis Plan to address problem: PPI therapy, supportive care. (3) Hypertension Current Visit: No Status: Acute Qualifiers: Hypertension type: essential hypertension Qualified Code(s): I10 - Essential (primary) hypertension Plan to address problem: Monitor blood pressure every shift, continue medical management. (4) DVT prophylaxis Current Visit: No Status: Acute Plan to address problem: SCD to bilateral lower extremities while in bed, patient is ambulatory. (5) Advance care planning Current Visit: No Status: Acute Plan to address problem: Disease education conducted, patient is full code, prognosis discussed, care plan discussed, patient knowledges understanding and agreement with care plan. +30 minutes. History Interval history: Patient seen and examined reports leaking colostomy bag. Reports pain. Hospitalist Physical - Physical exam Narrative exam: VITAL SIGNS: Reviewed. GENERAL: The patient appears normally developed, morbidly obese vital signs as documented. HEAD: No signs of head trauma. EYES: Pupils are equal. Extraocular motions intact. EARS: Hearing grossly intact. MOUTH: Oropharynx is normal. NECK: No adenopathy, no JVD. CHEST: Chest with clear breath sounds bilaterally. No wheezes, rales, or rhonchi. CARDIAC: Regular rate and rhythm. S1 and S2, without murmurs, gallops, or rubs. VASCULAR: No Edema. Peripheral pulses normal and equal in all extremities. ABDOMEN: Surgical casey, right lower quadrant colostomy, dressing over open dehisced wound. Excoriations and redness noted around the wound. Tender with mild guarding. No masses palpated. Bowel Sounds normal. MUSCULOSKELETAL: Good range of motion of all major joints. Extremities without clubbing, cyanosis or edema. NEUROLOGIC EXAM: Alert and oriented x 3 No focal sensory or strength deficits. Speech normal. Follows commands. PSYCHIATRIC: Mood normal. SKIN: detail exam as documented in skin assessment - Constitutional Vitals: Temp Pulse Resp BP Pulse Ox 98.4 F 88 18 134/48 96 02/16/20 07:31 02/16/20 07:31 02/16/20 07:31 02/16/20 07:31 02/16/20 07:31 General appearance: Present: mild distress Results - Labs CBC & Chem 7: 02/16/20 04:08 02/16/20 04:08 Labs: Laboratory Last Values WBC 8.4 K/mm3 (4.5-11.0) 02/16/20 04:08 RBC 3.20 M/mm3 (3.65-5.03) L 02/16/20 04:08 Hgb 8.5 gm/dl (10.1-14.3) L 02/16/20 04:08 Hct 25.9 % (30.3-42.9) L 02/16/20 04:08 MCV 81 fl (79-97) 02/16/20 04:08 MCH 27 pg (28-32) L 02/16/20 04:08 MCHC 33 % (30-34) 02/16/20 04:08 RDW 19.4 % (13.2-15.2) H 02/16/20 04:08 Plt Count 662 K/mm3 (140-440) H 02/16/20 04:08 Lymph % (Auto) 17.2 % (13.4-35.0) 02/16/20 04:08 Maury % (Auto) 5.7 % (0.0-7.3) 02/16/20 04:08 Eos % (Auto) 2.8 % (0.0-4.3) 02/16/20 04:08 Baso % (Auto) 1.0 % (0.0-1.8) 02/16/20 04:08 Lymph # (Auto) 1.4 K/mm3 (1.2-5.4) 02/16/20 04:08 Maury # (Auto) 0.5 K/mm3 (0.0-0.8) 02/16/20 04:08 Eos # (Auto) 0.2 K/mm3 (0.0-0.4) 02/16/20 04:08 Baso # (Auto) 0.1 K/mm3 (0.0-0.1) 02/16/20 04:08 Seg Neutrophils % 73.3 % (40.0-70.0) H 02/16/20 04:08 Seg Neutrophils # 6.1 K/mm3 (1.8-7.7) 02/16/20 04:08 PT 14.5 Sec. (12.2-14.9) 02/15/20 16:55 INR 1.15 (0.87-1.13) H 02/15/20 16:55 VBG pH 7.569 (7.320-7.420) H 02/15/20 16:55 Sodium 137 mmol/L (137-145) 02/16/20 04:08 Potassium 3.9 mmol/L (3.6-5.0) 02/16/20 04:08 Chloride 104.0 mmol/L (98-107) 02/16/20 04:08 Carbon Dioxide 21 mmol/L (22-30) L 02/16/20 04:08 Anion Gap 16 mmol/L 02/16/20 04:08 BUN 7 mg/dL (7-17) 02/16/20 04:08 Creatinine 0.5 mg/dL (0.6-1.2) L 02/16/20 04:08 Estimated GFR > 60 ml/min 02/16/20 04:08 BUN/Creatinine Ratio 14 % 02/16/20 04:08 Glucose 79 mg/dL (65-100) 02/16/20 04:08 Lactic Acid 0.90 mmol/L (0.7-2.0) 02/15/20 19:51 Calcium 7.5 mg/dL (8.4-10.2) L 02/16/20 04:08 Magnesium 1.10 mg/dL (1.7-2.3) L 02/15/20 16:55 Total Bilirubin 0.30 mg/dL (0.1-1.2) 02/15/20 16:55 Direct Bilirubin < 0.2 mg/dL (0-0.2) 02/15/20 16:55 Indirect Bilirubin 0.1 mg/dL 02/15/20 16:55 AST 14 units/L (5-40) 02/15/20 16:55 ALT 13 units/L (7-56) 02/15/20 16:55 Alkaline Phosphatase 136 units/L (35-129) H 02/15/20 16:55 Total Creatine Kinase 20 units/L (30-135) L 02/15/20 16:55 CK-MB (CK-2) 1.1 ng/mL (0.0-4.0) 02/15/20 16:55 CK-MB (CK-2) Rel Index 5.5 (0-4) H 02/15/20 16:55 NT-Pro-B Natriuret Pep 253.2 pg/mL (0-900) 02/15/20 16:55 Total Protein 6.3 g/dL (6.3-8.2) 02/15/20 16:55 Albumin 2.3 g/dL (3.9-5) L 02/15/20 16:55 Albumin/Globulin Ratio 0.6 % 02/15/20 16:55 Lipase 47 units/L (13-60) 02/15/20 16:55 Urine Color Yellow (Yellow) 02/15/20 21:05 Urine Turbidity Clear (Clear) 02/15/20 21:05 Urine pH 5.0 (5.0-7.0) 02/15/20 21:05 Ur Specific [place] 1.055 (1.003-1.030) H 02/15/20 21:05 Urine Protein <15 mg/dl mg/dL (Negative) 02/15/20 21:05 Urine Glucose (UA) Neg mg/dL (Negative) 02/15/20 21:05 Urine Ketones Tr mg/dL (Negative) 02/15/20 21:05 Urine Blood Neg (Negative) 02/15/20 21:05 Urine Nitrite Neg (Negative) 02/15/20 21:05 Urine Bilirubin Neg (Negative) 02/15/20 21:05 Urine Urobilinogen < 2.0 mg/dL (<2.0) 02/15/20 21:05 Ur Leukocyte Esterase Neg (Negative) 02/15/20 21:05 Urine WBC (Auto) 2.0 /HPF (0.0-6.0) 02/15/20 21:05 Urine RBC (Auto) 1.0 /HPF (0.0-6.0) 02/15/20 21:05 U Epithel Cells (Auto) < 1.0 /HPF (0-13.0) 02/15/20 21:05 Urine Bacteria (Auto) 1+ /HPF (Negative) 02/15/20 21:05 Urine Mucus Few /HPF 02/15/20 21:05 Urine Yeast (Budding) 2+ /HPF 02/15/20 21:05 Blood Type O POSITIVE 02/15/20 16:55 Antibody Screen Negative 02/15/20 16:55 Microbiology: Microbiology 02/15/20 16:55 Peripheral/Venous Blood Culture - Preliminary Culture in Progress 02/15/20 16:55 Peripheral/Venous Blood Culture - Preliminary Culture in Progress Mensah/IV: Voiding Method Indwelling Catheter IV Catheter Type [Right Peripheral IV Forearm] IV Catheter Type [Left Hand] INT / Saline Lock Active Medications - Current Medications Current Medications: Generic Name Dose Route Start Last Admin Trade Name Freq PRN Reason Stop Dose Admin Acetaminophen 650 mg 02/15/20 19:31 02/16/20 08:45 Tylenol PO 650 mg Q4H PRN Administration Pain MILD(1-3)/Fever >100.5/CHAPA Albuterol 2.5 mg 02/15/20 19:31 Proventil IH Q4HRT PRN Shortness Of Breath Metronidazole 500 mg in 100 mls @ 100 mls/hr 02/15/20 17:00 02/16/20 06:00 Flagyl 500 Mg/100 Ml IV 100 mls/hr Q8HR [facility] Administration Protocol Vancomycin HCl 1,250 mg/ 275 mls @ 137.5 mls/hr 02/16/20 08:00 02/16/20 08:46 Sodium Chloride IV 137.5 mls/hr Q12H [facility] Administration Sodium Chloride 1,000 mls @ 100 mls/hr 02/15/20 19:45 02/15/20 20:17 Nacl 0.9% 1000 Ml IV 100 mls/hr DIRECT [facility] Administration Ondansetron HCl 4 mg 02/15/20 19:31 Zofran IV Q8H PRN Nausea And Vomiting Sodium Chloride 10 ml 02/15/20 22:00 02/15/20 22:00 Sodium Chloride Flush Syringe 10 Ml IV 10 ml BID [facility] Administration Sodium Chloride 10 ml 02/15/20 19:31 Sodium Chloride Flush Syringe 10 Ml IV PRN PRN LINE FLUSH
[2020-02-16] MEDS ORDERED: NON-FORMULARY EACH (Esomeprazole Magnesium [Nexium] 40 MG) PO SCH (10:00)
[2020-02-16] MEDS ORDERED: ROPINIROLE HCL 0.5 MG PO SCH (10:00)
[2020-02-16] MEDS ORDERED: amLODIPine 5 MG TAB PO SCH (10:00)
[2020-02-16] MEDS ORDERED: rOPINIRole 0.25 MG TAB PO SCH (10:00)
[2020-02-16] MEDS ORDERED: NON-FORMULARY EACH (Lubiprostone [Amitiza] 24 MCG) PO SCH (10:00)
[2020-02-16] MEDS ORDERED: SOLIFENACIN SUCCINATE PO SCH (10:00)
[2020-02-16] MEDS ORDERED: NON-FORMULARY EACH (Simvastatin [Simvastatin] 20 MG) PO SCH (10:00)
[2020-02-16] MEDS ORDERED: NON-FORMULARY EACH (Multivitamin [One-Daily Multi-Vitamin] 1 EACH) PO SCH (10:00)
[2020-02-16] MEDS: PANTOPRAZOLE 40 MG TAB PO SCH (11:06)
[2020-02-16] MEDS: MORPHINE 2 MG/1 ML INJ IV PRN ×2 (11:06→20:25)
[2020-02-16] MEDS: MULTIVITAMINS ,THERAPEUTIC TAB PO SCH (11:06)
[2020-02-16] MEDS: ASPIRIN EC 81 MG TAB PO SCH (11:06)
[2020-02-16] MEDS: LOSARTAN 25 MG TAB PO SCH (11:21)
[2020-02-16] MEDS: amLODIPine 10 MG TAB PO SCH (11:21)
[2020-02-16] MEDS: NYSTATIN POWDER 15 GM TP SCH (11:27)
--- NOTE | 2020-02-16 13:21 | Progress Note ---
Subjective Date of service: 02/16/20 Patient Reports: Positive: no new complaints (pt came to ER because of redness of lower abd wall and concern of her family members regarding it) Narrative: Pt with minimal true abd pain-- mostly irritation of skin due to continued ostomy spillages/etc Migdalia diet Afeb WBC normal CT with no evid post-op complication PE: wound granulating well; upper wound c/d/i and deeply probed to eval for upper wound infection and no drainage/tissue healing well +bs; ostomy pink and with output THERE IS NO SURGICAL COMPLICATION HERE. Pt needs wound/propellant assembler to eval-- I would like vac placed and better HHC arranged (change companies please) for better ostomy management as the ostomy problems are causing the skin irritation. Would cont abx while pt is in hospital (and finish course as outpt) in case there is some component of abd wall cellulitis along with the irritation. d/w RN who will call ostomy/advertising photographer MAIN DIAGNOSES--- ostomy malfunctioning/ abd wall skin irritation/poss cellulitis (unlikely). Objective Vital Signs - 12hr 02/16/20 02/16/20 02/16/20 01:30 03:50 03:59 Temperature 97.6 F Pulse Rate 84 Respiratory 20 20 Rate Blood Pressure 112/45 O2 Sat by Pulse 95 Oximetry 02/16/20 02/16/20 07:31 11:21 Temperature 98.4 F Pulse Rate 88 84 Respiratory 18 Rate Blood Pressure 134/48 123/39 O2 Sat by Pulse 96 Oximetry - Labs 02/16/20 04:08 02/16/20 04:08 Diabetes panel 02/15/20 02/16/20 Range/Units 16:55 04:08 Sodium 137 137 (137-145) mmol/L Potassium 3.5 L 3.9 (3.6-5.0) mmol/L Chloride 102.6 104.0 (98-107) mmol/L Carbon Dioxide 24 21 L (22-30) mmol/L BUN 9 7 (7-17) mg/dL Creatinine 0.5 L 0.5 L (0.6-1.2) mg/dL Glucose 101 H 79 (65-100) mg/dL Calcium 8.3 L 7.5 L (8.4-10.2) mg/dL AST 14 (5-40) units/L ALT 13 (7-56) units/L Alkaline Phosphatase 136 H (35-129) units/L Total Protein 6.3 (6.3-8.2) g/dL Albumin 2.3 L (3.9-5) g/dL Calcium panel 02/15/20 02/16/20 Range/Units 16:55 04:08 Calcium 8.3 L 7.5 L (8.4-10.2) mg/dL Albumin 2.3 L (3.9-5) g/dL Pituitary panel 02/15/20 02/16/20 Range/Units 16:55 04:08 Sodium 137 137 (137-145) mmol/L Potassium 3.5 L 3.9 (3.6-5.0) mmol/L Chloride 102.6 104.0 (98-107) mmol/L Carbon Dioxide 24 21 L (22-30) mmol/L BUN 9 7 (7-17) mg/dL Creatinine 0.5 L 0.5 L (0.6-1.2) mg/dL Glucose 101 H 79 (65-100) mg/dL Calcium 8.3 L 7.5 L (8.4-10.2) mg/dL Adrenal panel 02/15/20 02/16/20 Range/Units 16:55 04:08 Sodium 137 137 (137-145) mmol/L Potassium 3.5 L 3.9 (3.6-5.0) mmol/L Chloride 102.6 104.0 (98-107) mmol/L Carbon Dioxide 24 21 L (22-30) mmol/L BUN 9 7 (7-17) mg/dL Creatinine 0.5 L 0.5 L (0.6-1.2) mg/dL Glucose 101 H 79 (65-100) mg/dL Calcium 8.3 L 7.5 L (8.4-10.2) mg/dL Total Bilirubin 0.30 (0.1-1.2) mg/dL AST 14 (5-40) units/L ALT 13 (7-56) units/L Alkaline Phosphatase 136 H (35-129) units/L Total Protein 6.3 (6.3-8.2) g/dL Albumin 2.3 L (3.9-5) g/dL
[2020-02-17] MEDS: MORPHINE 2 MG/1 ML INJ IV PRN ×5 (01:03→21:25)
[2020-02-17] MEDS: NYSTATIN POWDER 15 GM TP SCH ×3 (01:04→21:32)
[2020-02-17] MEDS: PRAVASTATIN 40 MG TAB PO SCH ×2 (01:05→21:25)
[2020-02-17] MEDS: SODIUM CHLORIDE 0.9% 1000 ML 1,000 ML IV SCH ×2 (04:46→14:52)
[2020-02-17] MEDS: metroNIDAZOLE/NS 500 MG/100 ML 500 MG/100 ML BAG IV SCH ×3 (05:56→21:25)
[2020-02-17 06:11] LABS: Blood Urea Nitrogen 4 mg/dL (7-17); Calcium 7.3 mg/dL (8.4-10.2); Hemolysis Index 5
[2020-02-17 06:20] LABS: BUN/Creatinine Ratio 10; Hematocrit 25.7 % (30.3-42.9); Hemoglobin 8.3 gm/dl (10.1-14.3); Mean Corpuscular HGB Conc 32 % (30-34); Mean Corpuscular Volume 81 fl (79-97); Platelet Count 651 K/mm3 (140-440); Red Blood Count 3.18 M/mm3 (3.65-5.03); Red Cell Distribution Width 19.3 % (13.2-15.2)
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
--- NOTE | 2020-02-17 11:12 | Progress Note ---
Assessment and Plan Assessment and plan: 70 YO Female with HTN, GERD, Cervical Cancer, Chronic Hypokalemia S/P Bowel Resection, Nicotine Dependence presents to ED for evaluation. Patient states that she has experienced abdominal wall discomfort over the past 1 week with worsening symptoms over the past 4 days. Patient acknowledges redness, pain, profuse drainage from her abdominal wall incision. Patient states that pain is 10/10, constant, worsened with movement, relieved somewhat with nonmovement. EMS was notified and upon arrival the patient was found to be in distress and subsequently transported to [facility] for further care and evaluation of the aforementioned symptoms. Patient seen and evaluated in the emergency department. All lab and imaging studies reviewed. Patient underwent CT scan of the abdomen and pelvis which revealed abdominal wall cellulitis. Patient admitted to surgical floor due to increased risk of worsening symptoms. Patient initiated on IV fluid resuscitation therapy, as well as IV antibiotic therapy. Surgical team consulted in ED. Patient denies fever, chills, chest pain, palpitations, productive cough, recent ill contacts, or known exposure to COVID- 19. Prior admission on 01/27/2020 reviewed. All medication listed at time of admission has been reconciled. Advanced care planning conducted in the emergency department. 02/15: Pain control. Wound care to evaluate colostomy bag and leak. Start patient on nystatin powder. Continue antibiotics until reevaluation by surgeon. Restart home medications. Hypokalemia has improved. Change Mensah catheter to purewick. 02/16: Patient for wound vac today, case management to arrange for wound vac for home. No evidence of infectious pathology noted. Patient will need home health on discharge tomorrow and will need to follow at the wound clinic. (1) Abdominal wall cellulitis Current Visit: Yes Status: Acute Plan to address problem: CBC, CMP, CT scan abdomen and pelvis, surgical team consulted, serial abdominal exam, IV antibiotic therapy. Wound care consulted. (2) GERD (gastroesophageal reflux disease) Current Visit: No Status: Acute Qualifiers: Esophagitis presence: without esophagitis Qualified Code(s): K21.9 - Gastro-esophageal reflux disease without esophagitis Plan to address problem: PPI therapy, supportive care. (3) Hypertension Current Visit: No Status: Acute Qualifiers: Hypertension type: essential hypertension Qualified Code(s): I10 - Essential (primary) hypertension Plan to address problem: Monitor blood pressure every shift, continue medical management. (4) DVT prophylaxis Current Visit: No Status: Acute Plan to address problem: SCD to bilateral lower extremities while in bed, patient is ambulatory. (5) Advance care planning Current Visit: No Status: Acute Plan to address problem: Disease education conducted, patient is full code, prognosis discussed, care plan discussed, patient knowledges understanding and agreement with care plan. +30 minutes. History Interval history: Patient seen and examined reports leaking colostomy bag. No new complaints. Reports pain. Hospitalist Physical - Physical exam Narrative exam: VITAL SIGNS: Reviewed. GENERAL: The patient appears normally developed, morbidly obese vital signs as documented. HEAD: No signs of head trauma. EYES: Pupils are equal. Extraocular motions intact. EARS: Hearing grossly intact. MOUTH: Oropharynx is normal. NECK: No adenopathy, no JVD. CHEST: Chest with clear breath sounds bilaterally. No wheezes, rales, or rhonchi. CARDIAC: Regular rate and rhythm. S1 and S2, without murmurs, gallops, or rubs. VASCULAR: No Edema. Peripheral pulses normal and equal in all extremities. ABDOMEN: Surgical casey, right lower quadrant colostomy, dressing over open dehisced wound. Excoriations and redness noted around the wound. Tender with mild guarding. No masses palpated. Bowel Sounds normal. MUSCULOSKELETAL: Good range of motion of all major joints. Extremities without clubbing, cyanosis or edema. NEUROLOGIC EXAM: Alert and oriented x 3 No focal sensory or strength deficits. Speech normal. Follows commands. PSYCHIATRIC: Mood normal. SKIN: detail exam as documented in skin assessment - Constitutional Vitals: Temp Pulse Resp BP Pulse Ox 98.4 F 91 H 20 134/60 96 02/17/20 07:08 02/17/20 07:08 02/17/20 07:08 02/17/20 07:08 02/17/20 07:08 General appearance: Present: mild distress Results - Labs CBC & Chem 7: 02/17/20 05:28 02/17/20 05:28 Labs: Laboratory Last Values WBC 7.3 K/mm3 (4.5-11.0) 02/17/20 05:28 RBC 3.18 M/mm3 (3.65-5.03) L 02/17/20 05:28 Hgb 8.3 gm/dl (10.1-14.3) L 02/17/20 05:28 Hct 25.7 % (30.3-42.9) L 02/17/20 05:28 MCV 81 fl (79-97) 02/17/20 05:28 MCH 26 pg (28-32) L 02/17/20 05:28 MCHC 32 % (30-34) 02/17/20 05:28 RDW 19.3 % (13.2-15.2) H 02/17/20 05:28 Plt Count 651 K/mm3 (140-440) H 02/17/20 05:28 Lymph % (Auto) 17.2 % (13.4-35.0) 02/16/20 04:08 [place] % (Auto) 5.7 % (0.0-7.3) 02/16/20 04:08 Eos % (Auto) 2.8 % (0.0-4.3) 02/16/20 04:08 Baso % (Auto) 1.0 % (0.0-1.8) 02/16/20 04:08 Lymph # (Auto) 1.4 K/mm3 (1.2-5.4) 02/16/20 04:08 [place] # (Auto) 0.5 K/mm3 (0.0-0.8) 02/16/20 04:08 Eos # (Auto) 0.2 K/mm3 (0.0-0.4) 02/16/20 04:08 Baso # (Auto) 0.1 K/mm3 (0.0-0.1) 02/16/20 04:08 Seg Neutrophils % 73.3 % (40.0-70.0) H 02/16/20 04:08 Seg Neutrophils # 6.1 K/mm3 (1.8-7.7) 02/16/20 04:08 PT 14.5 Sec. (12.2-14.9) 02/15/20 16:55 INR 1.15 (0.87-1.13) H 02/15/20 16:55 VBG pH 7.569 (7.320-7.420) H 02/15/20 16:55 Sodium 140 mmol/L (137-145) 02/17/20 05:28 Potassium 3.3 mmol/L (3.6-5.0) L 02/17/20 05:28 Chloride 108.3 mmol/L (98-107) H 02/17/20 05:28 Carbon Dioxide 21 mmol/L (22-30) L 02/17/20 05:28 Anion Gap 14 mmol/L 02/17/20 05:28 BUN 4 mg/dL (7-17) L 02/17/20 05:28 Creatinine 0.4 mg/dL (0.6-1.2) L 02/17/20 05:28 Estimated GFR > 60 ml/min 02/17/20 05:28 BUN/Creatinine Ratio 10 % 02/17/20 05:28 Glucose 89 mg/dL (65-100) 02/17/20 05:28 Lactic Acid 0.90 mmol/L (0.7-2.0) 02/15/20 19:51 Calcium 7.3 mg/dL (8.4-10.2) L 02/17/20 05:28 Magnesium 1.10 mg/dL (1.7-2.3) L 02/15/20 16:55 Total Bilirubin 0.30 mg/dL (0.1-1.2) 02/15/20 16:55 Direct Bilirubin < 0.2 mg/dL (0-0.2) 02/15/20 16:55 Indirect Bilirubin 0.1 mg/dL 02/15/20 16:55 AST 14 units/L (5-40) 02/15/20 16:55 ALT 13 units/L (7-56) 02/15/20 16:55 Alkaline Phosphatase 136 units/L (35-129) H 02/15/20 16:55 Total Creatine Kinase 20 units/L (30-135) L 02/15/20 16:55 CK-MB (CK-2) 1.1 ng/mL (0.0-4.0) 02/15/20 16:55 CK-MB (CK-2) Rel Index 5.5 (0-4) H 02/15/20 16:55 NT-Pro-B Natriuret Pep 253.2 pg/mL (0-900) 02/15/20 16:55 Total Protein 6.3 g/dL (6.3-8.2) 02/15/20 16:55 Albumin 2.3 g/dL (3.9-5) L 02/15/20 16:55 Albumin/Globulin Ratio 0.6 % 02/15/20 16:55 Lipase 47 units/L (13-60) 02/15/20 16:55 Urine Color Yellow (Yellow) 02/15/20 21:05 Urine Turbidity Clear (Clear) 02/15/20 21:05 Urine pH 5.0 (5.0-7.0) 02/15/20 21:05 Ur Specific [place] 1.055 (1.003-1.030) H 02/15/20 21:05 Urine Protein <15 mg/dl mg/dL (Negative) 02/15/20 21:05 Urine Glucose (UA) Neg mg/dL (Negative) 02/15/20 21:05 Urine Ketones Tr mg/dL (Negative) 02/15/20 21:05 Urine Blood Neg (Negative) 02/15/20 21:05 Urine Nitrite Neg (Negative) 02/15/20 21:05 Urine Bilirubin Neg (Negative) 02/15/20 21:05 Urine Urobilinogen < 2.0 mg/dL (<2.0) 02/15/20 21:05 Ur Leukocyte Esterase Neg (Negative) 02/15/20 21:05 Urine WBC (Auto) 2.0 /HPF (0.0-6.0) 02/15/20 21:05 Urine RBC (Auto) 1.0 /HPF (0.0-6.0) 02/15/20 21:05 U Epithel Cells (Auto) < 1.0 /HPF (0-13.0) 02/15/20 21:05 Urine Bacteria (Auto) 1+ /HPF (Negative) 02/15/20 21:05 Urine Mucus Few /HPF 02/15/20 21:05 Urine Yeast (Budding) 2+ /HPF 02/15/20 21:05 Blood Type O POSITIVE 02/15/20 16:55 Antibody Screen Negative 02/15/20 16:55 Microbiology: Microbiology 02/15/20 16:55 Peripheral/Venous Blood Culture - Preliminary NO GROWTH AFTER 24 HOURS 02/15/20 16:55 Peripheral/Venous Blood Culture - Preliminary NO GROWTH AFTER 24 HOURS 02/15/20 21:05 Abdomen Wound Culture - Preliminary Gram Negative David Mensah/IV: Voiding Method External Female Catheter IV Catheter Type [Right Peripheral IV Forearm] IV Catheter Type [Left Hand] INT / Saline Lock Active Medications - Current Medications Current Medications: Generic Name Dose Route Start Last Admin Trade Name Freq PRN Reason Stop Dose Admin Acetaminophen 650 mg 02/15/20 19:31 02/16/20 08:45 Tylenol PO 650 mg Q4H PRN Administration Pain MILD(1-3)/Fever >100.5/CHAPA Albuterol 2.5 mg 02/15/20 19:31 Proventil IH Q4HRT PRN Shortness Of Breath Amlodipine Besylate 10 mg 02/16/20 10:00 02/16/20 11:21 Amlodipine PO 10 mg DAILY JAYY Administration Aspirin 81 mg 02/16/20 10:00 02/16/20 11:06 Halfprin Ec PO 81 mg DAILY JAYY Administration Metronidazole 500 mg in 100 mls @ 100 mls/hr 02/15/20 17:00 02/17/20 05:56 Flagyl 500 Mg/100 Ml IV 100 mls/hr Q8HR JAYY Administration Protocol Vancomycin HCl 1,250 mg/ 275 mls @ 137.5 mls/hr 02/16/20 08:00 02/16/20 20:53 Sodium Chloride IV 137.5 mls/hr Q12H JAYY Administration Sodium Chloride 1,000 mls @ 100 mls/hr 02/15/20 19:45 02/17/20 04:46 Nacl 0.9% 1000 Ml IV 100 mls/hr DIRECT JAYY Administration Losartan Potassium 25 mg 02/16/20 10:00 02/16/20 11:21 Cozaar PO Not Given QDAY JAYY Miscellaneous Medication 1 tab 02/16/20 10:00 Solifenacin Succinate [Solifenacin Succinate] PO DAILY JAYY Miscellaneous Medication 24 mcg 02/16/20 10:00 Lubiprostone [Amitiza] PO DAILY JAYY Morphine Sulfate 2 mg 02/16/20 09:40 02/17/20 05:55 Morphine IV 2 mg Q4H PRN Administration Pain, Moderate (4-6) Multivitamins 1 each 02/16/20 10:00 02/16/20 11:06 Theragran Tab PO 1 each DAILY JAYY Administration Nystatin 1 applic 02/16/20 10:00 02/17/20 01:04 Nystop TP 1 applic BID JAYY Administration Ondansetron HCl 4 mg 02/15/20 19:31 Zofran IV Q8H PRN Nausea And Vomiting Pantoprazole Sodium 40 mg 02/16/20 10:00 02/16/20 11:06 Protonix PO 40 mg DAILY JAYY Administration Pravastatin Sodium 40 mg 02/16/20 22:00 02/17/20 01:05 Pravachol PO 40 mg QHS JAYY Administration Ropinirole HCl 0.5 mg 02/17/20 22:00 Requip PO QHS JAYY Sodium Chloride 10 ml 02/15/20 22:00 02/16/20 22:00 Sodium Chloride Flush Syringe 10 Ml IV Not Given BID JAYY Sodium Chloride 10 ml 02/15/20 19:31 Sodium Chloride Flush Syringe 10 Ml IV PRN PRN LINE FLUSH
[2020-02-17] MEDS: ASPIRIN EC 81 MG TAB PO SCH (11:25)
[2020-02-17] MEDS: LOSARTAN 25 MG TAB PO SCH (11:25)
[2020-02-17] MEDS: MULTIVITAMINS ,THERAPEUTIC TAB PO SCH (11:26)
[2020-02-17] MEDS: amLODIPine 10 MG TAB PO SCH (11:26)
[2020-02-17] MEDS: PANTOPRAZOLE 40 MG TAB PO SCH (11:26)
[2020-02-17] MEDS: VANCOMYCIN 1,250 MG in SODIUM CHLORIDE 0.9% 250ML 250 ML IV SCH ×2 (20:50→22:37)
[2020-02-17] MEDS ORDERED: rOPINIRole 0.25 MG TAB PO SCH (22:00)
[2020-02-17] MEDS: ONDANSETRON 4 MG/2 ML INJ IV PRN (23:08)
[2020-02-18] MEDS: ONDANSETRON 4 MG/2 ML INJ IV PRN ×2 (02:18→10:32)
[2020-02-18] MEDS: metroNIDAZOLE/NS 500 MG/100 ML 500 MG/100 ML BAG IV SCH (05:38)
[2020-02-18] MEDS: VANCOMYCIN 1,250 MG in SODIUM CHLORIDE 0.9% 250ML 250 ML IV SCH (09:12)
[2020-02-18] MEDS: amLODIPine 10 MG TAB PO SCH (09:12)
[2020-02-18] MEDS: ASPIRIN EC 81 MG TAB PO SCH (09:12)
[2020-02-18] MEDS: MULTIVITAMINS ,THERAPEUTIC TAB PO SCH (09:12)
[2020-02-18] MEDS: LOSARTAN 25 MG TAB PO SCH (09:12)
[2020-02-18] MEDS: PANTOPRAZOLE 40 MG TAB PO SCH (09:12)
[2020-02-18] MEDS: NYSTATIN POWDER 15 GM TP SCH (09:12)
--- NOTE | 2020-02-18 10:31 | Discharge Summary ---
Providers - Providers Date of Admission: 02/15/20 19:31 Attending physician: KERRI MUJICA MD 02/15/20 18:58 Consult to Physician [CONS] Urgent Comment: Consulting Provider: LEW HURST Physician Instructions: Reason For Exam: Post Operative Infection 02/15/20 19:34 Consult to Wound/ET Nurse [CONS] Routine Reason For Exam: wound eval 02/16/20 20:29 Consult to Case Management [CONS] Routine Services Needed at Discharge: Home Health Services Wound Vac Notified:: No answer Phone number called:: [phone] Was contact made?: No Comment:: Will endorse to call Monday02/17/2020 Additional Physician Instructions: Please provide new Home Health Care agency to manage wound care Hospitalization Condition: Stable Hospital course: 70 YO Female with HTN, GERD, Cervical Cancer, Chronic Hypokalemia S/P Bowel Resection, Nicotine Dependence presents to ED for evaluation. Patient states that she has experienced abdominal wall discomfort over the past 1 week with worsening symptoms over the past 4 days. Patient acknowledges redness, pain, profuse drainage from her abdominal wall incision. Patient states that pain is 10/10, constant, worsened with movement, relieved somewhat with nonmovement. EMS was notified and upon arrival the patient was found to be in distress and subsequently transported to [facility] for further care and evaluation of the aforementioned symptoms. Patient seen and evaluated in the emergency department. All lab and imaging studies reviewed. Patient underwent CT scan of the abdomen and pelvis which revealed abdominal wall cellulitis. Patient admitted to surgical floor due to increased risk of worsening symptoms. Patient initiated on IV fluid resuscitation therapy, as well as IV antibiotic therapy. Surgical team consulted in ED. Patient denies fever, chills, chest pain, palpitations, productive cough, recent ill contacts, or known exposure to COVID- 19. Prior admission on 01/27/2020 reviewed. All medication listed at time of admission has been reconciled. Advanced care planning conducted in the emergency department. 02/15: Pain control. Wound care to evaluate colostomy bag and leak. Start patient on nystatin powder. Continue antibiotics until reevaluation by surgeon. Restart home medications. Hypokalemia has improved. Change Mensah catheter to purewick. 02/16: Patient for wound vac today, case management to arrange for wound vac for home. No evidence of infectious pathology noted. Patient will need home health on discharge tomorrow and will need to follow at the wound clinic. 02/17: Clinically stable, Surgeon discussed pathology report and positive nodes concerning for colon malignancy. Patient to follow with Oncologist KAYLA on discharge, Wound vac and wound care instructions provided. (1) Abdominal wall cellulitis Current Visit: Yes Status: Acute Plan to address problem: CBC, CMP, CT scan abdomen and pelvis, surgical team consulted, serial abdominal exam, IV antibiotic therapy. Wound care consulted. (2) GERD (gastroesophageal reflux disease) Current Visit: No Status: Acute Qualifiers: Esophagitis presence: without esophagitis Qualified Code(s): K21.9 - Gastro-esophageal reflux disease without esophagitis Plan to address problem: PPI therapy, supportive care. (3) Hypertension Current Visit: No Status: Acute Qualifiers: Hypertension type: essential hypertension Qualified Code(s): I10 - Essential (primary) hypertension Plan to address problem: Monitor blood pressure every shift, continue medical management. (4) Colon CA (5)Hypokalemia Current Visit: No Status: Acute Plan to address problem: Disease education conducted, patient is full code, prognosis discussed, care plan discussed, patient knowledges understanding and agreement with care plan. +30 minutes. Disposition: [id number] HOME UNDER HOME [facility] Time spent for discharge: 35 MINS Exam - Constitutional Vitals: Temp Pulse Resp BP Pulse Ox 98.9 F 89 18 140/57 92 02/18/20 07:56 02/18/20 07:56 02/18/20 07:56 02/18/20 07:56 02/18/20 07:56 Plan Activity: advance as tolerated, fall precautions Diet: low fat Wound: per your surgeon's advice, per wound nurse instructions Special Instructions: record daily weights, record daily BP diary Follow up with: MORALES MAK EAGLES LANDIN [Other] - 3-5 Days LEW HURST MD [Staff Physician] - 7 Days KATHY HOUSE MD [Staff Physician] - 7 Days Prescriptions: Ciprofloxacin HCl [Ciprofloxacin TAB] 500 mg PO Q12HR #20 tab metroNIDAZOLE [Flagyl] 500 mg PO Q8HR #30 tablet Nystatin [Nystop Powder] 1 applic TP BID #1 powder
[2020-02-18] MEDS: MORPHINE 2 MG/1 ML INJ IV PRN (10:32)
[2020-02-18 16:46] VITALS: BP 118/46
[2020-02-18] MEDS: ACETAMINOPHEN 325 MG TAB PO PRN (18:30)
--- NOTE | 2020-02-18 19:11 | Progress Note ---
Assessment and Plan Pt can go home tonight-- NO NEED to wait for vac at home. Pt can go with vac drsg (foam/airtight clear cover) or moist-dry NS gauze drsg and switch back to vac when it arrives at her home. d/w RNs and pt Subjective Date of service: 02/18/20 Patient Reports: Positive: no new complaints Objective Vital Signs - 12hr 02/18/20 02/18/20 02/18/20 07:56 11:43 16:30 Temperature 98.9 F 98.6 F 98.2 F Pulse Rate 89 84 84 Respiratory 18 18 18 Rate Blood Pressure 140/57 118/55 118/46 O2 Sat by Pulse 92 93 96 Oximetry - Labs 02/17/20 05:28 02/17/20 05:28
== END 2020-02-18 20:00 | disposition home health service (06) | DRG 603 ==
LOC: ED 15:30 → 3B-SURG 19:31
PROVIDERS: ADMIT Internal Medicine; ATTEND Internal Medicine
DX: L03.311 Cellulitis of abdominal wall (principal); K21.9 Gastro-esophageal reflux disease without esophagitis; I10 Essential (primary) hypertension; E87.6 Hypokalemia; E03.9 Hypothyroidism, unspecified; E66.09 Other obesity due to excess calories; F41.9 Anxiety disorder, unspecified; F32.9 Major depressive disorder, single episode, unspecified; Z79.899 Other long term (current) drug therapy; Z93.3 Colostomy status; Z85.038 Personal history of other malignant neoplasm of large intestine; Z79.2 Long term (current) use of antibiotics; Z85.41 Personal history of malignant neoplasm of cervix uteri; Z93.2 Ileostomy status; Z90.710 Acquired absence of both cervix and uterus; Z79.891 Long term (current) use of opiate analgesic; Z82.49 Family history of ischemic heart disease and other diseases of the circulatory system; Z63.5 Disruption of family by separation and divorce; Z68.27 Body mass index [BMI] 27.0-27.9, adult
CPT/HCPCS: 36415; 71045; 74177; 80048; 80076; 81001; 82140; 82550; 82553; 82805; 83690; 83735; 83880; 85025; 85027; 85610; 86850; 86900; 86901; 87040; 87076; 87086; 87116; 87186; 90471; 93005; 96372; G0378; A9270-GY; J1170; J2185; J2270; J2405; J3370; J3475; J7030; J7040; J7050; Q9967

== ENCOUNTER 2020-02-24 10:56 | Outpatient (CLI) | payer MEDICARE | END 2020-02-24 10:57 | disposition home or self-care (01) | LOC: WOUND 10:56 | PROVIDERS: ATTEND Surgery | DX: K94.13 Enterostomy malfunction (principal); E87.6 Hypokalemia; K21.9 Gastro-esophageal reflux disease without esophagitis; I10 Essential (primary) hypertension; C18.9 Malignant neoplasm of colon, unspecified; F17.290 Nicotine dependence, other tobacco product, uncomplicated; F32.9 Major depressive disorder, single episode, unspecified; F40.240 Claustrophobia; F41.9 Anxiety disorder, unspecified; S31.109S Unspecified open wound of abdominal wall, unspecified quadrant without penetration into peritoneal cavity, sequela; Y83.8 Other surgical procedures as the cause of abnormal reaction of the patient, or of later complication, without mention of misadventure at the time of the procedure; Z90.710 Acquired absence of both cervix and uterus; Z85.41 Personal history of malignant neoplasm of cervix uteri | CPT/HCPCS: 97605 ==